=== PATIENT | female | born 1990 | race Caucasian/White ===

== ENCOUNTER 2022-12-09 10:54 | Inpatient (IN) | payer MEDICAID, SELFPAY ==
--- NOTE | ~2022-12-09 | US_ITS ---
EXAMINATION: US ABDOMEN LIMITED CLINICAL INFORMATION: Abdominal pain rule out cholecystitis.. COMPARISON: None TECHNIQUE: Real-time imaging of the right upper quadrant abdominal viscera. FINDINGS: PANCREAS: The visualized portion of the pancreas head and body are normal, portion of the pancreatic body and tail, not visualized are obscured by bowel gas. LIVER: Normal. The liver is normal in size. The liver contour is normal. Parenchymal echogenicity is normal. No focal hepatic lesion. There is no intrahepatic biliary duct dilatation seen. GALLBLADDER: Large gallstones. There is diffuse thickening of the gallbladder wall, there is gallbladder wall edema, gallbladder measure up to 6 mm, tenderness reported pressing on the gallbladder, these combined highly suspicious for acute cholecystitis. COMMON BILE DUCT: Normal in caliber measuring 0.3 cm in diameter. FREE FLUID: None. US/US abdomen limited IMPRESSION: * Ultrasound finding suggest Acute cholecystitis, this can be confirmed by HIDA scan if clinically indicated, surgical consult warranted. (Referring physician staff is being called, to be alerted of the above findings and recommendations.) Darrell Washington
[2022-12-09 11:00] VITALS: BP 129/93; PULSE 120; RESP 16; TEMP 36.9; O2SAT 100; BMI 26.0
[2022-12-09 11:20] LABS: MANUAL DIFF FLAG NO
[2022-12-09 11:23] LABS: Appearance Urine Turbid; Color Urine Yellow; Glucose Urine UA Negative (Negative); Leukocyte Esterase Urine Negative (Negative); Nitrite Urine Negative (Negative); PH 8.5 (5.0-9.0); Specific Gravity - Urine >= 1.030 (1.005-1.025); UMIC TRIGGER UACC YES; Urine Blood Negative (Negative); Urine Ketones Negative (Negative); Urine Protein 30 (1+) mg/dL (Neg-Trace)
[2022-12-09 11:24] LABS: UPreg QC Valid YES; Urine Pregnancy NEGATIVE (NEGATIVE)
[2022-12-09 11:28] LABS: Bacteria Urine None Seen (None Seen); Hyaline Casts Urine 0-2 /LPF (0-2); RBC Urine 0-2 /HPF (0-2); Squamous Epithelial Cell Urine 0-2 /HPF (0-2); WBC Urine 0-5 /HPF (0-5)
[2022-12-09 11:35] LABS: Basophils Absolute Auto 0.1 X10*3/uL (0.0-0.2); Basophils Percent Auto 0.9 % (0-2); Eosinophils Absolute Auto 0.2 X10*3/uL (0.0-0.4); Eosinophils Percent Auto 2.2 % (0-4); Hematocrit 39.3 % (37.0-47.0); Imm Gran Abs Auto 0.01 X10*3/uL (0.00-0.03); Imm Gran Pct Auto 0.1 % (0.0-0.4); Lymphocytes Absolute Auto 1.7 X10*3/uL (1.2-4.9); Lymphocytes Percent Auto 19.8 % (20-40); Mean Corpuscular HGB Conc 33.1 g/dl (31.0-35.0); Mean Corpuscular Hemoglobin 23.3 pg (27.0-33.0); Mean Corpuscular Volume 70.4 fL (80.0-98.0); Mean Platelet Volume 11.5 fL (9.4-12.3); Monocytes Absolute Auto 0.7 X10*3/uL (0.1-1.2); Monocytes Percent Auto 7.5 % (2-11); Neutrophils Percent Auto 69.5 % (45-73); Platelet Count 276 X10*3/uL (160-400); Red Blood Count 5.58 X10*6/uL (4.20-5.50); Red Cell Distribution Width 14.6 % (11.0-16.0); White Blood Count 8.6 X10*3/uL (4.8-10.8)
[2022-12-09 11:50] LABS: Anion Gap 15 (12-20); Blood Urea Nitrogen 8 mg/dL (9-16); Calcium 9.3 mg/dL (8.4-10.2); Carbon Dioxide 22 mmol/L (22-29); Chloride 105 mmol/L (96-108); Creatinine Clr Calc Pharmacy 91.6; Estimated Glomerular Filt Rate > 60; Glucose Random 111 mg/dL (60-115); Potassium 3.7 mmol/L (3.3-5.1); Sodium 138 mmol/L (135-145)
[2022-12-09 12:13] LABS: Alanine Aminotransferase 19 U/L (0-31); Albumin Level 4.3 g/dL (3.5-5.0); Alkaline Phosphatase 120 U/L (39-117); Aspartate Amino Transferase 19 U/L (5-31); Bilirubin Direct 0.2 mg/dL (0.0-0.5); Bilirubin Total 0.9 mg/dL (0.0-1.0); Lipase 18 U/L (8-78); Total Protein 7.8 g/dL (6.5-8.0)
[2022-12-09] MEDS: Ketorolac Tromethamine 15 MG/ML VIAL IVPUSH (13:01)
[2022-12-09] MEDS: 0.9 % Sodium Chloride 1,000 ML 999 ML IV (13:01)
[2022-12-09] MEDS: Magnesium Hydrox/Alum Hydrox 30 ML ORAL.SUSP PO (13:01)
--- NOTE | 2022-12-09 13:05 | PC.NURSE ---
Alert and oriented, respirations even and unlabored. IV established, medicated per the MAR.
[2022-12-09 14:25] VITALS: BP 133/92; PULSE 74; RESP 16; TEMP 36.9; O2SAT 100
[2022-12-09] MEDS: Famotidine/PF 20 MG/2 ML VIAL IVPUSH (14:28)
--- NOTE | 2022-12-09 15:05 | ED_ITS ---
HPI - Abdominal Pain General Chief Complaint: Abdominal Pain Stated Complaint: upper abd pain, back pain Time Seen by Provider: 12/09/22 11:53 Source: patient Mode of arrival: ambulatory Limitations: no limitations History of Present Illness HPI narrative: 32-year-old female presents emergency room complaining of epigastric pain pain started this morning she denies any fevers chills she does have some associated nausea and vomiting with diarrhea yesterday as well. Patient states she has no associated fatty foods or spicy foods she has had no history of surgeries MD elicited complaint: abdominal pain Related Data Allergies Allergy/AdvReac Type Severity Reaction Status Date / Time No Known Allergies Allergy Verified 12/09/22 10:59 [No Known Allergies*] Review of Systems Review of Systems Review of systems: General: Patient denies any fever chills recent illness or falls Musculoskeletal: Denies back pain or body aches or other injuries HEENT: denies headache, runny nose, ear pain Respiratory: denies shortness of breath, cough Cardiovascular: no chest pain or palpitations : denies dysuria, frequency Abdomen: no nausea vomiting denies abdominal pain Extremities: no swelling, no pain Skin: no diaphoresis Yes all other systems are reviewed and are negative PMFSH Social History Social History Advance Directives: No Advance Directives Information Provided: No Physical Exam ED Vital Signs: Vital Signs - 24 hr 12/09/22 11:00 12/09/22 14:25 Temperature 98.4 F 98.5 F Pulse Rate 120 H 74 Respiratory Rate 16 16 Blood Pressure 129/93 H 133/92 H Pulse Oximetry 100 100 Oxygen Delivery Method Room Air Room Air BMI result Body Mass Index 26.0 General: Well-appearing well-nourished in no signs of distress HEENT: Normocephalic atraumatic Neck: No signs of JVD, no masses no tenderness or lymphadenopathy Cardiovascular: Regular rate and rhythm Respiratory: Clear to auscultation bilaterally Abdomen: Soft tender in the epigastric area negative burnett sign no masses Extremities: Normal pedal pulses no signs of edema Skin: Dry warm no rashes Back: No tenderness full ROM Medical Decision Making Medical Decision Making MDM Narrative: I will treat the patient with fluids check labs to rule out cholecystitis. Labs do show an elevation in the alk-phos which time I sent the patient for formal ultrasound formal ultrasound shows acute cholecystitis. I spoke with Dr. Will go from surgery who agrees the patient need admission patient is Rashid on that surgery Differential Diagnosis Differential Diagnoses: The differential diagnosis associated with the presentation includes Gastritis cholecystitis bowel perforation bowel obstruction. Admission/Observation Consideration of admission/observation: Escalation of care including admission/observation considered Consult Healthcare Provider Management of the patient was discussed with: Tenderizer Tender Dr. Ramsey for acute cholecystitis Lab Data MDM Lab Attestation statement: I reviewed the patient's lab results. 12/09/22 11:09 12/09/22 11:09 Labs: Lab Results 12/09/22 12/09/22 12/09/22 Range/Units 11:09 11:09 11:09 WBC 8.6 (4.8-10.8) X10*3/uL RBC 5.58 H (4.20-5.50) X10*6/uL Hgb 13.0 (12.0-16.0) g/dl Hct 39.3 (37.0-47.0) % MCV 70.4 L (80.0-98.0) fL MCH 23.3 L (27.0-33.0) pg MCHC 33.1 (31.0-35.0) g/dl RDW 14.6 (11.0-16.0) % Plt Count 276 (160-400) X10*3/uL MPV 11.5 (9.4-12.3) fL Immature Gran % (Auto) 0.1 (0.0-0.4) % Neut % (Auto) 69.5 (45-73) % Lymph % (Auto) 19.8 L (20-40) % [place] % (Auto) 7.5 (2-11) % Eos % (Auto) 2.2 (0-4) % Baso % (Auto) 0.9 (0-2) % Lymph # (Auto) 1.7 (1.2-4.9) X10*3/uL [place] # (Auto) 0.7 (0.1-1.2) X10*3/uL Eos # (Auto) 0.2 (0.0-0.4) X10*3/uL Baso # (Auto) 0.1 (0.0-0.2) X10*3/uL Abs Immat Gran (auto) 0.01 (0.00-0.03) X10*3/uL Absolute Neuts (auto) 6.0 (2.0-8.3) x10*3/uL Absolute Nucleated RBC 0.000 (0.0-0.012) X10*3/uL Nucleated RBC % (auto) 0.0 (0.0-0.2) /100WBC Sodium 138 (135-145) mmol/L Potassium 3.7 (3.3-5.1) mmol/L Chloride 105 (96-108) mmol/L Carbon Dioxide 22 (22-29) mmol/L Anion Gap 15 (12-20) BUN 8 L (9-16) mg/dL Creatinine 0.74 (0.5-1.4) mg/dL Estim Creat Clear Calc 91.6 Estimated GFR > 60 Random Glucose 111 (60-115) mg/dL Calcium 9.3 (8.4-10.2) mg/dL Total Bilirubin 0.9 (0.0-1.0) mg/dL Direct Bilirubin 0.2 (0.0-0.5) mg/dL AST 19 (5-31) U/L ALT 19 (0-31) U/L Alkaline Phosphatase 120 H (39-117) U/L Total Protein 7.8 (6.5-8.0) g/dL Albumin 4.3 (3.5-5.0) g/dL Lipase 18 (8-78) U/L Urine Color Yellow Urine Appearance Turbid Urine pH 8.5 (5.0-9.0) Ur Specific [place] >= 1.030 H (1.005-1.025) Urine Protein 30 (1+) H (Neg-Trace) mg/dL Urine Glucose (UA) Negative (Negative) mg/dL Urine Ketones Negative (Negative) mg/dL Urine Blood Negative (Negative) Urine Nitrite Negative (Negative) Ur Leukocyte Esterase Negative (Negative) Urine RBC 0-2 (0-2) /HPF Urine WBC 0-5 (0-5) /HPF Ur Squamous Epith Cells 0-2 (0-2) /HPF Urine Bacteria None Seen (None Seen) Hyaline Casts 0-2 (0-2) /LPF Urine Test (NEGATIVE) 12/09/22 Range/Units 11:09 WBC (4.8-10.8) X10*3/uL RBC (4.20-5.50) X10*6/uL Hgb (12.0-16.0) g/dl Hct (37.0-47.0) % MCV (80.0-98.0) fL MCH (27.0-33.0) pg MCHC (31.0-35.0) g/dl RDW (11.0-16.0) % Plt Count (160-400) X10*3/uL MPV (9.4-12.3) fL Immature Gran % (Auto) (0.0-0.4) % Neut % (Auto) (45-73) % Lymph % (Auto) (20-40) % [place] % (Auto) (2-11) % Eos % (Auto) (0-4) % Baso % (Auto) (0-2) % Lymph # (Auto) (1.2-4.9) X10*3/uL [place] # (Auto) (0.1-1.2) X10*3/uL Eos # (Auto) (0.0-0.4) X10*3/uL Baso # (Auto) (0.0-0.2) X10*3/uL Abs Immat Gran (auto) (0.00-0.03) X10*3/uL Absolute Neuts (auto) (2.0-8.3) x10*3/uL Absolute Nucleated RBC (0.0-0.012) X10*3/uL Nucleated RBC % (auto) (0.0-0.2) /100WBC Sodium (135-145) mmol/L Potassium (3.3-5.1) mmol/L Chloride (96-108) mmol/L Carbon Dioxide (22-29) mmol/L Anion Gap (12-20) BUN (9-16) mg/dL Creatinine (0.5-1.4) mg/dL Estim Creat Clear Calc Estimated GFR Random Glucose (60-115) mg/dL Calcium (8.4-10.2) mg/dL Total Bilirubin (0.0-1.0) mg/dL Direct Bilirubin (0.0-0.5) mg/dL AST (5-31) U/L ALT (0-31) U/L Alkaline Phosphatase (39-117) U/L Total Protein (6.5-8.0) g/dL Albumin (3.5-5.0) g/dL Lipase (8-78) U/L Urine Color Urine Appearance Urine pH (5.0-9.0) Ur Specific [place] (1.005-1.025) Urine Protein (Neg-Trace) mg/dL Urine Glucose (UA) (Negative) mg/dL Urine Ketones (Negative) mg/dL Urine Blood (Negative) Urine Nitrite (Negative) Ur Leukocyte Esterase (Negative) Urine RBC (0-2) /HPF Urine WBC (0-5) /HPF Ur Squamous Epith Cells (0-2) /HPF Urine Bacteria (None Seen) Hyaline Casts (0-2) /LPF Urine Test NEGATIVE (NEGATIVE) Independent Interpretation I performed an independent interpretation of an: Ultrasound Radiology Impression Discussion of test interpretation with radiology: I have reviewed the radiologist's reading. Medications Administered Discontinued Medications Generic Name Dose Route Start Last Admin Trade Name Freq PRN Reason Stop Dose Admin Al Hydroxide/Mg Hydroxide 30 ml 12/09/22 12:49 12/09/22 13:01 Magnesium Hydrox/Alum Hydrox 30 Ml Oral.Susp PO 12/09/22 12:50 30 ml ONCE ONE Administration Famotidine 20 mg 12/09/22 14:11 12/09/22 14:28 Famotidine/Pf 20 Mg/2 Ml Vial IVPUSH 12/09/22 14:12 20 mg ONCE ONE Administration Sodium Chloride 1,000 mls @ 999 mls/hr 12/09/22 13:00 12/09/22 13:01 Ns IV 12/09/22 14:00 999 mls/hr .Q1H1M NICOLETTE Administration Ketorolac Tromethamine 15 mg 12/09/22 12:49 12/09/22 13:01 Ketorolac Tromethamine 15 Mg/Ml Vial IVPUSH 12/09/22 12:50 15 mg ONCE ONE Administration Discharge Plan Discharge Clinical Impression: Acute cholecystitis Patient Disposition: Admitted As Inpatient
--- NOTE | 2022-12-09 15:14 | P.HPGS_ITS ---
History of Present Illness History of Present Illness Date of Service: 12/09/22 Chief complaint: acute cholecystitis Narrative: Roxanne Ca is a 32 year old female who reports that she is in the care of [facility] because of a mass on her left gastrocnemius/popliteal fossa for which she states she is taking Nexavar. She also reports a history of sickle cell but it is unclear whether she has trait or the actual disease. She is admitted through the emergency room after developing abdominal pain yesterday and having workup that included CT and ultrasound that showed concerns for acute cholecystitis versus biliary colic. Patient is seen with the help of the pick and shovel worker and her is at the bedside. Patient notes that the pain is abated somewhat but there is still an ache in her right upper quadrant. She has been sipping Gatorade apparently. Review of Systems Review of Systems: Yes all other systems are reviewed and are negative Constitutional: Constitutional: Reports as per [facility] Social History Social History Advance Directives: No Advance Directives Information Provided: No Meds Allergies Allergy/AdvReac Type Severity Reaction Status Date / Time No Known Allergies Allergy Verified 12/09/22 10:59 [No Known Allergies*] Active Medications: Current Medications Hydromorphone HCl (Hydromorphone Hcl 0.5 Mg/0.5 Ml Syringe) 0.25 mg IVPUSH Q2H PRN; Protocol PRN Reason: Pain, Moderate (Pain Scale 4-6 Piperacillin Sod/Tazobactam (Sod 4.5 gm/ Sodium Chloride) 100 mls @ 200 mls/hr IV ONCE ONE Stop: 12/09/22 15:33 Lactated Ringer's (Lr) 1,000 mls @ 100 mls/hr IVCONT .Q10H NICOLETTE Ondansetron HCl (Ondansetron Hcl 4 Mg/2 Ml Vial) 4 mg IVPUSH Q6H PRN PRN Reason: Nausea and Vomiting Sodium Chloride (0.9 % Sodium Chloride Flush 3 Ml Syringe) [facility] Medications Medication Instructions Recorded Confirmed Last Taken Type No Known Home Meds 12/09/22 12/09/22 Unknown History Physical Exam Vital Signs: Vital Signs: Last Vital Signs Temp 98.5 F 12/09/22 14:25 Pulse 74 12/09/22 14:25 Resp 16 12/09/22 14:25 BP 133/92 H 12/09/22 14:25 Pulse Ox 100 12/09/22 14:25 O2 Del Method 12/09/22 14:25 BMI result Body Mass Index 26.0 The patient is non-toxic & in good spirits NC/AT, PERRLA, EOMI Mood, affect & judgment all appear appropriate Sclera anicteric conjunctiva pink and moist Oropharynx is clear with no aphthous ulcers, Mallampati class 4, mucous membranes moist Neck is supple with no masses, adenopathy or bruits Heart is regular, normal S1-S2 no rubs or murmurs Lungs are clear and equal anteriorly with no audible wheezing, rubs or dullness to percussion No CVA tenderness present Abdomen is overweight with no demonstrable hernias. There is vague right upper quadrant discomfort with no peritoneal sign and no guarding No HSM, rebound, rigidity, guarding, masses or bruits are present. Rectal exam is deferred Skin has good turgor and is free of rashes Extremities free of cyanosis clubbing edema but in the patient's left pot infrapopliteal and gastrocnemius area, a firm mass is palpable which is nontender Results Results Labs: Short CBC 12/09/22 Range/Units 11:09 WBC 8.6 (4.8-10.8) X10*3/uL Hgb 13.0 (12.0-16.0) g/dl Hct 39.3 (37.0-47.0) % Plt Count 276 (160-400) X10*3/uL BMP 12/09/22 11:09 Sodium 138 Potassium 3.7 Chloride 105 Carbon Dioxide 22 BUN 8 L Creatinine 0.74 Calcium 9.3 Liver Function 12/09/22 Range/Units 11:09 Total Bilirubin 0.9 (0.0-1.0) mg/dL Direct Bilirubin 0.2 (0.0-0.5) mg/dL AST 19 (5-31) U/L ALT 19 (0-31) U/L Alkaline Phosphatase 120 H (39-117) U/L Albumin 4.3 (3.5-5.0) g/dL Urine 12/09/22 12/09/22 Range/Units 11:09 11:09 Urine Color Yellow Urine Appearance Turbid Urine pH 8.5 (5.0-9.0) Ur Specific [place] >= 1.030 H (1.005-1.025) Urine Protein 30 (1+) H (Neg-Trace) mg/dL Urine Glucose (UA) Negative (Negative) mg/dL Urine Test NEGATIVE (NEGATIVE) Abdominal ultrasound report/results: report reviewed Assessment and Plan (1) Acute cholecystitis: Status: Acute (2) Sickle cell anemia: Status: Acute (3) Mass of left lower leg: Status: Acute Plan NPO, IVF, analgesics & antiemetics See orders Via pick and shovel worker, I explained the difference between a symptomatic gallstones, biliary colic and acute calculous cholecystitis. Since the patient is improving, it is possible she may have experienced biliary colic and I explained that we will continue bowel rest, check her morning labs and physical exam. Patient has requested that I reach out to [facility] and will do so tomorrow. Via pick and shovel worker, I reviewed the inherent risks to a laparoscopic cholecystectomy, possibly open and possible cholangiogram. These risks include, but are not limited to: Bleeding, infection, need for open surgery, the possibility of retained common duct stones, bile leak or bile duct injury that could require ERCP or transfer to a larger institution. The option of coordinating care with her other doctors was also discussed. Her questions and her 's questions seemed to be satisfactorily answered. See orders. Will reassess patient in labs in the morning. I did explain to the patient postop activity restrictions and and that her cholecystectomy will be coordinated based on her symptoms in the morning. Time Spent With Patient Time: Total time managing care of this patient today ____ minutes. Quality Stroke Does the patient have a stroke diagnosis?: No VTE Prior VTE?: No VTE Risk Level:: Surgical - moderate VTE Device Contraindication: N/A - Device Ordered VTE Drug Contraindication: Treatment Not Indicated Procedures Date of Service Date of Service: 12/09/22
[2022-12-09] MEDS: Piperacillin Sodium/Tazobactam 4.5 GM in 0.9 % Sodium Chloride 100 ML IV (15:27)
[2022-12-09] MEDS: Lactated Ringers 1,000 ML 100 ML IVCONT (16:15)
[2022-12-09] MEDS: HYDROmorphone HCl 0.5 MG/0.5 ML SYRINGE 0.25 MG IVPUSH ×2 (17:54→21:53)
[2022-12-09] MEDS: ondansetron HCL 4 MG/2 ML VIAL IVPUSH (17:54)
[2022-12-09 19:23] VITALS: BP 129/87; PULSE 97; RESP 16; TEMP 36.8; O2SAT 100
[2022-12-09 21:53] VITALS: RESP 16
[2022-12-10] VITALS (19 sets, daily range): BP systolic 119–145; BP diastolic 79–100; PULSE 89–120; RESP 14–18; TEMP 36.4–36.9; O2SAT 99–100
[2022-12-10 00:51] LABS: COVID-19 Test Negative (Negative); IDNOW Serial# BCCEAD1C
[2022-12-10] MEDS: Lactated Ringers 1,000 ML 100 ML IVCONT (01:16)
[2022-12-10] MEDS: HYDROmorphone HCl 0.5 MG/0.5 ML SYRINGE 0.25 MG IVPUSH ×3 (01:20→10:24)
[2022-12-10 06:43] LABS: MANUAL DIFF FLAG NO
[2022-12-10 06:54] LABS: Basophils Absolute Auto 0.1 X10*3/uL (0.0-0.2); Basophils Percent Auto 0.9 % (0-2); Eosinophils Absolute Auto 0.1 X10*3/uL (0.0-0.4); Eosinophils Percent Auto 1.3 % (0-4); Hemoglobin 12.4 g/dl (12.0-16.0); Imm Gran Abs Auto 0.04 X10*3/uL (0.00-0.03); Imm Gran Pct Auto 0.4 % (0.0-0.4); Lymphocytes Absolute Auto 1.3 X10*3/uL (1.2-4.9); Lymphocytes Percent Auto 12.6 % (20-40); Mean Corpuscular HGB Conc 32.6 g/dl (31.0-35.0); Mean Corpuscular Hemoglobin 23.1 pg (27.0-33.0); Mean Corpuscular Volume 70.8 fL (80.0-98.0); Mean Platelet Volume 11.6 fL (9.4-12.3); Monocytes Absolute Auto 0.7 X10*3/uL (0.1-1.2); Monocytes Percent Auto 6.6 % (2-11); Neutrophils Absolute Auto 8.1 x10*3/uL (2.0-8.3); Neutrophils Percent Auto 78.2 % (45-73); Platelet Count 240 X10*3/uL (160-400); Red Blood Count 5.37 X10*6/uL (4.20-5.50); Red Cell Distribution Width 14.6 % (11.0-16.0); White Blood Count 10.4 X10*3/uL (4.8-10.8)
--- NOTE | 2022-12-10 07:00 | PM.PNGS ---
Subjective Subjective Date of Service: 12/10/22 Patient reports: still having pain Interval history: The patient is seen with her at the bedside. Hospital interpretive services are present to facilitate discussion. Alberto provided me his cell phone of [phone] Patient reports continued right upper quadrant aching and pain but it is not as bad as when she came in. She otherwise denies chest pain, difficulty breathing or shortness of breath. Physical Exam Vital Signs: Vital Signs: Last Vital Signs Temp 98.5 F 12/10/22 06:25 Pulse 89 12/10/22 06:25 Resp 16 12/10/22 06:39 BP 126/89 12/10/22 06:25 Pulse Ox 99 12/10/22 06:25 O2 Del Method 12/10/22 06:25 BMI result Body Mass Index 26.0 On exam she is nontoxic She has no acute respiratory distress Her abdomen is overweight and soft with ongoing right upper quadrant tenderness it is about the same as yesterday. No peritoneal sign is present Objective Data Active Medications Hydromorphone HCl (Hydromorphone Hcl 0.5 Mg/0.5 Ml Syringe) 0.25 mg IVPUSH Q2H PRN; Protocol PRN Reason: Pain, Moderate (Pain Scale 4-6 Last Admin: 12/10/22 06:39 Dose: 0.25 mg Documented By: ENEDINA Lactated Ringer's (Lr) 1,000 mls @ 100 mls/hr IVCONT .Q10H [facility] Last Admin: 12/10/22 01:16 Dose: 100 mls/hr Documented By: ENEDINA Ondansetron HCl (Ondansetron Hcl 4 Mg/2 Ml Vial) 4 mg IVPUSH Q6H PRN PRN Reason: Nausea and Vomiting Last Admin: 12/09/22 17:54 Dose: 4 mg Documented By: TRAVIS Sodium Chloride (0.9 % Sodium Chloride Flush 3 Ml Syringe) 3 ml IVFLUSH QSHIFT [facility] Last Admin: 12/10/22 01:00 Dose: Not Given Documented By: ENEDINA Non-Admin Reason: IV Running Labs 12/10/22 06:24 12/09/22 11:09 Labs: Laboratory Results - last 24 hr 12/09/22 12/09/22 12/09/22 11:09 11:09 11:09 MCV 70.4 L MCH 23.3 L MCHC 33.1 RDW 14.6 Plt Count 276 MPV 11.5 Immature Gran % (Auto) 0.1 Neut % (Auto) 69.5 Lymph % (Auto) 19.8 L [place] % (Auto) 7.5 Eos % (Auto) 2.2 Baso % (Auto) 0.9 Lymph # (Auto) 1.7 Green # (Auto) 0.7 Eos # (Auto) 0.2 Baso # (Auto) 0.1 Abs Immat Gran (auto) 0.01 Absolute Neuts (auto) 6.0 Absolute Nucleated RBC 0.000 Nucleated RBC % (auto) 0.0 Anion Gap 15 Estim Creat Clear Calc 91.6 Estimated GFR > 60 Random Glucose 111 Calcium 9.3 Total Bilirubin 0.9 Direct Bilirubin 0.2 AST 19 ALT 19 Alkaline Phosphatase 120 H Total Protein 7.8 Albumin 4.3 Lipase 18 Urine Color Yellow Urine Appearance Turbid Urine pH 8.5 Ur Specific [place] >= 1.030 H Urine Protein 30 (1+) H Urine Glucose (UA) Negative Urine Ketones Negative Urine Blood Negative Urine Nitrite Negative Ur Leukocyte Esterase Negative Urine RBC 0-2 Urine WBC 0-5 Ur Squamous Epith Cells 0-2 Urine Bacteria None Seen Hyaline Casts 0-2 Urine Test COVID-19 (NII) COVID-19 Clin Com 12/09/22 12/10/22 12/10/22 11:09 00:32 06:24 MCV 70.8 L MCH 23.1 L MCHC 32.6 RDW 14.6 Plt Count 240 MPV 11.6 Immature Gran % (Auto) 0.4 Neut % (Auto) 78.2 H Lymph % (Auto) 12.6 L [place] % (Auto) 6.6 Eos % (Auto) 1.3 Baso % (Auto) 0.9 Lymph # (Auto) 1.3 Green # (Auto) 0.7 Eos # (Auto) 0.1 Baso # (Auto) 0.1 Abs Immat Gran (auto) 0.04 H Absolute Neuts (auto) 8.1 Absolute Nucleated RBC 0.000 Nucleated RBC % (auto) 0.0 Anion Gap Estim Creat Clear Calc Estimated GFR Random Glucose Calcium Total Bilirubin Direct Bilirubin AST ALT Alkaline Phosphatase Total Protein Albumin Lipase Urine Color Urine Appearance Urine pH Ur Specific [place] Urine Protein Urine Glucose (UA) Urine Ketones Urine Blood Urine Nitrite Ur Leukocyte Esterase Urine RBC Urine WBC Ur Squamous Epith Cells Urine Bacteria Hyaline Casts Urine Test NEGATIVE COVID-19 (INI) Negative COVID-19 Clin Com See Note Procedures Date of Service Date of Service: 12/10/22 Progress Note: A&P Assessment and plan (1) Acute cholecystitis: Status: Acute (2) Sickle cell anemia: Status: Acute (3) Mass of left lower leg: Status: Acute Plan While the labs are reassuring, the ongoing pain is suggestive of acute calculous cholecystitis. Given this, I have recommended laparoscopic cholecystectomy, possible open with possible cholangiogram. This was all explained via auditor appraiser along with the option of continued observation or delayed surgery. I also reviewed the inherent risks to surgery which include, but are not limited to: Bleeding that could require another operation or blood transfusion, the need for open surgery, the unlikely but possible issue of bile leak that could require an ERCP, the risk of retained common duct stones that could require an ERCP, the risk of common bile duct injury which would require transfer to a larger institution for another operation. Patient seemed to understand her options, declined a construction skills teacher or 2nd opinion and wants to proceed. The patient will void her bladder decorating consultant, have SCDs and continued antibiotics. Will proceed today. Time Spent With Patient Time: Total time managing care of this patient today ____ minutes. Quality Stroke Does the patient have a stroke diagnosis?: No VTE Prior VTE?: No VTE Risk Level:: Surgical - moderate VTE Device Contraindication: N/A - Device Ordered VTE Drug Contraindication: Treatment Not Indicated
[2022-12-10 07:09] LABS: Alanine Aminotransferase 17 U/L (0-31); Albumin Level 4.1 g/dL (3.5-5.0); Alkaline Phosphatase 117 U/L (39-117); Anion Gap 13 (12-20); Aspartate Amino Transferase 15 U/L (5-31); Bilirubin Total 1.1 mg/dL (0.0-1.0); Blood Urea Nitrogen 3 mg/dL (9-16); Calcium 9.1 mg/dL (8.4-10.2); Carbon Dioxide 19 mmol/L (22-29); Chloride 107 mmol/L (96-108); Creatinine Clr Calc Pharmacy 111.2; Estimated Glomerular Filt Rate > 60; Glucose Random 99 mg/dL (60-115); Potassium 3.9 mmol/L (3.3-5.1); Sodium 135 mmol/L (135-145); Total Protein 7.3 g/dL (6.5-8.0)
[2022-12-10] MEDS: ceFAZolin Sodium/Dextrose,Iso 2 GM/50 ML PIGGYBACK IV (08:53)
--- NOTE | 2022-12-10 08:58 | PC.NURSE ---
Pt alert/oriented. Sammarinese speaking. States back pain at this time, chronic in nature. Denies abd pain/n/v. VSS. NPO. ABX started. Pillow and warm blanket given for comfort. Aware of plan for surgical intervention today. Family at bedside
--- NOTE | 2022-12-10 09:12 | W.PM.OPN ---
Operative Note Operative Note Date of Service: 12/10/22 Narrative: Preop diagnosis: [Acute calculous cholecystitis] Postop diagnosis: [Same and hydrops of the gallbladder] Procedure: [Laparoscopic cholecystectomy] Surgeon: Dennis Roman MD Assist: [Darlene Quintana PA-C] Anesthesia: [GET; local Marcaine, 0.5% with epi] Estimated blood loss: [10cc] Specimen: [1) GB fluid; 2) GB & contents] Intraoperative findings: [Tense hydrops of the gallbladder requiring decompression; short edematous cystic duct measuring approximately 4-5 mm; 2-3 mm cystic artery in the usual location. Field was extremely edematous secondary to the hydrops.] Indications: [The patient is a 32-year-old woman with sickle cell and a mass on her left lower extremity managed with Nexavar that is being followed at [facility]. She presented with biliary colic and has failed to progress and given continuing pain consistent with acute calculous cholecystitis, laparoscopic cholecystectomy was recommended. Via golf club head inspector, I reviewed the option of continued observation and 2nd opinion which was declined. I also reviewed the inherent risks to surgery which include, but are not limited to: Bleeding that could require another operation or blood transfusion, the need for open surgery, the unlikely but possible issue of bile leak that could require an ERCP, the risk of retained common duct stones that could require an ERCP, the risk of common bile duct injury which would require transfer to a larger institution for another operation. Patient seemed to understand her options and wants to proceed. ] Procedure: [The patient was identified in preoperative holding and again in the operating room and placed supine on the table. The patient voided bladder cleaning professional, sequential compression stockings were in place, subcu heparin had been administered and antibiotics per protocol were given. The patient was induced in general endotracheal anesthesia administered with excellent effect. An appropriate time-out was performed. The patient's abdomen was widely prepped and draped in the usual manner for surgery using chlorhexidine. Preemptive local was used at all trocar insertion sites. Again at the supraumbilical location and after infiltrating local, made a stab incision and placed a Veress needle without difficulty. An appropriate drop test was performed and a pneumoperitoneum of 15 mmHg was obtained using carbon dioxide. opening pressure was 7mmHg. Next, the needle was withdrawn and a 5 mm/30 degree laparoscoped over Optiview trocar was used to access the abdomen without incident. Upon examining the abdomen, there was no evidence of injury from the Veress needle or trocar. Next, 5 mm trocars were placed in the epigastric, subcostal and right anterior axillary line just above the line of the umbilicus. Under direct laparoscopic vision, the 5 mm umbilical port was upsized to a 12 mm. The patient was then positioned in reverse Trendelenburg position and banked left. The gallbladder was clearly identified and noted to be tense and edematous, so it required needle decompression with the cyst aspirator and that it was grasped by its fundus. It was retracted cranially and anteriorly and dissection began in the cystic triangle. The cystic duct was identified at its junction on the gallbladder and dissection began laterally, then circumferentially dissected using the [place] dissector and hook. The cystic artery was then carefully identified and circumferentially dissected and noted to be rather edematous due to the. Once dissection of both structures was complete and the critical view of safety demonstrated, the duct and artery were double clipped proximally and once distally and sharply divided. Electrocautery was used to remove the gallbladder from its fossa on the liver. Progress was slow due to the edema and foaming at the interface between the gallbladder and the liver. Liver bed was inspected for hemostasis and the clips were noted to be on the respective structures. The gallbladder was placed in an Endo-Catch bag and delivered through the umbilicus under direct laparoscopic vision. The abdomen was again inspected with the laparoscoped and a abdomen deflated to assess for hemostasis. The patient was returned to neutral position, the abdomen deflated and the fascia of the supraumbilical incision closed with interrupted Vicryl sutures. Skin was closed with 4-0 Monocryl subcuticular sutures. Mastisol and Steri-Strips were applied followed by Band-Aids. The patient tolerated the procedure well and was extubated recovered in stable condition. All sponge instrument counts were correct. At the patient's request I called [Alberto with [employer] Cleaning Machine Operator Hel[employer] Deborah] at [[phone]] and there was no answer. Message left explaining the operation went well was left by Deborah]
--- NOTE | 2022-12-10 10:38 | HO.ANESPROP2 ---
HPI - Anesthesia Eval Consult details Narrative: 32yo female patient for Laparoscopic cholecystectomy PMFSH Active Problems Active Problems: All Active Problems (Updated 12/10/22 @ 10:50 by Ila Betancourt MD) Mass of left lower leg (Acute) . 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 Has not had visible bleeding from nares Denies chest pain or any cardiac problems. Denies HTN Past Medical History Medical History (Updated 12/10/22 @ 10:52 by Korin Smith RN) Benign tumor Sickle cell trait Family History Family history of problems with anesthesia: No Surgical History Surgical History (Updated 12/10/22 @ 11:02 by Ila Betancourt MD) Hx of section Hx of cystoscopy History of Problems with Anesthesia: No Social History Social History Alcohol intake: current Alcohol intake frequency: holidays/special occasions only Alcohol type: hard liquor Patient Tobacco Use Status: Never used Tobacco Smoked in Last 30 Days: No Use of substances other than those prescribed or required for medical reasons: No Are you DNR?: No Advance Directives: No Advance Directives Information Provided: No Meds Allergies Allergy/AdvReac Type Severity Reaction Status Date / Time No Known Allergies Allergy Verified 12/10/22 10:44 [No Known Allergies*] Active Medications: Current Medications Hydromorphone HCl (Hydromorphone Hcl 0.5 Mg/0.5 Ml Syringe) 0.25 mg IVPUSH Q2H PRN; Protocol PRN Reason: Pain, Moderate (Pain Scale 4-6 Last Admin: 12/10/22 10:24 Dose: 0.25 mg Lactated Ringer's (Lr) 1,000 mls @ 100 mls/hr IVCONT .Q10H NICOLETTE Last Admin: 12/10/22 01:16 Dose: 100 mls/hr Ondansetron HCl (Ondansetron Hcl 4 Mg/2 Ml Vial) 4 mg IVPUSH Q6H PRN PRN Reason: Nausea and Vomiting Last Admin: 12/09/22 17:54 Dose: 4 mg Sodium Chloride (0.9 % Sodium Chloride Flush 3 Ml Syringe) 3 ml IVFLUSH QSHIFT NICOLETTE Last Admin: 12/10/22 08:53 Dose: Not Given Home Medications Medication Instructions Recorded Confirmed Last Taken Type No Known Home Meds 12/09/22 12/09/22 Unknown History Exam Exam Date and Time: December 10, 2022 1038 Height,Weight and Vital Signs: Height 5 ft 1 in Weight 62.596 kg Last Vital Signs Temp 98.5 F 12/10/22 06:25 Pulse 92 12/10/22 08:57 Resp 16 12/10/22 08:57 BP 141/97 H 12/10/22 08:57 Pulse Ox 100 12/10/22 08:57 O2 Del Method 12/10/22 08:57 Vital Signs Temp Pulse Resp BP Pulse Ox O2 Del Method 12/10/22 10:49 98.2 F 113 H 15 126/91 H 99 Room Air 12/10/22 08:57 92 16 141/97 H 100 Room Air 12/10/22 06:39 16 12/10/22 06:25 98.5 F 89 126/89 99 Room Air 12/10/22 01:20 14 12/09/22 21:53 16 12/09/22 19:23 98.2 F 97 16 129/87 100 Room Air 12/09/22 14:25 98.5 F 74 16 133/92 H 100 Room Air Pertinent Lab Results Pertinent Lab Results: Laboratory Tests 12/09/22 12/09/22 12/09/22 11:09 11:09 11:09 WBC 8.6 RBC 5.58 H Hgb 13.0 Hct 39.3 MCV 70.4 L MCH 23.3 L MCHC 33.1 RDW 14.6 Plt Count 276 MPV 11.5 Immature Gran % (Auto) 0.1 Neut % (Auto) 69.5 Lymph % (Auto) 19.8 L Bull[place] % (Auto) 7.5 Eos % (Auto) 2.2 Baso % (Auto) 0.9 Lymph # (Auto) 1.7 [place] # (Auto) 0.7 Eos # (Auto) 0.2 Baso # (Auto) 0.1 Abs Immat Gran (auto) 0.01 Absolute Neuts (auto) 6.0 Absolute Nucleated RBC 0.000 Nucleated RBC % (auto) 0.0 Sodium 138 Potassium 3.7 Chloride 105 Carbon Dioxide 22 Anion Gap 15 BUN 8 L Creatinine 0.74 Estim Creat Clear Calc 91.6 Estimated GFR > 60 Random Glucose 111 Calcium 9.3 Total Bilirubin 0.9 Direct Bilirubin 0.2 AST 19 ALT 19 Alkaline Phosphatase 120 H Total Protein 7.8 Albumin 4.3 Lipase 18 Urine Color Yellow Urine Appearance Turbid Urine pH 8.5 Ur Specific [place] >= 1.030 H Urine Protein 30 (1+) H Urine Glucose (UA) Negative Urine Ketones Negative Urine Blood Negative Urine Nitrite Negative Ur Leukocyte Esterase Negative Urine RBC 0-2 Urine WBC 0-5 Ur Squamous Epith Cells 0-2 Urine Bacteria None Seen Hyaline Casts 0-2 Urine Test COVID-19 (NII) COVID-19 Clin Com 12/09/22 12/10/22 12/10/22 11:09 00:32 06:24 WBC 10.4 RBC 5.37 Hgb 12.4 Hct 38.0 MCV 70.8 L MCH 23.1 L MCHC 32.6 RDW 14.6 Plt Count 240 MPV 11.6 Immature Gran % (Auto) 0.4 Neut % (Auto) 78.2 H Lymph % (Auto) 12.6 L [place] % (Auto) 6.6 Eos % (Auto) 1.3 Baso % (Auto) 0.9 Lymph # (Auto) 1.3 [place] # (Auto) 0.7 Eos # (Auto) 0.1 Baso # (Auto) 0.1 Abs Immat Gran (auto) 0.04 H Absolute Neuts (auto) 8.1 Absolute Nucleated RBC 0.000 Nucleated RBC % (auto) 0.0 Sodium Potassium Chloride Carbon Dioxide Anion Gap BUN Creatinine Estim Creat Clear Calc Estimated GFR Random Glucose Calcium Total Bilirubin Direct Bilirubin AST ALT Alkaline Phosphatase Total Protein Albumin Lipase Urine Color Urine Appearance Urine pH Ur Specific [place] Urine Protein Urine Glucose (UA) Urine Ketones Urine Blood Urine Nitrite Ur Leukocyte Esterase Urine RBC Urine WBC Ur Squamous Epith Cells Urine Bacteria Hyaline Casts Urine Test NEGATIVE COVID-19 (NII) Negative COVID-19 Clin Com See Note 12/10/22 06:24 WBC RBC Hgb Hct MCV MCH MCHC RDW Plt Count MPV Immature Gran % (Auto) Neut % (Auto) Lymph % (Auto) [place] % (Auto) Eos % (Auto) Baso % (Auto) Lymph # (Auto) [place] # (Auto) Eos # (Auto) Baso # (Auto) Abs Immat Gran (auto) Absolute Neuts (auto) Absolute Nucleated RBC Nucleated RBC % (auto) Sodium 135 Potassium 3.9 Chloride 107 Carbon Dioxide 19 L Anion Gap 13 BUN 3 L Creatinine 0.61 Estim Creat Clear Calc 111.2 Estimated GFR > 60 Random Glucose 99 Calcium 9.1 Total Bilirubin 1.1 H Direct Bilirubin AST 15 ALT 17 Alkaline Phosphatase 117 Total Protein 7.3 Albumin 4.1 Lipase Urine Color Urine Appearance Urine pH Ur Specific [place] Urine Protein Urine Glucose (UA) Urine Ketones Urine Blood Urine Nitrite Ur Leukocyte Esterase Urine RBC Urine WBC Ur Squamous Epith Cells Urine Bacteria Hyaline Casts Urine Test COVID-19 (NII) COVID-19 Clin Com Airway Mallampati Class: II TM Dist: >3cm Neck ROM: Full Loose/Missing/Broken Teeth: No (Denies broken, loose, missing teeth but top front teeth ridged) Heart: RRR Lungs: CTAB Assessment and Plan Assessment Anesthesia Assessment: Anesthesia Plan Discussed and Chart Reviewed Final Anesthetic Review Family History of Problems with Anesthesia: No History of Problems with Anesthesia: No NPO: Yes ASA Class: III and Emergency Final Preanesthetic Review: No Changes in Pt Med Stat, Meds/Allgs Chart Reviewed, Consent Obtained/Reviewed and Anes Risks/Benef Reviewed Patient Risk: Intermediate Procedure Risk: Intermediate Assessment/Block/Sedation in SS: Assess/Block/Sedation- Anesthetic Plan Anesthetic Plan: GA Disposition: Standard PACU and Inp. Admit - Standard Bed
[2022-12-10] MEDS: ondansetron HCL 4 MG/2 ML VIAL IVPUSH (13:27)
--- NOTE | 2022-12-10 14:30 | PM.EVENT ---
Event Note Date of Service: 12/10/22 Event Note: The patient's , Alberto, saw me in the sewell. He apparently is not getting a cellphone signal and did not get the message earlier in the day. The patient's mother was also present. With the help of deaf interpreter Alan, explained that the operation was done laparoscopically and went well. The patient is antineoplastic medicine prescribed by [facility] does increase the risk of healing complications but, overall the operation went well. Activity and dietary restrictions were reviewed and the family's questions answered. Time Spent With Patient Time: Total time managing care of this patient today ____ minutes.
[2022-12-10] MEDS: fentaNYL citrate/PF 100 MCG/2 ML VIAL 25 MCG IVPUSH (14:39)
[2022-12-10] MEDS: oxyCODONE HCl Immed Release 5 MG TABLET PO (14:41)
[2022-12-10] MEDS: Lactated Ringers 1,000 ML 80 ML IVCONT ×2 (17:08→22:58)
[2022-12-10] MEDS: 0.9 % Sodium Chloride Flush 3 ML SYRINGE IVFLUSH ×2 (17:08→19:40)
[2022-12-10] MEDS: Piperacillin Sodium/Tazobactam 3.375 GM in 0.9 % Sodium Chloride 50 ML IV (19:40)
[2022-12-10] MEDS: Docusate Sodium 100 MG CAPSULE 200 MG PO (19:40)
[2022-12-11] MEDS: Piperacillin Sodium/Tazobactam 3.375 GM in 0.9 % Sodium Chloride 50 ML IV ×2 (01:36→06:33)
[2022-12-11] MEDS: HYDROmorphone HCl 0.5 MG/0.5 ML SYRINGE 0.25 MG IVPUSH (03:08)
[2022-12-11 03:18] VITALS: BP 131/88; PULSE 107; RESP 18; TEMP 36.8; O2SAT 100
[2022-12-11] MEDS: 0.9 % Sodium Chloride Flush 3 ML SYRINGE IVFLUSH (06:33)
[2022-12-11 07:35] VITALS: BP 120/78; PULSE 101; RESP 18; TEMP 37.2; O2SAT 100
--- NOTE | 2022-12-11 08:07 | PM.PNGS ---
Subjective Subjective Date of Service: 12/11/22 Patient reports: feels better and tolerating liquids well Interval history: Patient is seen with the help of the hospital signal processing engineer. She reports some minor incisional pain but is otherwise doing well. She denies any difficulty breathing or shortness of breath. For unclear reasons, her morning labs were not drawn Physical Exam Vital Signs: Vital Signs: Last Vital Signs Temp 98.9 F 12/11/22 07:35 Pulse 101 H 12/11/22 07:35 Resp 18 12/11/22 07:35 BP 120/78 12/11/22 07:35 Pulse Ox 100 12/11/22 07:35 O2 Del Method 12/11/22 07:35 BMI result Body Mass Index 26.0 On exam she is nontoxic She is having no respiratory distress Dressings are clean dry and intact Objective Data Active Medications Acetaminophen (Acetaminophen 325 Mg Tablet) 975 mg PO Q6H PRN PRN Reason: Pain, Mild (Pain Scale 1-3) Docusate Sodium (Docusate Sodium 100 Mg Capsule) 200 mg PO BID [facility] Last Admin: 12/10/22 19:40 Dose: 200 mg Documented By: FIOR Hydromorphone HCl (Hydromorphone Hcl 0.5 Mg/0.5 Ml Syringe) 0.25 mg IVPUSH Q2H PRN; Protocol PRN Reason: Pain, Moderate (Pain Scale 4-6 Last Admin: 12/11/22 03:08 Dose: 0.25 mg Documented By: FIOR Lactated Ringer's (Lr) 1,000 mls @ 80 mls/hr IVCONT .[id number] [facility] Last Admin: 12/10/22 22:58 Dose: 80 mls/hr Documented By: FIOR Piperacillin Sod/Tazobactam (Sod 3.375 gm/ Sodium Chloride) 50 mls @ 100 mls/hr IV Q6H [facility] Last Infusion: 12/11/22 07:09 Dose: 0 mls/hr Documented By: FIOR Ondansetron HCl (Ondansetron Hcl 4 Mg/2 Ml Vial) 4 mg IVPUSH Q6H PRN PRN Reason: Nausea and Vomiting Last Admin: 12/10/22 13:27 Dose: 4 mg Documented By: DANIELLE Oxycodone HCl (Oxycodone Hcl Immed Release 5 Mg Tablet) 5 mg PO Q4H PRN PRN Reason: Pain, Moderate (Pain Scale 4-6 Last Admin: 12/10/22 14:41 Dose: 5 mg Documented By: DANIELLE Sodium Chloride (0.9 % Sodium Chloride Flush 3 Ml Syringe) 3 ml IVFLUSH QSHIFT NICOLETTE Last Admin: 12/11/22 06:33 Dose: 3 ml Documented By: SINDYB Labs 12/10/22 06:24 12/10/22 06:24 Labs: 12/11/2022 morning labs are pending. Discharge is held up until labs are drawn Microbiology Microbiology Results: Microbiology 12/10/22 Unknown Gram Stain - Final Gallbladder Fluid Procedures Date of Service Date of Service: 12/11/22 Progress Note: A&P Assessment and plan (1) Acute cholecystitis: Status: Acute (2) Sickle cell anemia: Status: Acute (3) Mass of left lower leg: Status: Acute Plan Await morning labs for possible discharge later today Instructions regarding diet and activity reviewed and apparently understood. Advanced to low-fat diet. The importance of contacting [facility] regarding her recent emergent surgery was reviewed and apparently understood. Time Spent With Patient Time: Total time managing care of this patient today ____ minutes. Quality Stroke Does the patient have a stroke diagnosis?: No VTE Prior VTE?: No VTE Risk Level:: Surgical - moderate VTE Device Contraindication: N/A - Device Ordered VTE Drug Contraindication: Treatment Not Indicated
[2022-12-11 08:24] LABS: MANUAL DIFF FLAG NO
[2022-12-11 08:25] LABS: Basophils Percent Auto 0.4 % (0-2); Eosinophils Absolute Auto 0.1 X10*3/uL (0.0-0.4); Eosinophils Percent Auto 0.8 % (0-4); Hematocrit 34.9 % (37.0-47.0); Hemoglobin 11.7 g/dl (12.0-16.0); Imm Gran Abs Auto 0.04 X10*3/uL (0.00-0.03); Imm Gran Pct Auto 0.4 % (0.0-0.4); Lymphocytes Absolute Auto 2.1 X10*3/uL (1.2-4.9); Lymphocytes Percent Auto 19.1 % (20-40); Mean Corpuscular HGB Conc 33.5 g/dl (31.0-35.0); Mean Corpuscular Hemoglobin 23.5 pg (27.0-33.0); Mean Corpuscular Volume 70.1 fL (80.0-98.0); Mean Platelet Volume 11.2 fL (9.4-12.3); Monocytes Absolute Auto 0.9 X10*3/uL (0.1-1.2); Monocytes Percent Auto 8.4 % (2-11); Neutrophils Absolute Auto 7.7 x10*3/uL (2.0-8.3); Neutrophils Percent Auto 70.9 % (45-73); Platelet Count 242 X10*3/uL (160-400); Red Blood Count 4.98 X10*6/uL (4.20-5.50); Red Cell Distribution Width 14.7 % (11.0-16.0); White Blood Count 10.8 X10*3/uL (4.8-10.8)
[2022-12-11 08:40] LABS: Alanine Aminotransferase 44 U/L (0-31); Albumin Level 3.7 g/dL (3.5-5.0); Alkaline Phosphatase 107 U/L (39-117); Anion Gap 14 (12-20); Aspartate Amino Transferase 63 U/L (5-31); Bilirubin Total 1.3 mg/dL (0.0-1.0); Blood Urea Nitrogen 5 mg/dL (9-16); Calcium 8.8 mg/dL (8.4-10.2); Carbon Dioxide 22 mmol/L (22-29); Chloride 107 mmol/L (96-108); Creatinine Clr Calc Pharmacy 96.9; Estimated Glomerular Filt Rate > 60; Glucose Random 89 mg/dL (60-115); Potassium 3.8 mmol/L (3.3-5.1); Sodium 139 mmol/L (135-145); Total Protein 6.6 g/dL (6.5-8.0)
--- NOTE | 2022-12-11 09:26 | PM.DS ---
DS: Providers Provider Date of Service: 12/11/22 Date of admission: 12/09/22 15:09 Primary care physician: Luis Eduardo Deleon MD DS: Diagnosis Discharge Diagnosis (1) Acute cholecystitis: Status: Acute (2) Sickle cell anemia: Status: Acute (3) Mass of left lower leg: Status: Acute DS: Summary Hospital Course Hospital Course: See admitting H and P for full details. Briefly, this 32-year-old woman with sickle cell trait and an unknown left lower extremity mass being treated at [facility] presented with biliary colic versus acute calculous cholecystitis. When she failed to improve, she was taken to surgery and noted to have hydrops and early acute calculous cholecystitis. Following uneventful laparoscopic cholecystectomy, she tolerated clear liquids, was diet advanced to a low-fat diet and discharged in improved condition. The importance of follow-up with her PCP and physicians at [facility] was reviewed and apparently understood. Time spent discussing smoking cessation with patient: 3 to 10 minutes Time Spent with Patient Time attestation: Total time managing care of this patient today ____ minutes. Discharge coordination time: Less than 30 minutes Quality: Safe Use of Opioids Does Pt have an Active Cancer Diagnosis on the Problem List?: No Quality: Stroke Does the patient have a stroke diagnosis?: No Physical Exam Vital Signs: Vital Signs: Last Vital Signs Temp 98.9 F 12/11/22 07:35 Pulse 101 H 12/11/22 07:35 Resp 18 12/11/22 07:35 BP 120/78 12/11/22 07:35 Pulse Ox 100 12/11/22 07:35 O2 Del Method 12/11/22 07:35 BMI result Body Mass Index 26.0 DS: Data Data Completed and Pending Pending studies at discharge: Pending at discharge 12/10/22 12:21 Surgical [PTH] Routine Labs on day of discharge: Laboratory Results - last 24 hr 12/11/22 12/11/22 08:18 08:18 WBC 10.8 RBC 4.98 Hgb 11.7 L Hct 34.9 L MCV 70.1 L MCH 23.5 L MCHC 33.5 RDW 14.7 Plt Count 242 MPV 11.2 Immature Gran % (Auto) 0.4 Neut % (Auto) 70.9 Lymph % (Auto) 19.1 L [place] % (Auto) 8.4 Eos % (Auto) 0.8 Baso % (Auto) 0.4 Lymph # (Auto) 2.1 Stewart # (Auto) 0.9 Eos # (Auto) 0.1 Baso # (Auto) 0.0 Abs Immat Gran (auto) 0.04 H Absolute Neuts (auto) 7.7 Absolute Nucleated RBC 0.000 Nucleated RBC % (auto) 0.0 Sodium 139 Potassium 3.8 Chloride 107 Carbon Dioxide 22 Anion Gap 14 BUN 5 L Creatinine 0.70 Estim Creat Clear Calc 96.9 Estimated GFR > 60 Random Glucose 89 Calcium 8.8 Total Bilirubin 1.3 H AST 63 H ALT 44 H Alkaline Phosphatase 107 Total Protein 6.6 Albumin 3.7 Preliminary micro results at discharge 12/10/22 Unknown Routine Culture - Preliminary Gallbladder Fluid No growth to date. Discharge Plan Discharge Anticipated Discharge Date/Time: 12/11/22 09:24 Patient Disposition: Home, Self-Care Discharge Diagnosis: Acute calculous cholecystitis, status post laparoscopic cholecystectomy Referrals: Name,MD Luis Eduardo [Primary Care Provider] - 1 Week Dennis Roman MD [Physician] - 1 Week Discharge Medications: New oxycodone 5 mg tablet 5 mg PO Q4H PRN (Reason: pain) Qty: 14 0RF Rx Instructions: Partial Fill upon patient request. Continued Nexavar 400 mg PO DAILY Label Comments: medication prescribed by Kate Alexis Discharge Orders: Discharge Order (Routine); Ordered 12/11/22 Ordered By: Dennis Roman Diet: Low Fat Activity on Discharge: No heavy lifting Stand Alone Forms: Patient Portal Discharge page Activity Restrictions/Additional Instructions: You had a laparoscopic cholecystectomy performed by Dr. Roman. It is normal to experience some neck or shoulder pain from the gas used to inflate your abdomen. It is also normal to have pain or discomfort in your abdomen/belly as well as at the trocar sites (small incisions). This discomfort will resolve over the next 1-3 days, however, if it gets progressively worse, if you should develop worsening pain, nausea, vomiting and cannot keep liquids down, chest pain, difficulty breathing or shortness of breath, fevers over 100F please report to the nearest emergency department. Unless otherwise directed by Dr. Roman, you should resume taking your regular medications. Contact your [facility] at [facility] to advise them that you had urgent surgery because of acute calculous cholecystitis. They may need to change or gesture medications. As Dr. Roman reviewed in the office, you must not lift more than 20 lb for the next 4 weeks. Strenuous activities can tear out your sutures and cause an incisional hernia that would require another operation. Activities to be avoided include: sports, running, bicycling, yoga, lifting more than 20 lb, digging, gardening, splitting/carrying wood, swimming, hiking uphill, and other activities. If you have questions regarding this specific activity, please check with Dr. Roman. If your incisions become red, swollen, tender or draining pus, please contact Dr. Roman or go to the nearest emergency department. Do not shower or bathe for 48 hours. If there are bandages on your incisions, remove them in 48 hours. Do not allow your bandages to become wet for 48 hours. Do not soak in a tub or swimming pool until your incisions have completely sealed, usually 2 or more weeks. After the dressings are removed in 48 hours, you will notice paper tapes called butterflies/Steri-Strips. These tapes will fall off on their own in 1-2 weeks. You do not need to apply another bandage unless your clothing irritates your incisions. If you need to place another Band-Aid on your incisions, be sure to wait until the Steri strip is dry. You have been prescribed narcotic pain medicine that will cause constipation. Please purchase [id number] stool softener known as Colace/docusate, 100 mg. Take 2 tablets with breakfast and the morning and 2 tablets in the evening after dinner until your bowels are moving and urine or longer taking narcotics. Please note that if you are not taking narcotics, the general anesthesia for the procedure can still cause constipation. If you experience diarrhea, stop taking the stool softener medicine. You can take [id number] Tylenol/acetaminophen with xzey-cpj-ibacfhx ibuprofen or naproxen for pain unless you have an allergy or medical reason you are not not allowed to take these medications, such as peptic ulcers, taking blood thinners or kidney problems. You should also use ice packs to the operative site to help minimize pain and swelling for the first 3 days, or as needed afterwards. Unless there is a medical reason to avoid these medicines, you should take 2 mkuj-voj-nrnbqzp Tylenol with two (2) mrre-yvr-oqsgszj ibuprofen together, every 6 hours for the first 3 days to help with pain. Remember that the gallbladder helps to to digest fatty foods. If you eat fried foods; rich, creamy sauces; cheese; gravies or other such heavy, greasy foods, you will likely develop gas and bloating and diarrhea. To minimize this risk, eat a high protein, high-fiber, low-fat diet for the next few weeks. Care Plan Goals: Return to baseline health and gradual return to activity following recovery period. Health Concerns: Sickle cell trait acute cholecystitis Plan of Treatment: S/p laparoscopic cholecystectomy Pain control Low fat diet Follow up in office with Dr. Roman Assessment: Doing well post operatively.
[2022-12-11] MEDS: Docusate Sodium 100 MG CAPSULE 200 MG PO (09:50)
[2022-12-11] MEDS: oxyCODONE HCl Immed Release 5 MG TABLET PO (11:37)
--- NOTE | 2022-12-11 11:58 | MHC.CM.PN ---
Met with pt to discuss d/c planning needs: pt resides w/spouse and is independent with care needs. Family assists w/transportation needs. D/C plan is for a return to home w/family support: pt has guests in room who will transport pt to home after lunch.
--- NOTE | 2022-12-11 12:13 | HO.POSTANES ---
Post Anesthesia Evaluation Post Anesthesia Evaluation Vital Signs: Vital Signs Temp Pulse Resp BP Pulse Ox O2 Del Method 12/11/22 07:35 98.9 F 101 H 18 120/78 100 Room Air 12/11/22 03:18 98.3 F 107 H 18 131/88 100 Room Air Anesthesia: General Endotracheal-GETA Mental Status: Awake Pain Control: Satisfactory Nausea/Vomiting: None Hydration: Adequate Anesthesia-Related Issues: No Anes. Related Issues
[2022-12-11] MEDS: Simethicone 80 MG TAB.CHEW 160 MG PO (13:00)
--- NOTE | 2022-12-11 13:26 | PC.NURSE ---
Pt d/c home ambulates out of hospital with the assistance of family member. Pt denies chest pain, SOB, headache, and Neuro is intact.
== END 2022-12-11 13:26 | disposition home or self-care (01) | DRG 263 ==
LOC: HO.ED 15:10 → HO.EDOVER 15:24 → HO.S3 12-10 14:36
PROVIDERS: Admitting Provider Surgery; Emergency Provider Student in an Organized Health Care Education/Training Program; PCP Internal Medicine Geriatric Medicine; Visit Provider Surgery
PROC: 0FT44ZZ Resection of Gallbladder, Percutaneous Endoscopic Approach (ICD-10-PCS; CPT 47562; principal; 2022-12-10 10:20)
DX: K80.00 Calculus of gallbladder with acute cholecystitis without obstruction (principal); K82.1 Hydrops of gallbladder; D57.3 Sickle-cell trait; D36.7 Benign neoplasm of other specified sites; Z20.822 Contact with and (suspected) exposure to COVID-19; Z79.899 Other long term (current) drug therapy
CPT/HCPCS: 47562; 36415; 76705; 80048; 80053; 80076; 81001; 81025; 83690; 85025; 87070; 87205; 87635; 88304; 99221; 99285; J0131; J0690; J1100; J1170; J1885; J2250; J2405; J2543; J2795; J3010

== ENCOUNTER → 2023-01-04 11:33 | Outpatient (BNVA) | payer MEDICAID, SELFPAY | PROVIDERS: PCP Internal Medicine Geriatric Medicine; Referring Provider Internal Medicine Geriatric Medicine; Visit Provider Surgery | DX: Z13.89 Encounter for screening for other disorder (principal) ==

== ENCOUNTER 2023-08-17 15:45 | Emergency (ER) | payer MEDICAID, SELFPAY ==
--- NOTE | ~2023-08-17 | XR_ITS ---
EXAMINATION: XR LUMBOSACRAL SPINE CLINICAL INFORMATION: Pain without injury COMPARISON: None available. TECHNIQUE: Three views of the lumbosacral spine. FINDINGS: No evidence of compression injury. The vertebral body heights and disc heights are fairly well-maintained. The SI joints are grossly patent. No lytic and degenerative changes are seen here. There is no bony erosion. XR/XR lumbar spine 2-3V IMPRESSION: No acute bony finding.
[2023-08-17 16:33] VITALS: BP 107/69; PULSE 94; RESP 18; TEMP 36.7; O2SAT 100; BMI 23.7
--- NOTE | 2023-08-17 16:38 | ED.BACK ---
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 She denies any fall or other trauma. Denies any recent fevers. Denies dysuria, frequency, hematuria or other urinary symptoms. Denies saddle anesthesia or bowel or bladder incontinence. Denies any weakness, numbness, or tingling. MD elicited complaint: back pain Pertinent past history: other (tumor to left lower leg) Onset (ago): day(s) Timing: constant Severity: moderate Similar Symptoms Previously: No Quality: burning Location: lumbar spine Radiation: left upper leg Exacerbating factors: movement Relieving factors: none Associated symptoms: denies other symptoms Work related injury: No Related Data Home Medications Medication Instructions Recorded Confirmed Miralax 12/10/22 Nexavar 400 mg PO DAILY 12/10/22 12/10/22 Previous Rx's Medication Instructions Recorded cyclobenzaprine 5 mg tablet 5 mg PO TID PRN muscle spasm #10 08/17/23 tabs lidocaine 5 % topical patch 1 patch topical DAILY #15 ea 08/17/23 Allergies Allergy/AdvReac Type Severity Reaction Status Date / Time No Known Allergies Allergy Verified 01/04/23 11:40 [No Known Allergies*] Review of Systems Review of Systems: As per HPI. Yes all other systems are reviewed and are negative Constitutional: Constitutional: Reports as per HPI [facility] Past Medical History Medical History (Updated 08/17/23 @ 18:52 by La Li NP) Sickle cell trait Benign tumor Surgical History Hx of section Hx of cystoscopy S/P laparoscopic cholecystectomy Social History Social History Household Members: Family Housing: Apartment Alcohol intake: current Alcohol intake frequency: holidays/special occasions only Alcohol type: hard liquor Patient Tobacco Use Status: Never used Tobacco service: No Current occupational status: unemployed Physical Exam Vital Signs: Vital Signs: Last Vital Signs Temp 98.0 F 08/17/23 16:33 Pulse 94 08/17/23 16:33 Resp 18 08/17/23 16:33 BP 107/69 08/17/23 16:33 Pulse Ox 100 08/17/23 16:33 O2 Del Method Room Air 08/17/23 16:33 BMI result Body Mass Index 23.7 Vital signs have been reviewed and appear to be correct. Blood pressure normal. Heart rate normal. Respiratory rate normal. Temperature normal. Oxygen saturation normal. Const: General: cooperative, healthy appearing and no acute distress Orientation/consciousness: oriented to person, oriented to place, oriented to time and patient oriented x3 Limitations: no limitations HEENT: Head: Yes normocephalic and Yes atraumatic Ears: external ears normal General nose exam: Normal external nose present Face and sinus: Yes face symmetric Mouth: oropharynx normal and moist mucous membranes Throat: Yes uvula midline Eyes: Pupils: Equal, round and reactive pupils present Neck: Neck: Yes normal visual inspection, Yes no meningeal signs and Yes supple Resp: Effort & Inspection: normal respiratory effort and able to speak in complete sentences Auscultation: clear to auscultation bilaterally Cardio: Rate: regular rate Rhythm: regular rhythm Heart sounds: S1 normal heart sound present and S2 normal heart sound present GI: Palpation (GI): Soft to palpation and nontender Auscultation: normoactive bowel sounds : General: Yes no CVA tenderness Back/Spine/Pelvis: Back: no CVA tenderness Thoracic/Lumbar Spine: thoracic and lumbar spine normal to inspection, thoraco-lumbar ROM normal, straight leg raise negative bilaterally, pain with thoraco-lumbar ROM, paraspinal muscle tenderness on the left in the upper thoracic and in the mid lumbar, No thoracic spinal tenderness and No lumbar spinal tenderness Pelvis: no pain with anterior-posterior compression and no pain with lateral compression Skin: General skin exam: elasticity normal and turgor normal Neuro: General: oriented to person, oriented to place, oriented to time, patient oriented x3, gait normal, tone normal, moves all extremities, Normal light touch and pain sensation, no meningeal signs, no focal motor deficits, CN's II-XI intact bilaterally and deep tendon reflexes 2+ bilaterally Cranial nerves: Yes Equal, round and reactive pupils present Cognition (Neuro): normal cognition Motor exam (neuro): 5/5 motor strength present throughout, Normal motor muscle tone present throughout and Motor abnormalities not present Sensory Exam: Normal double simultaneous stimulation for sensation Extrem: General: Yes full ROM, Yes no pedal edema and Yes no calf tenderness Psych: Mental Status: mental status grossly normal Affect: normal affect Thought process: Normal thought process present Course Course Course Narrative: This is a rapid medical exam. Deferred additional HPI, ROS, PE to primary provider. 33 yo female with history of left lung mass (non cancerous per patient but receiving once monthly chemo at [facility]), here with complaints of left lower back pain with radiation to the left thigh described as burning since yesterday. No known injury or trauma. No incontinence of urine/stool. No urinary symptoms. No fevers, chills. Will obtain UA, urine , x-ray. 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 On exam patient is awake, A+Ox3, VS WNL, afebrile, normal neurological exam without focal deficits, physical exam findings as above. Given reported symptoms and physical exam findings, initial differential includes lumbar strain, lumbar radiculopathy, osteoarthritis, spondylosis, malignancy/mass, disc herniation, UTI. Do not suspect spinal epidural abscess, cauda equina, cord compression. X-ray notable for no acute abnormalities. My interpretation is in agreement with the radiologist's interpretation. No evidence of infection on UA, negative . Will prescribe cyclobenzaprine, lidocaine patches, advised patient to follow up with PCP. Can alternate Tylenol and ibuprofen. Advised to apply ice for 10-15 minutes at a time several times daily. Return precautions discussed at bedside. Patient verbalized understanding of and agreement with plan. Differential Diagnosis Differential Diagnoses: The differential diagnosis associated with the presentation includes As per MDM. Lab Data [facility] Lab Attestation statement: I reviewed the patient's lab results. As per MDM. Labs: Lab Results 08/17/23 Range/Units 18:31 Urine Color Yellow Urine Appearance Clear Urine pH 6.5 (5.0-9.0) Ur Specific [place] 1.015 (1.005-1.025) Urine Protein Negative (Neg-Trace) mg/dL Urine Glucose (UA) Negative (Negative) mg/dL Urine Ketones Negative (Negative) mg/dL Urine Blood Negative (Negative) Urine Nitrite Negative (Negative) Ur Leukocyte Esterase Negative (Negative) Urine Test NEGATIVE (NEGATIVE) Independent Interpretation I performed an independent interpretation of an: Plain X-Ray Interpretation: No acute abnormalities Radiology Impression Discussion of test interpretation with radiology: I have reviewed the radiologist's reading. Radiologist Impression: XR/XR lumbar spine 2-3V IMPRESSION: No acute bony finding. External Record Review External record reviewed: Inpatient record, Office record and Outpatient record Prescription Management I considered prescription management with: Pain Medication and Other Discharge Plan Discharge Clinical Impression: Lumbar strain Qualifiers: Encounter type: initial encounter Qualified Code(s): S39.012A - Strain of muscle, fascia and tendon of lower back, initial encounter Patient Disposition: Home, Self-Care Instructions: Low Back Strain (ED), Acute Low Back Pain (ED), Lower Back Exercises (ED) Additional Instructions: Hoy lo evaluaron en el departamento de emergencias por dolor de espalda. Neal evaluaci?n no mostr? signos de condiciones m?dicas que requirieran intervenci?n urgente en andrea momento. Le recomendamos que use ibuprofeno o Tylenol seg?n las instrucciones del paquete cada 6 horas, seg?n sea necesario para el dolor. Si es necesario, puedes alternar estos medicamentos para drake un medicamento cada 3 horas. Por ejemplo, al mediod?a radha ibuprofeno y luego a las 15:00 horas. tome Tylenol, luego a las 6:00 p.m. drake ibuprofeno. Le bar recetado un relajante muscular que puede drake cada 8 horas seg?n sea necesario para los espasmos. Le bar recetado parches de lidoca?na t?pica al 5% que puede usar hasta por 12 horas en un per?odo de 24 horas. No aplique calor directamente sobre los parches. Programe hammad alisa de seguimiento con nael m?dico de atenci?n primaria esta semana para hammad evaluaci?n adicional de oralia s?ntomas. Regrese al departamento de emergencias si experimenta un empeoramiento del dolor de espalda, dificultad para caminar, fiebre, entumecimiento, hormigueo, incontinencia, entumecimiento u hormigueo en la kalyan, o cualquier otro s?ntoma preocupante. Prescriptions: New cyclobenzaprine 5 mg tablet 5 mg PO TID PRN (Reason: muscle spasm) Qty: 10 0RF lidocaine 5 % adhesive patch,medicated 1 patch topical DAILY Qty: 15 0RF Rx Instructions: leave on most painful area for up to 12 hrs No Action Nexavar 400 mg PO DAILY Patient Comments: medication prescribed by Kate Alexis Print Language: Malawian
[2023-08-17 18:41] LABS: Appearance Urine Clear; Color Urine Yellow; Glucose Urine UA Negative (Negative); Leukocyte Esterase Urine Negative (Negative); Nitrite Urine Negative (Negative); PH 6.5 (5.0-9.0); Specific Gravity - Urine 1.015 (1.005-1.025); Urine Blood Negative (Negative); Urine Ketones Negative (Negative); Urine Protein Negative (Neg-Trace)
[2023-08-17 18:44] LABS: UPreg QC Valid YES; Urine Pregnancy NEGATIVE (NEGATIVE)
== END 2023-08-17 19:04 | disposition home or self-care (01) ==
PROVIDERS: Nurse Practitioner Family; Emergency Provider Emergency Medicine; PCP Internal Medicine Geriatric Medicine
DX: S39.012A Strain of muscle, fascia and tendon of lower back, initial encounter (principal); X58.XXXA Exposure to other specified factors, initial encounter; Y93.9 Activity, unspecified; Y92.9 Unspecified place or not applicable; Y99.9 Unspecified external cause status; M25.552 Pain in left hip; D36.7 Benign neoplasm of other specified sites
CPT/HCPCS: 72100; 81003; 81025; 99282; 99283

== ENCOUNTER 2024-06-30 03:26 | Emergency (ER) | payer MEDICAID, SELFPAY ==
--- NOTE | 2024-06-30 | ECG_ITS ---
Test Reason : abd pain Blood Pressure : / mmHG Vent. Rate : 099 BPM Atrial Rate : 099 BPM P-R Int : 156 ms QRS Dur : 080 ms QT Int : 352 ms P-R-T Axes : 059 057 033 degrees QTc Int : 451 ms Normal sinus rhythm Normal ECG No previous ECGs available Referred By: Generic ED Physician Electronically Signed By:TAMIR CLIFFORD
--- NOTE | ~2024-06-30 | CT_ITS ---
EXAMINATION: CT ANGIOGRAM OF THE CHEST WITH AND WITHOUT CONTRAST (CT PULMONARY ANGIOGRAM FOR PE) CLINICAL INFORMATION: L flank pain, pleuritic. d-dimer upper limit malissa COMPARISON: No pertinent prior studies are available for comparison. TECHNIQUE: Prior to contrast administration, noncontrast localization images were obtained. Subsequently, multidetector volumetric imaging was performed from the thoracic inlet to the pubic symphysis through the chest, abdomen, and pelvis following the administration of 80 mL Omnipaque 350 intravenous contrast. No contrast reaction reported Sagittal, coronal, and MIP oblique sagittal (through the chest only) reformatted images were obtained on the CT workstation, uploaded to PACS, and reviewed. This CT examination was performed using dose optimization techniques as appropriate, variously including the following: *Automated exposure control *Adjustment of mA and/or kV according to patient size (this includes techniques or standardized protocols for targeted exams where dose is matched to indication/reason for exam; i.e. extremities or head) *Use of iterative reconstruction technique Total exam dose-length product: 166 mGy-cm FINDINGS: QUALITY OF STUDY/CONTRAST BOLUS: Borderline. There is similar opacification of the aorta, pulmonary veins and pulmonary arteries. PULMONARY ARTERIES: No central or segmental pulmonary emboli. THORACIC AORTA: No aneurysm or dissection. LUNG: No focal consolidation, nodules or masses. PLEURA: No pleural effusion or pneumothorax. MEDIASTINUM: Normal heart size. No pericardial effusion. No hilar or mediastinal lymphadenopathy. No evidence of septal bowing or right heart strain. CHEST WALL/AXILLA: No axillary or internal mammary lymphadenopathy. OSSEOUS STRUCTURES: No acute or suspicious osseous abnormality. VISUALIZED ABDOMEN: No significant findings in the upper abdomen. Status post cholecystectomy. CT/CT angio chest PE protocol IMPRESSION: 1. No central or segmental pulmonary emboli. 2. No acute abnormalities are demonstrated in the chest. VTE: negative. Fleischner guidelines were followed. Electronically signed by: Taco Starkey MD 06/30/2024 10:43 AM EDT
--- NOTE | ~2024-06-30 | XR_ITS ---
EXAMINATION: XR RIBS, LEFT CLINICAL INFORMATION: Pain COMPARISON: None available. TECHNIQUE: PA view of the chest and 3 views of the left ribs FINDINGS: Lungs are clear. No consolidation, pneumothorax, or pleural effusion. The cardiomediastinal silhouette and pulmonary vasculature are normal. Surgical clips in the upper abdomen. Osseous structures are unremarkable. Ribs are intact. No fractures are identified. XR/XR ribs LT min 3V w CXR1V IMPRESSION: No acute cardiopulmonary process. No displaced rib fractures. Electronically signed by: Duncan Snyder MD 06/30/2024 06:23 AM EDT
--- NOTE | ~2024-06-30 | US_ITS ---
EXAMINATION: US RETROPERITONEAL COMPLETE (RENAL) CLINICAL INFORMATION: Left-sided flank pain with hematuria. COMPARISON: CT abdomen and pelvis 10/01/2019 Ultrasound abdomen 12/09/2022 TECHNIQUE: Real-time imaging of the kidneys. FINDINGS: RIGHT KIDNEY: 9.3 x 4.3 x 4.4 cm (SAG x AP x TRV). The kidney is normal in size, contour, and echogenicity. Renal cortical thickness is normal. No calculi or focal parenchymal lesions. No hydronephrosis. LEFT KIDNEY: 9.3 x 4.8 x 3.9 cm (SAG x AP x TRV). The kidney is normal in size, contour, and echogenicity. Renal cortical thickness is normal. No calculi or focal parenchymal lesions. No hydronephrosis. US/US renal BI IMPRESSION: Normal-appearing kidneys. Electronically signed by: Taco Starkey MD 06/30/2024 11:56 AM EDT
[2024-06-30 03:48] VITALS: BP 121/81; PULSE 96; RESP 18; TEMP 36.3; O2SAT 100; BMI 25.7
[2024-06-30 04:27] LABS: Basophils Absolute Auto 0.1 X10*3/uL (0.0-0.2); Basophils Percent Auto 0.8 % (0-2); Eosinophils Absolute Auto 0.7 X10*3/uL (0.0-0.4); Eosinophils Percent Auto 7.4 % (0-4); Hematocrit 38.5 % (37.0-47.0); Imm Gran Abs Auto 0.02 X10*3/uL (0.00-0.03); Imm Gran Pct Auto 0.2 % (0.0-0.4); Lymphocytes Absolute Auto 1.7 X10*3/uL (1.2-4.9); Lymphocytes Percent Auto 17.7 % (20-40); MANUAL DIFF FLAG NO; Mean Corpuscular HGB Conc 33.8 g/dl (31.0-35.0); Mean Corpuscular Hemoglobin 24.3 pg (27.0-33.0); Mean Corpuscular Volume 72.1 fL (80.0-98.0); Mean Platelet Volume 10.7 fL (9.4-12.3); Monocytes Absolute Auto 0.9 X10*3/uL (0.1-1.2); Monocytes Percent Auto 9.3 % (2-11); Neutrophils Absolute Auto 6.3 x10*3/uL (2.0-8.3); Neutrophils Percent Auto 64.6 % (45-73); Platelet Count 259 X10*3/uL (160-400); Red Blood Count 5.34 X10*6/uL (4.20-5.50); Red Cell Distribution Width 15.6 % (11.0-16.0); White Blood Count 9.8 X10*3/uL (4.8-10.8)
[2024-06-30 04:42] LABS: Alanine Aminotransferase 17 U/L (0-31); Albumin Level 4.1 g/dL (3.5-5.0); Alkaline Phosphatase 138 U/L (39-117); Anion Gap 13 (12-20); Aspartate Amino Transferase 18 U/L (5-31); Bilirubin Total 0.6 mg/dL (0.0-1.0); Blood Urea Nitrogen 7 mg/dL (9-16); Calcium 9.4 mg/dL (8.4-10.2); Carbon Dioxide 21 mmol/L (22-29); Chloride 110 mmol/L (96-108); Creatinine Clr Calc Pharmacy 91.4; Estimated Glomerular Filt Rate > 60; Glucose Random 109 mg/dL (60-115); Lipase 23 U/L (8-78); Sodium 140 mmol/L (135-145); Total Protein 7.9 g/dL (6.5-8.0)
[2024-06-30 05:06] LABS: UPreg QC Valid YES; Urine Pregnancy NEGATIVE (NEGATIVE)
[2024-06-30 05:07] LABS: Appearance Urine Clear; Color Urine Yellow; Glucose Urine UA Negative (Negative); Leukocyte Esterase Urine Negative (Negative); Nitrite Urine Negative (Negative); PH 5.5 (5.0-9.0); Specific Gravity - Urine 1.025 (1.005-1.025); UMIC TRIGGER UACC YES; Urine Blood Large (3+) (Negative); Urine Ketones Negative (Negative); Urine Protein Negative (Neg-Trace)
[2024-06-30 05:25] LABS: Bacteria Urine None Seen (None Seen); Hyaline Casts Urine 0-2 /LPF (0-2); WBC Urine 0-5 /HPF (0-5)
[2024-06-30 05:28] LABS: Other Crystals Urine Present
[2024-06-30 06:00] VITALS: BP 116/81; PULSE 103; RESP 16; TEMP 36.9; O2SAT 100
[2024-06-30 07:45] LABS: D Dimer High Sensitivity 242 NG/ML
[2024-06-30 07:53] LABS: Troponin-I High Sensitivity < 2.7 ng/L (<3.5-17.0)
--- NOTE | 2024-06-30 08:28 | ED.GENADULT ---
HPI - General Adult General Chief complaint: Abdominal Pain Stated complaint: Side Pain Time Seen by Provider: 06/30/24 06:38 Source: patient, RN notes reviewed and old records reviewed Mode of arrival: ambulatory History of Present Illness ED Provider: Gisselle Ledesma PA-C HPI narrative: 33-year-old female with past medical history of sickle cell trait, presenting to the ED complaining of left flank/LUQ abdominal pain radiating to left shoulder x yesterday. Reports pain worse with movement, breathing, and coughing. Denies known injury, trauma or fall. Denies shortness of breath, recent travel, cigarette smoking, history of clots, pedal edema, dysuria, hematuria Related Data Home Medications ?Medication ?Instructions ?Recorded ?Confirmed Miralax 12/10/22 Nexavar 400 mg PO DAILY 12/10/22 12/10/22 Previous Rx's ?Medication ?Instructions ?Recorded cyclobenzaprine 5 mg tablet 5 mg PO TID PRN muscle spasm #10 08/17/23 tabs lidocaine 5 % topical patch 1 patch topical DAILY #15 ea 08/17/23 ketorolac 10 mg tablet 10 mg PO TID PRN pain 5 days #15 06/30/24 tabs lidocaine 5 % topical patch 1 patch topical DAILY PRN pain #30 06/30/24 (Lidoderm) ea Allergies Allergy/AdvReac Type Severity Reaction Status Date / Time No Known Allergies Allergy Verified 06/30/24 03:51 [No Known Allergies*] Review of Systems Review of Systems: Constitutional:No Fever, No Chills ENT/Mouth: No Ear Pain, No Nasal Congestion, No sore throat, No Rhinorrhea, No Swallowing Difficulty Cardiovascular: No Chest Pain, No SOB Respiratory: No Cough Gastrointestinal: No Nausea, No Vomiting, No Diarrhea, No Constipation, No Abdominal pain Genitourinary: No Dysuria, No Urinary Frequency, No Hematuria, No Urinary Incontinence/retention, + Flank Pain Musculoskeletal: No joint pain, No Myalgias, No Joint Swelling Skin: No Skin Lesions, No rash Neuro: No Weakness Yes all other systems are reviewed and are negative Constitutional: Constitutional: Reports as per [facility] Past Medical History Attestation statement: The following information was validated with the patient. Source: old records reviewed Medical History Sickle cell trait Benign tumor Surgical History S/P laparoscopic cholecystectomy Hx of cystoscopy Hx of section Social History Social History Household Members: Family Housing: Apartment Alcohol intake: never Patient Tobacco Use Status: Never used Tobacco Smoked in Last 30 Days: No Use of substances other than those prescribed or required for medical reasons: No Advance Directives: Yes Advance Directives Information Provided: Yes Advance Directives on File: No Do you have a plan to hurt others: No Plan Patient : No service: No Current occupational status: unemployed Physical Exam ED Vital Signs: Vital Signs - 24 hr 06/30/24 03:48 06/30/24 06:00 06/30/24 10:10 Temperature 97.3 F 98.4 F Pulse Rate 96 103 H 108 H Respiratory Rate 18 16 16 Blood Pressure 121/81 116/81 116/75 Pulse Oximetry 100 100 100 Oxygen Delivery Method Room Air Room Air Room Air 06/30/24 12:32 06/30/24 12:51 Temperature 98.1 F 98.1 F Pulse Rate 108 H 108 H Respiratory Rate 18 18 Blood Pressure 131/84 131/84 Pulse Oximetry 100 100 Oxygen Delivery Method Room Air Room Air BMI result Body Mass Index 25.7 Const General: cooperative, healthy appearing and no acute distress Orientation/consciousness: patient oriented x3 Limitations: no limitations HENMT Head: Yes normal to inspection and Yes atraumatic Ears: hearing grossly normal bilaterally General nose exam: Normal external nose present Face and sinus: Yes normal facial exam Eyes General: appearance normal, both eyes and all related structures EOM: EOMs intact bilaterally Neck Neck: Yes normal visual inspection and Yes no meningeal signs Chest Other: Left posterior lateral lower ribs. No ecchymosis/rash or erythema. No flail chest Chest palpation & inspection: normal inspection of the chest and no crepitus Resp Effort & Inspection: normal respiratory effort and no respiratory distress Auscultation: clear to auscultation bilaterally Cardio Rate: regular rate Heart sounds: S1 normal heart sound present and S2 normal heart sound present GI Inspection: Yes normal to inspection Palpation (GI): Soft to palpation, nontender, no guarding and not rigid General: Yes CVA tenderness on the left Back/Spine/Pelvis Back: CVA tenderness Skin Rashes: no rashes Wounds: no wounds Neuro General: patient oriented x3, tone normal and no meningeal signs Cranial nerves: Yes CN's II-XII intact bilaterally Gait exam (Neuro): Normal gait present Extrem General: Yes normal to inspection, Yes no pedal edema and Yes no calf tenderness Course Course Course Narrative: -labs reassuring. Troponin negative. -UA with blood and rbc's, noninfected -D-dimer 242 > upper limit of normal however patient tachycardic and with clinical symptoms will obtain CTA to rule out PE. XR ribs LT min 3V w CXR1V IMPRESSION: No acute cardiopulmonary process. No displaced rib fractures. CT angio chest PE protocol IMPRESSION: 1. No central or segmental pulmonary emboli. 2. No acute abnormalities are demonstrated in the chest. VTE: negative. Fleischner guidelines were followed. > will obtain renal ultrasound rule out stone 1229--US renal BI IMPRESSION: Normal-appearing kidneys. Results discussed with patient including worrisome signs and symptoms and strict return precautions, and when to return to the emergency department. They verbalized understanding and feel safe for discharge at this time. Medications Administered Discontinued Medications Generic Name Dose Route Start Last Admin Trade Name Freq PRN Reason Stop Dose Admin Iohexol 65 ml 06/30/24 09:13 06/30/24 09:14 Iohexol 350 Mg/Ml 75 Ml Infus..Btl IV 06/30/24 09:14 65 ml ONCE ONE Administration Ketorolac Tromethamine 15 mg 06/30/24 12:29 06/30/24 12:41 Ketorolac Tromethamine 15 Mg/Ml Vial IVPUSH 06/30/24 12:30 15 mg ONCE ONE Administration Lidocaine 1 patch 06/30/24 12:29 06/30/24 12:40 Lidocaine 4 % Patch Adh..Patch TRANSDERMA 06/30/24 12:30 1 patch ONCE ONE Administration Protocol Medical Decision Making Medical Decision Making MDM Narrative: 33-year-old female with past medical history of sickle cell trait, presenting to the ED complaining of left flank/LUQ abdominal pain radiating to left shoulder x yesterday. On exam mildly tachycardic, NAD, nontoxic appearing, physical exam as noted above with reproducible posterolateral lower rib tenderness and left CVAT. Abdomen soft and nontender. No pedal edema or calf tenderness. Concern for pulmonary embolism vs costochondritis vs vs pneumonia vs pneumothorax vs renal stone or pyelo. Lower suspicion for pancreatitis, cholecystitis/lithiasis. Rule out ACS although symptoms atypical. Plan: EKG, labs, CXR, D-dimer, re-evaluate Please refer to course for remaining clinical decision making, interpretation of labs/imaging results, and discussions with consultants and/or family members. Differential Diagnosis Differential Diagnoses: The differential diagnosis associated with the presentation includes As above Admission/Observation Consideration of admission/observation: Escalation of care including admission/observation considered Lab Data MDM Lab Attestation statement: I reviewed the patient's lab results. 06/30/24 04:22 06/30/24 04:22 Labs: Lab Results 06/30/24 06/30/24 06/30/24 Range/Units 04:22 05:01 07:28 WBC 9.8 (4.8-10.8) X10*3/uL RBC 5.34 (4.20-5.50) X10*6/uL Hgb 13.0 (12.0-16.0) g/dl Hct 38.5 (37.0-47.0) % MCV 72.1 L (80.0-98.0) fL MCH 24.3 L (27.0-33.0) pg MCHC 33.8 (31.0-35.0) g/dl RDW 15.6 (11.0-16.0) % Plt Count 259 (160-400) X10*3/uL MPV 10.7 (9.4-12.3) fL Immature Gran % (Auto) 0.2 (0.0-0.4) % Neut % (Auto) 64.6 (45-73) % Lymph % (Auto) 17.7 L (20-40) % Josephine % (Auto) 9.3 (2-11) % Eos % (Auto) 7.4 H (0-4) % Baso % (Auto) 0.8 (0-2) % Lymph # (Auto) 1.7 (1.2-4.9) X10*3/uL Josephine # (Auto) 0.9 (0.1-1.2) X10*3/uL Eos # (Auto) 0.7 H (0.0-0.4) X10*3/uL Baso # (Auto) 0.1 (0.0-0.2) X10*3/uL Abs Immat Gran (auto) 0.02 (0.00-0.03) X10*3/uL Absolute Neuts (auto) 6.3 (2.0-8.3) x10*3/uL Absolute Nucleated RBC 0.000 (0.0-0.012) X10*3/uL Nucleated RBC % (auto) 0.0 (0.0-0.2) /100WBC D-Dimer High Sensitivty 242 NG/ML Sodium 140 (135-145) mmol/L Potassium 4.0 (3.3-5.1) mmol/L Chloride 110 H (96-108) mmol/L Carbon Dioxide 21 L (22-29) mmol/L Anion Gap 13 (12-20) BUN 7 L (9-16) mg/dL Creatinine 0.73 (0.5-1.4) mg/dL Estim Creat Clear Calc 91.4 Estimated GFR > 60 Random Glucose 109 (60-115) mg/dL Calcium 9.4 D (8.4-10.2) mg/dL Total Bilirubin 0.6 (0.0-1.0) mg/dL AST 18 (5-31) U/L ALT 17 (0-31) U/L Alkaline Phosphatase 138 H (39-117) U/L Troponin I High Sens < 2.7 (<3.5-17.0) ng/L Total Protein 7.9 (6.5-8.0) g/dL Albumin 4.1 (3.5-5.0) g/dL Lipase 23 (8-78) U/L Urine Color Yellow Urine Appearance Clear Urine pH 5.5 (5.0-9.0) Ur Specific [place] 1.025 (1.005-1.025) Urine Protein Negative (Neg-Trace) mg/dL Urine Glucose (UA) Negative (Negative) mg/dL Urine Ketones Negative (Negative) mg/dL Urine Blood Large (3+) H (Negative) Urine Nitrite Negative (Negative) Ur Leukocyte Esterase Negative (Negative) Urine RBC 6-10 H (0-2) /HPF Urine WBC 0-5 (0-5) /HPF Ur Squamous Epith Cells 3-5 (0-2) /HPF Other Crystals Present Urine Bacteria None Seen (None Seen) Hyaline Casts 0-2 (0-2) /LPF Urine Test NEGATIVE (NEGATIVE) Independent Interpretation I performed an independent interpretation of an: EKG (My interpretation EKG normal sinus rhythm rate of 99. CO interval 156. QTC 451. No STEMI. ) and Plain X-Ray Radiology Impression Discussion of test interpretation with radiology: I have reviewed the radiologist's reading. External Record Review External record reviewed: Inpatient record, Office record, Outpatient record, Prior outpatient labs, Prior outpatient radiology, Primary care record and Outside ED record Tests considered The following testing was considered but not selected: As above Prescription Management I considered prescription management with: Pain Medication Discharge Plan Discharge Clinical Impression: Left flank pain Patient Disposition: Home, Self-Care Instructions: Flank Pain (ED) Additional Instructions: Your blood work and imaging studies are reassuring. Your urine does have blood in it. Toradol as an anti-inflammatory/pain medication, take with food Lidoderm patches or numbing patches, apply to painful area You may also take Tylenol If symptoms persist or worsen return to the emergency department Please have close follow-up with her doctor Prescriptions: New ketorolac 10 mg tablet 10 mg PO TID PRN (Reason: pain) 5 Days Qty: 15 0RF lidocaine [Lidoderm] 5 % adhesive patch,medicated 1 patch topical DAILY MDD remove after 12 hours PRN (Reason: pain) Qty: 30 0RF Rx Instructions: leave on most painful area for up to 12 hrs No Action Nexavar 400 mg PO DAILY Patient Comments: medication prescribed by Kate Alexis cyclobenzaprine 5 mg tablet 5 mg PO TID PRN (Reason: muscle spasm) Qty: 10 0RF lidocaine 5 % adhesive patch,medicated 1 patch topical DAILY Qty: 15 0RF Rx Instructions: leave on most painful area for up to 12 hrs Referrals: Physician,Unknown J [Primary Care Provider] - 3 days Interventions: ED Discharge Assessment Last Done: 06/30/24 12:51 Discharge Date/Time: 06/30/24 12:53 Print Language: Irish
[2024-06-30] MEDS: iohexoL 350 MG/ML 75 ML INFUS..BTL 65 ML IV (09:14)
[2024-06-30 10:10] VITALS: BP 116/75; PULSE 108; RESP 16; O2SAT 100
[2024-06-30 12:32] VITALS: BP 131/84; PULSE 108; RESP 18; TEMP 36.7; O2SAT 100
[2024-06-30] MEDS: Lidocaine 4 % Patch ADH..PATCH 1 PATCH TRANSDERMA (12:40)
[2024-06-30] MEDS: Ketorolac Tromethamine 15 MG/ML VIAL IVPUSH (12:41)
[2024-06-30 12:51] VITALS: BP 131/84; PULSE 108; RESP 18; TEMP 36.7; O2SAT 100
== END 2024-06-30 12:53 | disposition home or self-care (01) ==
PROVIDERS: Physician Assistant; Emergency Provider Emergency Medicine Emergency Medical Services
DX: R10.12 Left upper quadrant pain (principal); M25.512 Pain in left shoulder; R07.81 Pleurodynia; Z79.899 Other long term (current) drug therapy
CPT/HCPCS: 36415; 71101; 71275; 76775; 80053; 81001; 81025; 83690; 84484; 85025; 85379; 93005; 96374; 99284; 99285; J1885; Q9967

== ENCOUNTER 2024-10-03 11:33 | Emergency (ER) | payer MEDICAID, SELFPAY ==
--- NOTE | ~2024-10-03 | XR_ITS ---
EXAMINATION: XR CHEST CLINICAL INFORMATION: Cough. COMPARISON: CTA chest dated 06/30/2024. TECHNIQUE: 2 views of the chest were obtained. FINDINGS: The lungs are clear. The cardiomediastinal silhouette is normal in size. There is no pleural effusion or pneumothorax. No acute osseous abnormality. XR/XR chest 2V IMPRESSION: No acute cardiopulmonary findings. Electronically signed by: Jose L New MD 10/03/2024 12:06 PM [facility] [place]
--- NOTE | 2024-10-03 11:39 | ED.GENADULT ---
HPI - General Adult General Chief complaint: Upper Respiratory Symptoms Stated complaint: congested, diff breathing Time Seen by Provider: 10/03/24 11:52 Source: patient Mode of arrival: ambulatory Limitations: no limitations History of Present Illness ED Provider: Jinny Prieto NP HPI narrative: Patient is a 34-year-old female who presents emergency department for evaluation of URI symptoms including nasal congestion congestion, productive cough over the past 8 days. Earlier this week she was experiencing a fever for a single day reportedly 103.0. She has been taking amoxicillin twice daily for the past 5 days (left over from a prior prescription). Not feeling much better. Denies chills, headache, dizziness, neck pain, neck stiffness, chest pain, shortness of breath, difficulty breathing, sore throat, nausea, vomiting, abdominal pain, numbness or tingling of the extremities, genitourinary symptoms. Related Data Home Medications ?Medication ?Instructions ?Recorded ?Confirmed Miralax 12/10/22 Nexavar 400 mg PO DAILY 12/10/22 12/10/22 Previous Rx's ?Medication ?Instructions ?Recorded cyclobenzaprine 5 mg tablet 5 mg PO TID PRN muscle spasm #10 08/17/23 tabs lidocaine 5 % topical patch 1 patch topical DAILY #15 ea 08/17/23 ketorolac 10 mg tablet 10 mg PO TID PRN pain 5 days #15 06/30/24 tabs lidocaine 5 % topical patch 1 patch topical DAILY PRN pain #30 06/30/24 (Lidoderm) ea amoxicillin 875 mg-potassium 1 tab PO BID #14 tabs 10/03/24 clavulanate 125 mg tablet Allergies Allergy/AdvReac Type Severity Reaction Status Date / Time No Known Allergies Allergy Verified 10/03/24 11:40 [No Known Allergies*] Review of Systems Review of Systems: Yes all other systems are reviewed and are negative PMFSH Past Medical History Attestation statement: The following information was validated with the patient. Source: old records reviewed Medical History Sickle cell trait Benign tumor Surgical History S/P laparoscopic cholecystectomy Hx of cystoscopy Hx of section Social History Social History Household Members: Family Housing: Apartment Alcohol intake: never Patient Tobacco Use Status: Never used Tobacco Advance Directives: No Advance Directives Information Provided: No Do you have a plan to hurt others: No Plan service: No Current occupational status: unemployed Physical Exam ED Vital Signs: Vital Signs - 24 hr 10/03/24 11:40 10/03/24 12:30 Temperature 97.9 F 98.1 F Pulse Rate 92 93 Respiratory Rate 20 18 Blood Pressure 113/73 106/65 Pulse Oximetry 100 99 Oxygen Delivery Method Room Air Room Air BMI result Body Mass Index 24.9 Appearance: Alert.?Oriented to person, place and time. No acute distress.?Normal affect. Eyes: Pupils equal, round and reactive to light.? ENT: TM normal bilaterally. Pharynx normal.??Bilateral maxillary sinus tenderness upon palpation Neck: Normal inspection.? Neck supple.??No cervical adenopathy CVS: Heart sounds normal. Normal heart rate and rhythm.? Pulses normal.?? Respiratory: No respiratory distress.? Lung sounds clear to auscultation bilaterally?? Abdomen: Soft and non-tender. Normoactive bowel sounds. Skin: Skin warm and dry.? Normal skin color.? ? Extremities: No lower extremity edema.? Neuro: Moves all extremities spontaneously. Sensation intact bilaterally. No motor deficits. Ambulates with normal steady gait. Course Course Course Narrative: This is a Rapid Medical Examination (RME) performed by Rosana Walsh PA-C in triage. Full HPI, ROS, assessment and treatment plan per primary provider in the Main ED. 34 yo female hx of sickle cell trait here for eval of congestion and productive cough x8 days. reports fever on saturday. has been taking left over amoxicillin twice daily since saturday. denies sore throat. + dry cough. lungs clear. Plan: viral swabs, CXR Medical Decision Making Medical Decision Making MDM Narrative: Patient is a 34-year-old female with past medical history of sickle cell trait, presenting for evaluation of upper respiratory symptoms. COVID-19/influenza/RSV testing negative. At this time history and physical exam not consistent with ACS/PE. CXR was obtained to evaluate for consolidation or infiltrate that might suggest pneumonia and is without acute abnormality. On examination has maxillary sinus tenderness upon palpation obvious congestion, given duration of symptoms I suspect this is likely a bacterial sinusitis for which a prescription for Augmentin will be sent to her pharmacy. Well-appearing, nontoxic, afebrile, no tachycardia or tachypnea/hypoxia. Speaking clear full sentences, ambulatory with steady gait. Discussed conservative treatment including rest, hydration, Tylenol/ibuprofen as needed for fever and body aches, saline nasal spray, humidifier, [id number] cold medication. Advised to follow-up with primary care provider as needed, discussed reasons to return back to the emergency department. All questions were answered. Patient discharged home in stable condition. Differential Diagnosis Differential Diagnoses: The differential diagnosis associated with the presentation includes ( See narrative above) Admission/Observation Consideration of admission/observation: Escalation of care including admission/observation considered ( see narrative above) Lab Data MDM Lab Attestation statement: I reviewed the patient's lab results. ( see narrative above) Labs: Lab Results 10/03/24 Range/Units 11:51 Influenza Type A (PCR) NEGATIVE (Negative) Influenza Type B (PCR) NEGATIVE (Negative) RSV RNA Qual (PCR) NEGATIVE (Negative) SARS-CoV-2 RNA (RT-PCR) NEGATIVE (Negative) Independent Interpretation I performed an independent interpretation of an: Plain X-Ray (See narrative above) Radiology Impression Discussion of test interpretation with radiology: I have reviewed the radiologist's reading. Radiologist Impression: XR/XR chest 2V IMPRESSION: No acute cardiopulmonary findings. External Record Review External record reviewed: Outpatient record Prescription Management I considered prescription management with: Pain Medication ( acetaminophen/ibuprofen) and Antibiotic Discharge Plan Discharge Clinical Impression: Acute bacterial rhinosinusitis Patient Disposition: Home, Self-Care Instructions: Rhinosinusitis (ED) Additional Instructions: Testing for COVID, flu, and RSV were negative Chest x-ray did not show evidence of pneumonia Complete the entire course of antibiotics as prescribed. You may also take [id number] antihistamine such as Zyrtec, Claritin, to help alleviate some of this congestion. Saline sinus rinses can be helpful as well, humidified air. Follow-up with primary care doctor. Prescriptions: New amoxicillin-pot clavulanate 875-125 mg tablet 1 tab PO BID Qty: 14 0RF No Action Nexavar 400 mg PO DAILY Patient Comments: medication prescribed by Dana_Faber Miralax cyclobenzaprine 5 mg tablet 5 mg PO TID PRN (Reason: muscle spasm) Qty: 10 0RF lidocaine 5 % adhesive patch,medicated 1 patch topical DAILY Qty: 15 0RF Rx Instructions: leave on most painful area for up to 12 hrs ketorolac 10 mg tablet 10 mg PO TID PRN (Reason: pain) 5 Days Qty: 15 0RF lidocaine [Lidoderm] 5 % adhesive patch,medicated 1 patch topical DAILY MDD remove after 12 hours PRN (Reason: pain) Qty: 30 0RF Rx Instructions: leave on most painful area for up to 12 hrs Referrals: [facility] [Primary Care Provider] - Print Language: Mauritian
[2024-10-03 11:40] VITALS: BP 113/73; PULSE 92; RESP 20; TEMP 36.6; O2SAT 100; BMI 24.9
[2024-10-03 12:30] VITALS: BP 106/65; PULSE 93; RESP 18; TEMP 36.7; O2SAT 99
[2024-10-03 12:33] LABS: Influenza A PCR NEGATIVE (Negative); Influenza B PCR NEGATIVE (Negative); Resp Syncy Virus RNA Qual PCR NEGATIVE (Negative); SARS COV2 PCR INHOUSE NEGATIVE (Negative)
[2024-10-03 12:46] VITALS: BP 106/65; PULSE 93; RESP 18; TEMP 36.7; O2SAT 99
== END 2024-10-03 12:47 | disposition home or self-care (01) ==
PROVIDERS: Physician Assistant Medical; Emergency Provider Emergency Medicine
DX: J01.00 Acute maxillary sinusitis, unspecified (principal); Z03.818 Encounter for observation for suspected exposure to other biological agents ruled out; R05.9 Cough, unspecified
CPT/HCPCS: 0241U; 71046; 99283

== ENCOUNTER 2025-07-02 12:35 | Emergency (ER) | payer MEDICAID, SELFPAY ==
--- NOTE | ~2025-07-02 | CT_ITS ---
CLINICAL HISTORY: dry cough tachycardic r o PE --- Additional Notes or Special Instructions: elevated dimer CTA chest with 3-D postprocessing Comparison: CR/SR - XR CHEST 2 VIEWS - 07/02/25 13:[address]/VA/SR - CT CHEST ANGIOGRAPHY WITH IV CONTRAST - 06/30/24 08:58 EDT Findings: Study quality is adequate for the diagnosis of pulmonary embolism. No pulmonary embolism. Heart size within normal limits. RV/LV ratio is normal. No calcified coronary artery disease. No aortic dissection or aneurysm. No calcified atherosclerotic disease. No lymphadenopathy. No pulmonary pathology. No pneumothorax or pleural effusion. No acute osseous or soft tissue abnormality. No acute pathology in the imaged portion of the upper abdomen. Status post cholecystectomy. Impression: No pulmonary embolism or other acute findings. This document has been electronically signed by: Leann Diop MD on 07/02/2025 20:15:31
--- NOTE | ~2025-07-02 | XR_ITS ---
EXAMINATION: XR CHEST CLINICAL INFORMATION: cough COMPARISON: 10/03/2024. TECHNIQUE: 2 views of the chest were obtained. FINDINGS: The cardiac, hilar, and mediastinal contours are normal. The lungs are clear bilaterally. There is no pneumothorax or pleural effusion. There is no focal osseous or soft tissue abnormality. XR/XR chest 2V IMPRESSION: Normal chest. Electronically signed by: Jeff Veras MD 07/02/2025 01:11 PM EDT
[2025-07-02 12:48] VITALS: BP 105/70; PULSE 119; RESP 18; TEMP 36.7; O2SAT 97; BMI 27.9
--- NOTE | 2025-07-02 12:49 | ED.GENADULT ---
HPI - General Adult General Chief complaint: Upper Respiratory Symptoms Stated complaint: Coughing, tighten of chest Time Seen by Provider: 07/02/25 13:09 Source: patient and newspaper or periodical editor (mauritian) Mode of arrival: ambulatory Limitations: language barrier (mauritian) History of Present Illness ED Provider: MADELAINE BAILON PA-C HPI narrative: 34-year-old female presents to the ED today for evaluation of chest tightness since yesterday. She reports associated dry cough. No sputum production. Denies known sick contacts. Denies documented fever. Denies known sick contacts. Denies hx of asthma. Related Data Home Medications ?Medication ?Instructions ?Recorded ?Confirmed Miralax 12/10/22 Nexavar 400 mg PO DAILY 12/10/22 12/10/22 Previous Rx's ?Medication ?Instructions ?Recorded cyclobenzaprine 5 mg tablet 5 mg PO TID PRN muscle spasm #10 08/17/23 tabs lidocaine 5 % topical patch 1 patch topical DAILY #15 ea 08/17/23 ketorolac 10 mg tablet 10 mg PO TID PRN pain 5 days #15 06/30/24 tabs lidocaine 5 % topical patch 1 patch topical DAILY PRN pain #30 06/30/24 (Lidoderm) ea amoxicillin 875 mg-potassium 1 tab PO BID #14 tabs 10/03/24 clavulanate 125 mg tablet albuterol sulfate 90 mcg/actuation 2 puff inhalation Q4-6H PRN 07/02/25 aerosol inhaler (Ventolin HFA) bronchospasm #8.5 grams benzonatate 100 mg capsule 100 mg PO BID PRN cough #14 caps 07/03/25 prednisone 20 mg tablet 40 mg (2 x 20 mg) PO DAILY 5 days 07/03/25 #10 tabs Allergies Allergy/AdvReac Type Severity Reaction Status Date / Time No Known Allergies (No Known Allergy Verified 07/02/25 12:56 Allergies*) Review of Systems Review of Systems: Yes all other systems are reviewed and are negative PMFSH Past Medical History Attestation statement: The following information was validated with the patient. Source: old records reviewed and nursing notes reviewed Medical History Sickle cell trait Benign tumor Surgical History S/P laparoscopic cholecystectomy Hx of cystoscopy Hx of section Social History Social History Household Members: Family Housing: Apartment Alcohol intake: never Patient Tobacco Use Status: Never used Tobacco Advance Directives: No Advance Directives Information Provided: Yes Do you have a plan to hurt others: No Plan service: No Current occupational status: unemployed Physical Exam ED Vital Signs: Vital Signs - 24 hr 07/02/25 19:16 07/02/25 19:34 07/02/25 19:34 Temperature 98.8 F 98.6 F Pulse Rate 121 H 116 H Respiratory Rate 16 18 Blood Pressure 116/76 117/75 Pulse Oximetry 97 97 97 Oxygen Delivery Method Room Air Room Air Room Air 07/02/25 20:33 Temperature 98.6 F Pulse Rate 116 H Respiratory Rate 18 Blood Pressure 117/75 Pulse Oximetry 97 Oxygen Delivery Method Room Air BMI result Body Mass Index 27.9 tachycardic, vitals are otherwise wnl General: Well appearing, in no acute distress. Skin: Warm, dry, intact. No rashes or lesions. Head: Normocephalic, atraumatic. EENT: Hearing is intact b/l. Conjunctiva clear. Sclera is anicteric. PERRLA. EOM intact. Moist mucous membranes.? Cardiac: Chest wall symmetric. tachycardic Lungs: Normal respiratory effort without accessory muscle use, expiratory wheezes throughout, no tripoding. Ext: Upper and lower extremities atraumatic, without tenderness, deformity, swelling or erythema Neuro: AOx3. Normal speech. Ambulating with steady gait Course Course Course Narrative: RME, this is a rapid medical exam performed by Wally Jeffers please refer to primary provider for complete H&P- 34-year-old female presents for evaluation cough, congestion, and wheezing for the last few days. plan for viral swabs and chest x-ray Reevaluation(s) Reevaluation #1: CBC showing slight leukocytosis to 11.2 with left shift. H&H stable. chemistry without acute electrolyte abnormality requiring intervention. No GO. normal liver function. troponin undetectable. ekg showing sinus tachycardia to 123 bpm, no acute ischemic changes or st elevations. beta quant undetectable - not . covid and flu negative. chest xray without infiltrate or consolidation. > initial concern for vital URI - bronch protocol and PO prednisone ordered > patient consistently tachycardic to 120s even prior to bronch treatment. Placed on night monitor. On review of prior visits, patient appears to be tachycardic at baseline however never quite this elevated. Patient tells me that she returned from a trip to [place] 1 week ago. The flight was approximately 4 hours long. she has no calf tenderness b/l, no chest pain and no shortness of breath. Given persistent tachycardia and recent travel ([facility] 2), I have suspicion for PE. D-dimer ordered which is elevated to 728. CTA chest ordered to further assess for PE. Discussed with patient who is agreeable. > patient stable at this time 1800 -- RN attempted to establish line x3 without success. Discussed with oncoming JHOANA Salinas who will attempt to establish US guided line. patient has been signed out to [facility] pending scan and disposition. Reevaluation #2: I Judith Ahuja PA-C have accepted care of the patient at signed out pending imaging and final disposition . The patient has an occasional inspiratory wheeze on exam posterior santos, no expiratory wheezes. She denies chest tightness or shortness of breath at this time. She received steroid. CTA pending. CTA chest:Findings: Study quality is adequate for the diagnosis of pulmonary embolism. No pulmonary embolism. Heart size within normal limits. RV/LV ratio is normal. No calcified coronary artery disease. No aortic dissection or aneurysm. No calcified atherosclerotic disease. No lymphadenopathy. No pulmonary pathology. No pneumothorax or pleural effusion. No acute osseous or soft tissue abnormality. No acute pathology in the imaged portion of the upper abdomen. Status post cholecystectomy. Impression: No pulmonary embolism or other acute findings. Medications Administered Discontinued Medications Generic Name Dose Route Start Last Admin Trade Name Freq PRN Reason Stop Dose Admin Acetaminophen 975 mg 07/02/25 15:09 07/02/25 16:28 Acetaminophen 325 Mg Tablet PO 07/02/25 15:10 975 mg ONCE ONE Administration Iohexol 100 ml 07/02/25 18:33 07/02/25 18:33 Iohexol 350 Mg/Ml 100 Ml Infus..Btl IV 07/02/25 18:34 65 ml ONCE ONE Administration Prednisone 40 mg 07/02/25 13:49 07/02/25 14:08 Prednisone 20 Mg Tablet PO 07/02/25 13:50 40 mg ONCE ONE Administration Procedures Procedure Narrative Procedure Narrative: Stated IV 20 gauge 1.16 in IV placed in left upper extremity. Adequate blood return, flushes well secured with Tegaderm performed by Judith Ahuja PA-C Medical Decision Making Medical Decision Making [facility] Narrative: 34-year-old female presents to the ED today for evaluation of chest tightness since yesterday. On arrival, tachycardic to 119, afebrile. she is generally well appearing and in NAD. on exam, normal respiratory effort without accessory muscle use, expiratory wheezes throughout, no tripoding. no calf tenderness b/l, no pitting edema. Differential diagnosis includes upper respiratory infection, bronchitis, pneumonia, pulmonary embolism, asthma, sinusitis, viral syndrome, arrhythmia, ACS Plan for screening labs, trop, ekg, cxr, breathing treatment Differential Diagnosis Differential Diagnoses: The differential diagnosis associated with the presentation includes as above. Admission/Observation not indicated Lab Data [facility] Lab Attestation statement: I reviewed the patient's lab results. as above. 07/02/25 14:38 07/02/25 14:38 Labs: Lab Results 07/02/25 07/02/25 07/02/25 Range/Units 13:01 14:38 16:38 WBC 11.2 H (4.8-10.8) X10*3/uL RBC 5.20 (4.20-5.50) X10*6/uL Hgb 13.0 (12.0-16.0) g/dl Hct 37.5 (37.0-47.0) % MCV 72.1 L (80.0-98.0) fL MCH 25.0 L (27.0-33.0) pg MCHC 34.7 (31.0-35.0) g/dl RDW 14.6 (11.0-16.0) % Plt Count 277 (160-400) X10*3/uL MPV 10.4 (9.4-12.3) fL Immature Gran % (Auto) 0.4 (0.0-0.4) % Neut % (Auto) 81.0 H (45-73) % Lymph % (Auto) 7.3 L (20-40) % [place] % (Auto) 8.3 (2-11) % Eos % (Auto) 2.6 (0-4) % Baso % (Auto) 0.4 (0-2) % Lymph # (Auto) 0.8 L (1.2-4.9) X10*3/uL [place] # (Auto) 0.9 (0.1-1.2) X10*3/uL Eos # (Auto) 0.3 (0.0-0.4) X10*3/uL Baso # (Auto) 0.1 (0.0-0.2) X10*3/uL Abs Immat Gran (auto) 0.04 H (0.00-0.03) X10*3/uL Absolute Neuts (auto) 9.0 H (2.0-8.3) x10*3/uL Absolute Nucleated RBC 0.000 (0.0-0.012) X10*3/uL Nucleated RBC % (auto) 0.0 (0.0-0.2) /100WBC D-Dimer High Sensitivty 728 NG/ML Sodium 140 (135-145) mmol/L Potassium 3.4 (3.3-5.1) mmol/L Chloride 109 H (96-108) mmol/L Carbon Dioxide 23 (22-29) mmol/L Anion Gap 11 L (12-20) BUN 10 (9-16) mg/dL Creatinine 0.72 (0.5-1.4) mg/dL Estim Creat Clear Calc 99.4 Estimated GFR > 60 Random Glucose 90 (60-115) mg/dL Calcium 9.1 (8.4-10.2) mg/dL Magnesium 1.9 (1.6-2.6) mg/dL Total Bilirubin 0.5 (0.0-1.0) mg/dL AST 21 (5-31) U/L ALT 14 (0-31) U/L Alkaline Phosphatase 115 (39-117) U/L Troponin I High Sens < 2.7 (<3.5-17.0) ng/L Total Protein 7.6 (6.5-8.0) g/dL Albumin 4.2 (3.5-5.0) g/dL Beta HCG, Quant < 2 mIU/mL COVID-19 (NII) Negative (Negative) COVID-19 Clin Com See Note Influenza Type A (YESENIA) Negative (Negative) Influenza Type B (YESENIA) Negative (Negative) Influenza A & B Note See Note Independent Interpretation I performed an independent interpretation of an: EKG, Plain X-Ray and CT Scan Interpretation: EKG showing sinus tachycardia, rate of 123 beats per minute, no acute ischemic changes or ST elevations cxr without infiltrate or consolidation cta chest without PE Radiology Impression Discussion of test interpretation with radiology: I have reviewed the radiologist's reading. Radiologist Impression: EXAMINATION: XR CHEST CLINICAL INFORMATION: cough COMPARISON: 10/03/2024. TECHNIQUE: 2 views of the chest were obtained. FINDINGS: The cardiac, hilar, and mediastinal contours are normal. The lungs are clear bilaterally. There is no pneumothorax or pleural effusion. There is no focal osseous or soft tissue abnormality. XR/XR chest 2V IMPRESSION: Normal chest. Electronically signed by: Jeff Veras MD 07/02/2025 01:11 PM EDT RP CTA chest with 3-D postprocessing Comparison: CR/SR - XR CHEST 2 VIEWS - 07/02/25 13:[address]/NM/SR - CT CHEST ANGIOGRAPHY WITH IV CONTRAST - 06/30/24 08:58 EDT Findings: Study quality is adequate for the diagnosis of pulmonary embolism. No pulmonary embolism. Heart size within normal limits. RV/LV ratio is normal. No calcified coronary artery disease. No aortic dissection or aneurysm. No calcified atherosclerotic disease. No lymphadenopathy. No pulmonary pathology. No pneumothorax or pleural effusion. No acute osseous or soft tissue abnormality. No acute pathology in the imaged portion of the upper abdomen. Status post cholecystectomy. Impression: No pulmonary embolism or other acute findings. This document has been electronically signed by: Leann Diop MD on 07/02/2025 20:15:31 Independent Historian Clinical information obtained from an independent historian. History obtained from or confirmed by: Spouse External Record Review External record reviewed: Inpatient record Prescription Management I considered prescription management with: Other (Prednisone) Social Determinants Patient?s care significantly limited by Social Determinants of Health including: Other Social Determinant of Health Critical Care Time Critical Care Time Critical Care Time: No Discharge Plan Discharge Clinical Impression: Acute viral syndrome, Acute bronchospasm Patient Disposition: Home, Self-Care Instructions: Viral Syndrome (ED), Bronchospasm (ED) Additional Instructions: All of your screening labs were normal, you were tested for influenza RSV and COVID, the viral panel was negative. The chest x-ray was clear. The CT of the chest was normal as well you do not have pneumonia, you do not have bronchitis, you do not have a clot in the lung. We are treating you for your bronchospasm type cough that is likely induced by yet another virus has been circulating within the community. Use the inhaler as needed for cough and wheezing. Take the steroid as directed. Use the benzonatate capsules as needed for cough. Follow up with your primary care provider within the next few weeks for a recheck. Prescriptions: New albuterol sulfate [Ventolin HFA] 90 mcg/actuation HFA aerosol inhaler 2 puff inhalation Q4-6H PRN (Reason: bronchospasm) Qty: 8.5 0RF prednisone 20 mg tablet 40 mg PO DAILY 5 Days Qty: 10 0RF benzonatate 100 mg capsule 100 mg PO BID PRN (Reason: cough) Qty: 14 0RF No Action Nexavar 400 mg PO DAILY Patient Comments: medication prescribed by Kate Alexis cyclobenzaprine 5 mg tablet 5 mg PO TID PRN (Reason: muscle spasm) Qty: 10 0RF lidocaine 5 % adhesive patch,medicated 1 patch topical DAILY Qty: 15 0RF Rx Instructions: leave on most painful area for up to 12 hrs ketorolac 10 mg tablet 10 mg PO TID PRN (Reason: pain) 5 Days Qty: 15 0RF lidocaine [Lidoderm] 5 % adhesive patch,medicated 1 patch topical DAILY MDD remove after 12 hours PRN (Reason: pain) Qty: 30 0RF Rx Instructions: leave on most painful area for up to 12 hrs amoxicillin-pot clavulanate 875-125 mg tablet 1 tab PO BID Qty: 14 0RF Referrals: [facility] [Primary Care Provider, Medical] Interventions: ED Discharge Assessment Last Done: 07/02/25 20:33 Discharge Date/Time: 07/02/25 20:33 Print Language: Romansh
[2025-07-02 13:21] LABS: COVID-19 Test Negative (Negative); IDNOW Serial# 55D5AD1C; IDNOW Serial# 58CA691E; Influenza B2 Negative (Negative)
--- OUTSIDE RECORDS SUMMARY | 2025-07-02 13:44 | XMS_ITS | Encounter Summary ---
Author Organization Formerly [facility] Address [address] [place] [id number] Phone Care Team Providers Care Usability Strategist Name Role Phone Name, Luis Eduardo NÚÑEZ Primary Care Provider [phone] Taryn De La Garza Unavailable [phone] Yanira Saez RN Unavailable May Howard RN Unavailable [email or web address] Bell Small MD Unavailable [phone] Priya Dee RN Unavailable [phone] Chaya Gonzales PROCUREMENT ANALYST Unavailable [phone] Encounter Details Date Type Department Care Team (Late st Contact Info) Description 01/09/2023 Procedure Pass [facility] [address] [address] Social History Tobacco Use Types Packs/Day Years Used Date Smoking Tobacco: Never Smokeless Tobacco: Never Alcohol Use Standard Drinks/Week Comments Not Currently 0 (1 standard drink = 0.6 oz pur e alcohol) Comments No Sex and Gender Information Value Date Recorded Sex Assigned at Not on file Legal Sex Female 1:02 PM EDT Gender Identity Not on file Sexual Orientation Not on file documented as of this encounter Plan of Treatment Not on file documented as of this encounter Visit Diagnoses Not on filedocumented in this encounter Care Teams Usability Strategist Relationship Specialty Start Date End Date Name, MD Luis Eduardo [address] [place] [id number] PCP - General Geriatric Psychiatry 03/29/21 Taryn De La Garza, [facility] [address] [place] [address] [email or web address] [facility] 08/09/20 02/02/24 Yanira Saez, AVRIL [address] [place] [address] [email or web address] 08/19/20 May Howard RN [address] [place] [phone] [email or web address] 03/31/21 Bell Small MD [address] [place] [phone] [email or web address] 01/03/22 Priya Dee RN [address] [place] [address] [email or web address] Infusion Nurse 08/07/23 Chaya Gonzales, [address] [address] [email or web address] Manager [facility] 02/03/24 03/31/24 documented as of this encounter Additional Source Comments The information contained in this document represents components of the legal health record. It is not the complete legal health record.[facility]
--- OUTSIDE RECORDS SUMMARY | 2025-07-02 13:44 | XMS_ITS | Encounter Summary ---
Author Organization [employer] Address [address] [facility] 7t [place] [address] Care Team Providers Care Photographic Process Screen Maker Name Role Phone Name, Luis Eduardo NÚÑEZ Primary Care Provider Encounter Details Date Type Department Care Team ([facility] st Contact Info) Description 07/02/2025 Orders Only [facility] External Provider, [facility] Social History Tobacco Use Types Packs/Day Years Used Date Smoking Tobacco: Never Smokeless Tobacco: Never Alcohol Use Standard Drinks/Week Comments Never 0 (1 standard drink = 0.6 oz pur e alcohol) Depression Answer Date Recorded Patient Health Questionnaire-9 Score 0 01/21/2023 Housing Stability Answer Date Recorded What is your housing situation today? I have rudy alves 10/27/[address] you li ve. Do you have problems with any of the following? None of the above 10/27/2024 Food Insecurity Answer Date Recorded Within the past 12 months, y ou worried that your food would run out before you got money to buy more: Never True 10/27/2024 Within the past 12 months,th e food you bought just didn't last and you didn't have enough money to get more: Never True Transportation Answer Date Recorded In the past 12 months, has l ack of transportation kept you from medical appts, meetings, work or from getting things needed for daily living? No 10/27/2024 Utilities Answer Date Recorded In the past 12 months, has t he electric, gas, oil or water company threatened to shut off services in your home? No 10/27/2024 Depression Answer Date Recorded Patient Health Questionnaire-2 Score 0 01/21/2023 Internet Access Answer Date Recorded Internet Access Q1 Yes 10/27/2024 Internet Access Q2 Not on file 10/27/2024 Comments Unknown Sex and Gender Information Value Date Recorded Sex Assigned at Female 09/03/2022 10:32 AM EDT Legal Sex Female 10:32 AM EDT Gender Identity Female 09/03/2022 10:32 AM EDT Sexual Orientation Straight 09/03/2022 10 :32 AM EDT documented as of this encounter Plan of Treatment Upcoming Encounters Date Type Department Care Team (Late st Contact Info) Description 07/09/2025 2:45 PM EDT Office Visit [facility] [address] [place] [address] Name, MD Luis Eduardo [address] [place] [address] documented as of this encounter Procedures Procedure Name Priority Date/Time Associated Diagnosis Comments INFLUENZA A B2 ID NOW ([facility]) Routine 07/02/2025 1:01 PM EDT COVID-19 ID NOW ([facility]) Routine 07/02/2025 1:01 PM EDT XR CHEST 2 VIEWS Routine 07/02/2025 12:0 8 PM EDT documented in this encounter Results * Influenza A B2 ID NOW ([facility]) (07/02/2025 1:01 PM EDT) IDNOW SERIAL# [id number] [facility] Influenza A Negative Negative [facility] Influenza B2 Negative Negative [facility] Influenza A B2 Note See Note [facility] Comment:The [facility] ID NOW In fluenza A B2 test is used for thequalitative detection of influenza A and B from patientswith signs and symptoms of respiratory infection.Negative results do not preclude influenza virus infectionand should not be used as the sole basis for diagnosis,treatment or other patient management decisions.There is a risk of false negative results due to thepresence of variants in the viral targets of the assay, lowlevels of virus in the specimen and co- infection withRespiratory Syncytial Virus. 07/02/2025 1:01 PM EDT 07/02/2025 1:03 PM EDT us Generic External Data Provider LAB MICROBIOLOGY - GENERAL ORDERABLES Final Result Performing Organization Address [facility] Co de Phone Number [facility] [address] [place] [address] [phone] * COVID-19 ID NOW ([facility]) (07/02/2025 1:01 PM EDT) IDNOW SERIAL# [id number] [facility] COVID-19 TEST Negative Negative [facility] COVID-19 NOTE See Note [facility] Comment: Results are for the identification of SARS-CoV2 RNA. TheSARS-CoV2 RNA is generally detectable in respiratory samplesduring the acute phase of infection. Positive results areindicative of the presence of SARS-CoV-2 RNA; clinicalcorrelation with patient history and other diagnosticinformation is necessary to determine patient infectionstatus. Positive results do not rule out bacterial infectionor co- infection with other viruses.Testing facilities within the [facility] and itsterritories are required to report all positive results tothe appropriate public health authorities.Negative results should be treated as presumptive and, ifinconsistent with clinical signs and symptoms or necessaryfor patient management, should be tested with differentauthorized or cleared molecular tests. Negative results donot preclude SARS-CoV2 RNA infection and should not be usedas the sole basis for patient management decisions. Negativeresults should be considered in the context of a patient'srecent exposures, history and the presence of clinical signsand symptoms consistent with COVID-19.This test has been authorized by the FDA under an EmergencyUse Authorization (EUA) for use by authorized laboratories.Testing performed on the Chambers ID NOW utilizing NAAT. 07/02/2025 1:01 PM EDT 07/02/2025 1:03 PM EDT us Generic External Data Provider LAB MOLECULAR KYRA GNOSTICS ORDERABLES Final Result Performing Organization Address City/[facility]/ZIP Co de Phone Number [facility] [address] [place] [phone] * XR Chest 2 Views (07/02/2025 12:08 PM EDT) Anatomical Region Laterality Modality Chest Radiographic Amy ging 07/02/2025 12:0 8 PM EDT Narrative 07/02/2025 1:14 PM EDT [address] [address] XRay Report Signed Patient: Roxanne Ca MR#: [id number] 5 : 1990 Acct:[id number] Age/Sex: 34 / F ADM Date: 07/02/25 Loc: .ED Attending Dr: Ordering Physician: Steve Jeffers Date of Service: 07/02/25 Procedure(s): XR chest 2V Accession Number(s): [id number] cc: [facility]; Steve Jeffers EXAMINATION: XR CHEST CLINICAL INFORMATION: cough COMPARISON: 10/03/2024. TECHNIQUE: 2 views of the chest were obtained. FINDINGS: The cardiac, hilar, and mediastinal contours are normal. The lungs are clear bilaterally. There is no pneumothorax or pleural effusion. There is no focal osseous or soft tissue abnormality. XR/XR chest 2V IMPRESSION: Normal chest. Electronically signed by: Jeff Veras MD 07/02/2025 01:11 PM EDT Dictated By: Jeff Veras MD Signed By: <Electronically signed by Jeff Veras MD in OV> 07/02/25 1311 DD/ 1208 TD/TT: 07/02/25 1305 Clinical Laboratory Science Professor: Procedure Note Donotuseinterpreter, Image - 07/02/[address] [address] XRay Report Signed Patient: Florencio CaR#: [id number] 5 : 1990Acct:[id number] Age/Sex: 34 / FADM Date: 07/02/25 Loc: HO.ED Attending Dr: Ordering Physician: Steve Jeffers Date of Service: 07/02/25 Procedure(s): XR chest 2V Accession Number(s): [id number] cc: [facility]; Steve Jeffers EXAMINATION: XR CHEST CLINICAL INFORMATION: cough COMPARISON: 10/03/2024. TECHNIQUE: 2 views of the chest were obtained. FINDINGS: The cardiac, hilar, and mediastinal contours are normal. The lungs are clear bilaterally. There is no pneumothorax or pleural effusion. There is no focal osseous or soft tissue abnormality. XR/XR chest 2V IMPRESSION: Normal chest. Electronically signed by: Jeff Veras MD 07/02/2025 01:11 PM EDT RP Dictated By: Jeff Veras MD Signed By: <Electronically signed by Jeff Veras MD in OV> 07/02/25 1311 DD/ 1208 TD/TT: 07/02/25 1305 Clinical Laboratory Science Professor: [facility] External Provider IMG XR PROCEDURES Edited Result - Final documented in this encounter Visit Diagnoses Not on filedocumented in this encounter Additional Health Concerns Assessment Noted Time PHQ-9 Depression Total Score: 0 01/22/20 23 1:57 PM EDT documented as of this encounter Care Teams Photographic Process Screen Maker Relationship Specialty Start Date End Date Name, MD Luis Eduardo [address] [place] [address] PCP - General Family Medicine 11/04/18 documented as of this encounter
--- OUTSIDE RECORDS SUMMARY | 2025-07-02 13:44 | XMS_ITS | Encounter Summary ---
Author Organization [facility] Address [address] [facility] [address] [place] [address] Phone Care Team Providers Care Reconnaissance Man Name Role Phone Name, Luis Eduardo NÚÑEZ Primary Care Provider [phone] Taryn De La Garza Unavailable [phone] Yanira Saez RN Unavailable May Howard RN Unavailable JOE [email or web address] Bell Small MD Unavailable [phone] Priya Dee RN Unavailable [phone] Chaya Gonzales Unavailable [phone] Encounter Details Date Type Department Care Team (Late st Contact Info) Description 07/24/2023 Procedure Pass [facility] Echocardiography [address] [place] [address] Social History Tobacco Use Types Packs/Day Years Used Date Smoking Tobacco: Never Smokeless Tobacco: Never Alcohol Use Standard Drinks/Week Comments Not Currently 0 (1 standard drink = 0.6 oz pur e alcohol) Education Answer Date Recorded Are you interested in more education? Not on abdoulaye e 03/01/2023 Are you concerned about learning? Not on file 03/01/2023 No 03/01/2023 No 03/01/2023 Digital Access Answer Date Recorded No 04/02/2023 No 04/02/2023 Reliable internet access at home? Not on file 04/02/2023 Device with a working camera? Not on file Comments No Sex and Gender Information Value Date Recorded Sex Assigned at Not on file Legal Sex Female 1:02 PM EDT Gender Identity Not on file Sexual Orientation Not on file documented as of this encounter Plan of Treatment Not on file documented as of this encounter Visit Diagnoses Not on filedocumented in this encounter Care Teams Reconnaissance Man Relationship Specialty Start Date End Date Name, MD Luis Eduardo [address] [place] [address] PCP - General Geriatric Psychiatry 03/29/21 Taryn De La Garza, [facility] [address] [place] [address] [email or web address] Switchgear Repairer Oncology 08/09/20 02/02/24 Yanira Saez RN [address] [place] [address] EDGARDO@[email or web address] Nurse Navigator 08/19/20 May Howard RN [address] [place] [address] [email or web address] Nurse Navigator 03/31/21 Bell Small MD [address] [place] [address] Neda@[email or web address] Medical Oncology 01/03/22 Priya Dee RN [address] [place] [address] BRAYAN@[facility] Primary Infusion Nurse 08/07/23 Chaya Gonzales, [address] [address] [email or web address] Switchgear Repairer Oncology 02/03/24 03/31/24 documented as of this encounter Additional Source Comments The information contained in this document represents components of the legal health record. It is not the complete legal health record.[facility]
--- OUTSIDE RECORDS SUMMARY | 2025-07-02 13:44 | XMS_ITS | Encounter Summary ---
Author Organization [employer] Address [address] [facility] 7 [place] [address] Care Team Providers Care Digital Production Operator Name Role Phone Name, Luis Eduardo NÚÑEZ Primary Care Provider [phone] Reason for Visit * Reason Comments Pre-visit Planning SDOH was already com pleted Encounter Details Date Type Department Care Team (Late st Contact Info) Description 07/01/2025 Patient Outreach [facility] [address] [place], [place] [phone] Name, MD Luis Eduardo [address] [place] [address] Pre-visit Planning (SDOH was already completed) Social History Tobacco Use Types Packs/Day Years [...] AM EDT documented as of this encounter Progress Notes * Maria Dolores Wyman - 07/01/2025 3:42 PM EDT CC Maria Dolores Fang placed successful outbound call to patient for pre-visit planning. Patient name and confirmed. Patient confirms appt date and time, and has transportation arrangements. Biggest concern for appointment at this time is no concerns. Appropriate screenings completed in anticipation ofappointment. documented in this encounter Plan of Treatment Upcoming Encounters Date Type Department Care Team (Late st Contact Info) Description 07/09/2025 2:45 PM EDT Office Visit [facility] [address] [place] [address] NameLuis Eduardo MD [address] [place] [address] documented as of this encounter Visit Diagnoses Not on filedocumented in this encounter Additional Health Concerns Assessment Noted Time PHQ-9 Depression Total Score: 0 01/22/20 23 1:57 PM EDT documented as of this encounter Care Teams Digital Production Operator Relationship Specialty Start Date End Date Luis Eduardo Deleon MD [address] [place] [address] PCP - General Family Medicine 11/04/18 documented as of this encounter
--- OUTSIDE RECORDS SUMMARY | 2025-07-02 13:44 | XMS_ITS | Encounter Summary ---
Author Organization [facility] Address [address] [facility] [address] [place] [address] Phone Care Team Providers Care Electronics Utility Worker Name Role Phone Name, Luis Eduardo NÚÑEZ Primary Care Provider [phone] Taryn De La Garza Unavailable [phone] Yanira Saez RN Unavailable May Howard RN Unavailable JOE [email or web address] Bell Small MD Unavailable [phone] Priya Dee RN Unavailable [phone] Chaya Gonzales Unavailable [phone] Encounter Details Date Type Department Care Team (Late st Contact Info) Description 08/07/2023 Procedure Pass [facility] Imaging Department, [facility] Cancer [place], MRI [address] [address] Social History Tobacco Use Types Packs/Day Years [...] with a working camera? Not on file Intimate Partner Violence Answer Date R ecorded Are you denied basic needs s uch as food, clothing, or medical care? No 08/07/2023 In the past 12 months have y ou been in a relationship with a person who hurts, threatens, or tries to control you? No 08/07/2023 Are you denied basic needs s uch as food, clothing, or medical care? No 08/07/2023 In the past 12 months have y ou been in a relationship with a person who hurts, threatens, or tries to control you? No 08/07/2023 Comments No Sex and Gender Information Value Date Recorded Sex Assigned at Not on file Legal Sex Female 1:02 PM EDT Gender Identity Not on file Sexual Orientation Not on file documented as of this encounter Plan of Treatment Not on file documented as of this encounter Visit Diagnoses Not on filedocumented in this encounter Care Teams Electronics Utility Worker Relationship Specialty Start Date End Date Name, MD Luis Eduardo [address] [place] [address] PCP - General Geriatric Psychiatry 03/29/21 Taryn De La Garza, [facility] [address] [place] [address] Richard@[email or web address] Hearing Dog Trainer Oncology 08/09/20 02/02/24 Yanira Saez RN [address] [place] [address] EDGARDO@[email or web address] Nurse Navigator 08/19/20 May Howard RN [address] [place] [address] [email or web address] Nurse Navigator 03/31/21 Bell Small MD [address] [place] [phone] Neda@[email or web address] Medical Oncology 01/03/22 Priya Dee RN [address] [place] [address] BRAYAN@[email or web address] Primary Infusion Nurse 08/07/23 Chaya Gonzales, [address] [address] [email or web address] Hearing Dog Trainer Oncology 02/03/24 03/31/24 documented as of this encounter Additional Source Comments The information contained in this document represents components of the legal health record. It is not the complete legal health record.[facility]
--- OUTSIDE RECORDS SUMMARY | 2025-07-02 13:44 | XMS_ITS | Encounter Summary ---
Author Organization [facility] Address [address] [facility] [address] [place] [address] Phone Care Team Providers Care Surveyor Name Role Phone Name, Luis Eduardo NÚÑEZ Primary Care Provider [phone] Taryn De La Garza Unavailable [phone] Yanira Saez RN Unavailable May Howard RN Unavailable JOE [email or web address] Bell Small MD Unavailable [phone] Priya Dee RN Unavailable [phone] Chaya Gonzales RETAIL WIRELESS SALES CONSULTANT Unavailable [phone] Encounter Details Date Type Department Care Team (Late st Contact Info) Description 07/11/2022 Procedure Pass [facility] [place] MRI [address] [address] Social History Tobacco Use Types Packs/Day Years [...] on filedocumented in this encounter Care Teams Surveyor Relationship Specialty Start Date End Date Name, MD Luis Eduardo [address] [place] [address] PCP - General Geriatric Psychiatry 03/29/21 Taryn De La Garza, [facility] [address] [place] [address] [email or web address] Vp Human Resources Oncology 08/09/20 02/02/24 Yanira Saez, [facility] [address] [place] [address] EDGARDO@[facility] Nurse Navigator 08/19/20 May Howard RN [address] [place] [address] HASEEB@[email or web address] Nurse Navigator 03/31/21 Bell Small MD [address] [place] [address] Neda@[email or web address] Medical Oncology 01/03/22 Priya Dee RN [address] [place] [address] BRAYAN@[email or web address] Primary Infusion Nurse 08/07/23 Chaya Gonzales, [address] [address] [email or web address] Vp Human Resources Oncology 02/03/24 03/31/24 documented as of this encounter Additional Source Comments The information contained in this document represents components of the legal health record. It is not the complete legal health record.[facility]
--- OUTSIDE RECORDS SUMMARY | 2025-07-02 13:44 | XMS_ITS | Encounter Summary ---
Author Organization [facility] Address [address] [place] [address] 7 [place] [address] Care Team Providers Care Automatic Head Sawyer Name Role Phone Name, Luis Eduardo NÚÑEZ Primary Care Provider Encounter Details Date Type Department Care Team (Latest Contact Info) Description 07/14/2019 Abstract [facility] CONVERSIONS Dental, Provider, DDS Social History Tobacco Use Types Packs/Day Years Used Date Smoking Tobacco: Never Assessed Comments Unknown Sex and Gender Information Value [...] Description 07/09/2025 2:45 PM EDT Office Visit [facility] [address] [place] [address] NameLuis Eduardo MD [address] [place] [address] documented as of this encounter Visit Diagnoses Not on filedocumented in this encounter Care Teams Automatic Head Sawyer Relationship Specialty Start Date End Date Luis Eduardo Deleon MD [address] [place] [address] PCP - General Family Medicine 11/04/18 documented as of this encounter
--- OUTSIDE RECORDS SUMMARY | 2025-07-02 13:44 | XMS_ITS | Encounter Summary ---
Author Organization [facility] Address [address] [facility] [address] [place] [address] Phone Care Team Providers Care Manager Army Name Role Phone Name, Luis Eduardo NÚÑEZ Primary Care Provider [phone] Taryn De La Garza Unavailable [phone] Yanira Saez RN Unavailable May Howard RN Unavailable JOE [email or web address] Bell Small MD Unavailable [phone] Priya Dee RN Unavailable [phone] Chaya Gonzales STAMPING MILL TENDER Unavailable [phone] Encounter Details Date Type Department Care Team (Late st Contact Info) Description 11/16/2021 Procedure Pass [facility] Periop [address] [place] [address] Social History Tobacco Use Types Packs/Day Years [...] on filedocumented in this encounter Care Teams Manager Army Relationship Specialty Start Date End Date Name, MD Luis Eduardo [address] [place] [phone] PCP - General Geriatric Psychiatry 03/29/21 Taryn De La Garza, [facility] [address] [place] [address] [email or web address] Tubing Oiler Oncology 08/09/20 02/02/24 Yanira Saez, [facility] [address] [place] [address] EDGARDO@[email or web address] Nurse Navigator 08/19/20 May Howard RN [address] [place] [address] [email or web address] Nurse Navigator 03/31/21 Bell Small MD [address] [place] [address] Neda@[email or web address] Medical Oncology 01/03/22 Priya Dee, RN [address] [place] [address] BRAYAN@[email or web address] Primary Infusion Nurse 08/07/23 Chaya Gonzales, [address] [address] [email or web address] Tubing Oiler Oncology 02/03/24 03/31/24 documented as of this encounter Additional Source Comments The information contained in this document represents components of the legal health record. It is not the complete legal health record.[facility]
--- OUTSIDE RECORDS SUMMARY | 2025-07-02 13:44 | XMS_ITS | Encounter Summary ---
Author Organization [facility] Address [address] [facility] [address] [place] [address] Phone Care Team Providers Care Airport Ramp Attendant Name Role Phone Name, Luis Eduardo NÚÑEZ Primary Care Provider [phone] Taryn De La Garza Unavailable [phone] Yanira Saez RN Unavailable May Howard RN Unavailable JOE [email or web address] Bell Small MD Unavailable [phone] Priya Dee RN Unavailable [phone] Chaya Gonzales TRADING ANALYST Unavailable [phone] Encounter Details Date Type Department Care Team (Late st Contact Info) Description 01/03/2022 Procedure Pass Oriana Lank Imaging Department, [facility] [place], MRI [address] [address] Social History Tobacco Use Types Packs/Day Years [...] on filedocumented in this encounter Care Teams Airport Ramp Attendant Relationship Specialty Start Date End Date Name, MD Luis Eduardo [address] [place] [address] PCP - General Geriatric Psychiatry 03/29/21 Taryn De La Garza, [facility] [address] [place] [address] [email or web address] Hammer Mill Operator Oncology 08/09/20 02/02/24 Yanira Saez, [facility] [address] [place] [address] EDGARDO@[email or web address] Nurse Navigator 08/19/20 May Howard RN [address] [place] [address] HASEEB@[facility] Nurse Navigator 03/31/21 Bell Small MD [address] [place] [address] Neda@[facility] Medical Oncology 01/03/22 Priya Dee RN [address] [place] [address] BRAYAN@[email or web address] Primary Infusion Nurse 08/07/23 Chaya Gonzales, [address] [address] [email or web address] Hammer Mill Operator Oncology 02/03/24 03/31/24 documented as of this encounter Additional Source Comments The information contained in this document represents components of the legal health record. It is not the complete legal health record.[facility]
--- OUTSIDE RECORDS SUMMARY | 2025-07-02 13:44 | XMS_ITS | Encounter Summary ---
Author Organization [facility] Address [address] [facility] [address] [place] [address] Phone Care Team Providers Care Database Tester Name Role Phone Name, Luis Eduardo NÚÑEZ Primary Care Provider [phone] Taryn De La Garza Unavailable [phone] Yanira Saez RN Unavailable May Howard RN Unavailable [email or web address] Bell Small MD Unavailable [phone] Priya Dee RN Unavailable [phone] Chaya Gonzales LUNCHROOM SUPERVISOR Unavailable [phone] Encounter Details Date Type Department Care Team (Late st Contact Info) Description 10/17/2020 Procedure Pass [facility] MR Imaging, [place] [address] [place] [address] Social History Tobacco Use Types Packs/Day Years [...] on filedocumented in this encounter Care Teams Database Tester Relationship Specialty Start Date End Date Name, MD Luis Eduardo [address] [place] [address] [phone] PCP - General Geriatric Psychiatry 03/29/21 Taryn De La Garza, [facility] [address] [place] [address] [email or web address] Press Leader Oncology 08/09/20 02/02/24 Yanira Saez, AV[address]IL [address] [place] [address] [email or web address] Nurse Navigator 08/19/20 May Howard RN [address] [place] [address] [email or web address] Nurse Navigator 03/31/21 Bell Small MD [address] [place] [phone] [email or web address] Medical Oncology 01/03/22 Priya Dee, RN [address] [place] [address] [email or web address] Primary Infusion Nurse 08/07/23 Chaya Gonzales, [address] [address] [email or web address] Press Leader Oncology 02/03/24 03/31/24 documented as of this encounter Additional Source Comments The information contained in this document represents components of the legal health record. It is not the complete legal health record.[facility]
--- OUTSIDE RECORDS SUMMARY | 2025-07-02 13:44 | XMS_ITS | Clinical Summary ---
Author Organization [employer] Address [address] [facility] 7t [place] [address] Care Team Providers Care Evaluation Specialist Name Role Phone Name, Luis Eduardo NÚÑEZ Primary Care Provider [phone] Allergies No known active allergies Medications nabumetone (Relafen) 500 MG tablet Take 1 tablet (500 mg) by mouth 2 times daily. 60 tablet 3 4 07/24/20 25 Active EPINEPHrine (Epipen) 0.3 MG/0.3ML injection syringe Inject 0.3 mL (0.3 mg) as directed 1 (one) time if needed for anaphylaxis for up to 1 dose. Inject into upper leg. Call 911 after use. 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, or oral allergy syndrome - This is a local irritation of the mouth and throat after ingestion of raw foods (often raw fruits, veggies, some nuts, etc.) that have proteins that are structurally similar to proteins found in environmental pollens (often birch, grasses, ragweed, sometimes latex) - This is NOT a true IgE mediated reaction, does not lead to anaphylaxis, and does not require an EpiPen - If the patient's symptoms progressed beyond local irritation of the mouth and throat, they are to come back to allergy clinic [facility] for official food allergy testing - In the meantime, cooking or baking raw fruits and veggies can help eliminate most of the symptoms (the exception would be nuts, as roasting nuts increases the allergenicity of the protein) - The data on whether or not SCIT including the associated environmental allergen improves oral allergy symptoms is mixed, but can be trialed if symptoms interfere with the patient's quality of life 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 Overview (06/10/2023): Last Assessment & Plan: - Likely idiopathic urticaria with a strong dermatographia component, which usually is not found to have an underlying cause (exceptions would be cholinergic urticaria) - Precipitating factors can be viral infections, excessive NSAID use (NOT an IgE mediated allergy to NSAIDs), autoimmunity, or thyroid conditions, HOWEVER an extensive workup for the above is NOT indicated according to national guidelines - In certain cases, immunosuppressive medications can shift the immune response from the Th1 response to a Th2 response, and patients can be more likely to develop hives, however this does not represent an allergy to the medication itself, as in the case that this patient as there is no development of hives or any other IgE mediated symptoms within 30 minutes to 1 hour of ingesting the medication - The patient can continue sorafenib without concern of anaphylactic reaction at this time and can take daily suppressive antihistamines to help control her hives - Environmental and food allergy testing is NOT indicated for idiopathic urticaria, as SCIT or food elimination would not lead to their resolution (and unnecessary food testing can lead to unnecessary avoidance of foods, which can lead to malnutrition or in rare cases development of true IgE mediated food reactions upon reintroduction after prolonged avoidance) - The mainstay of treatment is usually H1 +/- H2 antihistamines (usually ceterizine or fexofenadine +/- famotidine), montelukast (which I prefer not to use unless the patient would like to trial it given its risk for mood changes), or omalizumab if the aformentioned measures fail - Even if associated with angioedema, an Epi-Pen is NOT indicated as progression to anaphylaxis is extremely rare - We discussed different antihistamine regimens for her and rather than starting high-dose antihistamines and tapering off, we will have her do daily cetirizine 10 mg and famotidine 20 mg to keep her hives under control - She can try every 3 to 4 months to go off antihistamines to see if her hives resolve, but it is highly likely that she will have recurrences in the future - She can uptitrate antihistamines to cetirizine 20 mg twice daily and famotidine 40 mg twice daily if necessary, if this does not control her hives we can discuss Xolair as above Seasonal allergic rhinitis due to pollen 022 Overview (06/10/2023): Last Assessment & Plan: - Given dermatographia on exam today, we will order environmental RAST testing - Recommend flonase/flonase sensimist 1 spray BID with nasal saline rinses beforehand, discussed correct technique 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 Diagnosed in June 2018, with about 1 cm growth in the last two years, she started sorafenib 400mg daily 09/02/20. She presents today after ~ 2 months on therapy for a toxicity evaluation. Overall she is doing well. She has nausea, rash, diarrhea, taste changes, ORLY, weight loss, all mild and grade 1. For nausea, she can take zofran as needed, a prescription was sent. For her diarrhea, take imodium PRN. Grade 1 hand rash, nothing on her feet, continue urea cream. Last visit alk phos and eos were slightly increased, these are now down treading. Her labs and functional status are acceptable for treatment today. She will continue sorafenib 400mg daily today. Standard desmoid fibromatosis dosing. Overall I would plan for treatment with sorafenib for 6 to 12 months to maximize her response, and then proceed with a treatment break, and return to observation. Already her symptoms are greatly improved. I expect her MRI in 1 month to show response in terms of size or enhancement change. Genetics referral complete, FAP ruled out. Oncopanel failed for insufficient tissue. RTC 1 months with MRI of her left leg, cbc, cmp for restaging evaluation. I will be leaving [facility] and she will be scheduled in the sarcoma medical oncology clinic for her follow-up. 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 Encounters Date Type Department Care Team Description 07/02/2025 Orders Only [facility] External Provider, [facility] 07/01/2025 Patient Outreach [facility] [address] [place] [address] Luis Eduardo Deleon MD Pre-visit Planning (SDOH was already completed) 04/05/2025 Telephone [facility] MEDICINE [address] [place], [place] [phone] Luis Eduardo Deleon MD Referral from Last 3 Months Social History Tobacco Use Types Packs/Day Years Used Date Smoking Tobacco: Never Smokeless Tobacco: Never Tobacco Cessation:Counseling Given: Not Answered Alcohol Use Standard Drinks/Week Comments Never 0 (1 standard drink = 0.6 oz pur e alcohol) Depression Answer Date Recorded Patient Health Questionnaire-9 Score 0 01/21/2023 Housing Stability Answer Date Recorded What is your housing situation today? I have rudykaren alves 10/27/[address] you [...] Orientation Straight 09/03/2022 10 :32 AM EDT Last Filed Vital Signs Vital Sign Reading Time Taken Comments Blood Pressure 120/77 07/24/2024 3:01 PM EDT Pulse 93 07/24/2024 3:01 PM EDT Temperature 36.2 C (97.1 F) 02/15/2023 9:53 AM EDT Respiratory Rate 21 07/24/2024 3:01 PM EDT Oxygen Saturation 98% 07/24/2024 3:01 PM EDT Inhaled Oxygen Concentration - - Weight 58.4 kg (128 lb 12.8 oz) 07/24/2024 3:01 PM EDT Height 154.9 cm (5' 1 ) 07/24/2024 3:01 PM EDT Body Mass Index 24.34 07/24/2024 3:01 PM EDT Plan of Treatment Upcoming Encounters Date Type Department Care Team (Late st Contact Info) Description 07/09/2025 2:45 PM EDT Office Visit [facility] MED[facility] [address] [place] [address] Name, MD Luis Eduardo [address] [place] [address] Health Maintenance Due Date Last Done Comments HIV Screening 1989 Disability Screening 1989 HIB Vaccines (1 of 1 - Risk 1-dose series) 10/09/1990 Meningococcal Vaccine (1 - Risk 2-dose series) 1991 Meningococcal B Vaccine (1 o f 5 - Increased Risk) 1999 Alcohol/Substance Use Screening 2001 Family Planning (PISQ) 2004 HPV Vaccines (1 - 3-dose series) 2004 Hepatitis C Screening 2007 DTaP/Tdap/Td Vaccines (1 - Tdap) 2008 Hepatitis B Vaccines (1 of 3 - 19+ 3-dose series) 2008 Pneumococcal Vaccine: Pediatrics (0 to 5 Years) and At-Risk Patients (6 to 49) Years (1 of 2 - PCV) 2008 Depression Screening 01/22/2024 01/21/2023, 01/21/2023 COVID-19 Vaccine (1 - 2023-2 5 season) 2024 Influenza Vaccine (#1) 2025 Tobacco Screening 07/24/2025 07/24/2024 Pap Smear 10/10/2025 10/10/2022, 06/24/2019 SDOH Screening 11/16/2025 11/16/2024 Cervical Cancer Screening 10/10/2027 HPV/Cotest 10/10/2027 10/10/2022, 06/24/2019 Zoster Vaccines (1 of 2) 2039 RSV Patients and Patients Aged 60 years or older (1 - 1-dose 75+ series) 2064 Hepatitis A Vaccines Aged Out No long er eligible based on patient's age to complete this topic IPV Vaccines Aged Out No longer eligi ble based on patient's age to complete this topic RSV under 20 months Aged Out No longe r eligible based on patient's age to complete this topic Rotavirus Vaccines Aged Out No longer eligible based on patient's age to complete this topic Procedures Procedure Name Priority Date/Time Associated Diagnosis Comments COVID-19 ID NOW ([facility]) Routine 07/02/2025 1:01 PM EDT INFLUENZA A B2 ID NOW ([facility]) Routine 07/02/2025 1:01 PM EDT XR CHEST 2 VIEWS Routine 07/02/2025 12:0 8 PM EDT THINPREP PAP AND HPV MRNA E6/E7 Routine 10/10/2022 11:15 AM EST from Last 3 Months or Most Recently Relevant to Health Maintenance Results * Influenza A B2 ID NOW ([facility]) (07/02/2025 1:01 PM EDT) IDNOW SERIAL# [id number] [facility] Influenza A Negative Negative [facility] Influenza B2 Negative Negative [facility] Influenza A B2 Note See Note [facility] Comment:The Chambers ID NOW In fluenza [...] LAB MICROBIOLOGY - GENERAL ORDERABLES Final Result [facility] [address] [place] [phone] * COVID-19 ID NOW ([facility]) (07/02/2025 1:01 PM EDT) Pathologist [facility] IDNOW SERIAL# [id number] [facility] COVID-19 TEST Negative Negative [facility] COVID-19 NOTE See Note [facility] Comment: Results are for the identification of SARS-CoV2 RNA. TheSARS-CoV2 RNA is generally detectable in respiratory samplesduring the acute phase of infection. Positive results areindicative of the presence of SARS-CoV-2 RNA; clinicalcorrelation with patient history and other diagnosticinformation is necessary to determine patient infectionstatus. Positive results do not rule out bacterial infectionor co- infection with other viruses.Testing facilities within the [place] and [facility] are required to report all positive results [...] use by authorized laboratories.Testing performed on the [facility] NOW utilizing NAAT. 07/02/2025 1:01 PM EDT 07/02/2025 1:03 PM EDT us Generic External Data Provider LAB MOLECULAR KYRA GNOSTICS ORDERABLES Final Result Performing Organization Address City/State/[facility] Co de Phone Number [facility] [address] [place] [address] [phone] * XR Chest 2 Views (07/02/2025 12:08 PM EDT) Anatomical Region Laterality Modality Chest Radiographic Amy ging 07/02/2025 12:0 8 PM EDT Narrative 07/02/2025 1:14 PM EDT [address] [address] XRay Report Signed Patient: Roxanne Ca MR#: [id number] 5 : 1990 Acct:[id number] Age/Sex: 34 / F ADM Date: 07/02/25 Loc: HO.ED Attending Dr: Ordering Physician: Steve Jeffers Date of Service: 07/02/25 Procedure(s): XR chest 2V Accession Number(s): [id number] cc: [facility]; Steve Jeffers EXAMINATION: XR CHEST CLINICAL INFORMATION: [...] 07/02/25 1311 DD/ 1208 TD/TT: 07/02/25 1305 Punch Hand: Procedure Note Donotuseinterpreter, Image - 07/02/2025 [place] [address] XRay Report Signed Patient: Fletcher Ca#: [id number] 5 : 1990Acct:[id number] Age/Sex: 34 / FADM Date: 07/02/25 Loc: .ED Attending Dr: Ordering Physician: Steve Jeffers Date of Service: 07/02/25 Procedure(s): XR chest 2V Accession Number(s): [id number] cc: [facility]; Steve Jeffers EXAMINATION: XR CHEST CLINICAL INFORMATION: [...] 07/02/25 1311 DD/ 1208 TD/TT: 07/02/25 1305 Punch Hand: [facility] External Provider IMG XR PROCEDURES Edited Result - Final * Thinprep PAP and HPV nRNA E6/E7 (10/10/2022 11:15 AM EST) Clinical Information: None given [facility] LMP: 09/19/22 [employer] [place] [employer] Diagnost Prev. PAP: NONE GIVEN [facility] Diagnost Prev. BX: NONE GIVEN [facility] SOURCE: None given [facility] Statement Of Adequacy: [facility] Comment: Satisfactory for evaluation. Endocervical/transformation zone component present. Interpretation/ Result: Negative for intraepithelial lesion or malignancy. [employer] [place] Access [employer] 3 Cytotechnologis t: [facility] Comment: MSM, CT(ASCP) CT screening location: [place] [address] (Always Message) [employer] [facility] Comment: EXPLANATORY NOTE: The Pap is a screening test for cervical cancer. It is not a diagnostic test and is subject to false negative and false positive results. It is most reliable when a satisfactory sample, regularly obtained, is submitted with relevant clinical findings and history, and when the Pap result is evaluated along with historic and current clinical information. HPV nRNA E6/E7 Not Detected Not Detected [facility] Comment: Methodology: Nurse Practitioner Per Diem-Mediated Amplification This assay detects E6/E7 viral messenger RNA (mRNA) from 14 high-risk HPV types (16,18,31,33,35,39,45,51,52,56,58,59,66,68). Cervical sources are required for HPV testing. If a vaginal source from a patient who has had a total hysterectomy with removal of cervix was submitted, please contact the testing laboratory for alternative testing options. For additional information, please refer to http://education.fastDove.Medlio/faq/DFN502r7 (This link if provided for information/ educational purposes only.) 10/10/2022 11:1 5 AM EST 10/11/2022 8:55 AM EST Narrative [facility] - 10/15/2022 9:07 AM EST FASTING: UNKNOWN Elysia Ford CNM LAB PATHOLOGY ORDERABLES Final Result [facility] [address], [place] [address] [facility] [address], [place] [address] from Last 3 Months or Most Recently Relevant to Health Maintenance Insurance [address] [place], [place] [facility] [employer] [address] [place] [address] [address] [place] [address] Care Teams Evaluation Specialist Relationship Specialty Start Date End Date Name, MD Luis Eduardo [address] [place], [place] PCP - General Family Medicine 11/04/18
--- OUTSIDE RECORDS SUMMARY | 2025-07-02 13:44 | XMS_ITS | Encounter Summary ---
Author Organization [employer] [facility] Address [address] [place] [address] [address] [place] [address] Care Team Providers Care Chemical Etching Processor Name Role Phone Name, Luis Eduardo NÚÑEZ Primary Care Provider [phone] Encounter Details Date Type Department Care Team ([facility] Contact Info) Description 10/10/2022 Abstract [facility] MEDICINE [address] [place] [address] ProviderMirtha MD Social History Tobacco Use Types Packs/Day Years Used Date Smoking Tobacco: Never Assessed Comments Unknown Sex and Gender Information Value Date Recorded Sex Assigned at Female 09/03/2022 10:32 AM EDT Legal Sex Female 10:32 AM EDT Gender Identity Female 09/03/2022 10:32 AM EDT Sexual Orientation Straight 09/03/2022 10 :32 AM EDT COVID-19 Exposure Response Date Recorded In the last 10 days, have yo u been in contact with someone who was confirmed or suspected to have Coronavirus/COVID-19? No / Unsure 10/10/2022 10:45 AM EST documented as of this encounter Plan of Treatment Upcoming Encounters Date Type Department Care Team (Late st Contact Info) Description 07/09/2025 2:45 PM EDT Office Visit [facility] [address] [place] [address] [phone] Luis Eduardo Deleon MD [address] [place] [phone] documented as of this encounter Visit Diagnoses Not on filedocumented in this encounter Care Teams Chemical Etching Processor Relationship Specialty Start Date End Date Luis Eduardo Deleon MD [address] [place] [address], [place] [address] PCP - General Family Medicine 11/04/18 documented as of this encounter
--- OUTSIDE RECORDS SUMMARY | 2025-07-02 13:44 | XMS_ITS | Encounter Summary ---
Author Organization [facility] Address [address] [place] [phone] Phone Care Team Providers Care Systems Librarian Name Role Phone Name, Luis Eduardo NÚÑEZ Primary Care Provider [phone] Taryn De La Garza Unavailable [phone] aYnira Saez RN Unavailable May Howard RN Unavailable JOE [email or web address] Bell Small MD Unavailable [phone] Priya Dee RN Unavailable [phone] Chaya Gonzales Unavailable [phone] Encounter Details Date Type Department Care Team (Late st Contact Info) Description 12/25/2023 Procedure Pass [facility] MR Imaging, [place] [address] [place] [address] Social History Tobacco Use Types Packs/Day Years [...] on filedocumented in this encounter Care Teams Systems Librarian Relationship Specialty Start Date End Date Name, MD Luis Eduardo [address] [place] [address] PCP - General Geriatric Psychiatry 03/29/21 Taryn De La Garza, [facility] [address] [place] [address] [email or web address] Lieutenant Fire Fighter Oncology 08/09/20 02/02/24 Yanira Saez RN [address] [place] [address] [email or web address] Nurse Navigator 08/19/20 May Howard RN [address] [place] [address] [email or web address] Nurse Navigator 03/31/21 Bell Small MD [address] [place] [phone] Neda@[email or web address] Medical Oncology 01/03/22 Priya Dee RN [address] [place] [address] [email or web address] Primary Infusion Nurse 08/07/23 Chaya Gonzales, [address] [address] [email or web address] Lieutenant Fire Fighter Oncology 02/03/24 03/31/24 documented as of this encounter Additional Source Comments The information contained in this document represents components of the legal health record. It is not the complete legal health record.[facility]
--- OUTSIDE RECORDS SUMMARY | 2025-07-02 13:44 | XMS_ITS | Encounter Summary ---
Author Organization [facility] Address [address] [facility] [address] [place] [address] Phone Care Team Providers Care Aquarium Specialist Name Role Phone Name, Luis Eduardo NÚÑEZ Primary Care Provider [phone] Taryn De La Garza Unavailable [phone] Yanira Saez RN Unavailable May Howard RN Unavailable JOE [email or web address] Bell Small MD Unavailable [phone] Priya Dee RN Unavailable [phone] Chaya GonzalesSW Unavailable [phone] Encounter Details Date Type Department Care Team (Late st Contact Info) Description 04/05/2021 Procedure Pass [facility] MRI [address] [address] Social History Tobacco Use Types Packs/Day Years [...] on filedocumented in this encounter Care Teams Aquarium Specialist Relationship Specialty Start Date End Date Name, MD Luis Eduardo [address] [place] [address] PCP - General Geriatric Psychiatry 03/29/21 Taryn De La Garza, [facility] [address] [place] [address] [email or web address] Shoe Lay Out Planner Oncology 08/09/20 02/02/24 Yanira Saez, AV[address]IL [address] [place] [address] [email or web address]@[email or web address] Nurse Navigator 08/19/20 May Howard RN [address] [place] [address] [email or web address] Nurse Navigator 03/31/21 Bell Small MD [address] [place] [phone] Neda@[facility] Medical Oncology 01/03/22 Priya Dee RN [address] [place] [address] [email or web address]@[email or web address] Primary Infusion Nurse 08/07/23 Chaya Gonzales, [address] [address] [email or web address] Shoe Lay Out Planner Oncology 02/03/24 03/31/24 documented as of this encounter Additional Source Comments The information contained in this document represents components of the legal health record. It is not the complete legal health record.[facility]
--- OUTSIDE RECORDS SUMMARY | 2025-07-02 13:44 | XMS_ITS | Encounter Summary ---
Author Organization [facility] Address [address] [facility] [address] [place] [address] Phone Care Team Providers Care Anaesthetic Technician Name Role Phone Name, Luis Eduardo NÚÑEZ Primary Care Provider [phone] Taryn De La Garza Unavailable [phone] Yanira Saez RN Unavailable May Howard RN Unavailable JOE [email or web address] Bell Small MD Unavailable [phone] Priya Dee RN Unavailable [phone] Chaya Gonzales SECOND WATCH SERGEANT Unavailable [phone] Encounter Details Date Type Department Care Team (Late st Contact Info) Description 10/02/[address] [facility] MR Imaging, [place] [address] [place] [address] Social History Tobacco Use Types Packs/Day Years [...] on filedocumented in this encounter Care Teams Anaesthetic Technician Relationship Specialty Start Date End Date Name, MD Luis Eduardo [address] [place] [address] PCP - General Geriatric Psychiatry 03/29/21 Taryn De La Garza, [facility] [address] [place] [address] [email or web address] Domestic Laundry Worker Oncology 08/09/20 02/02/24 Yanira Saez, [address] [place] [address] EDGARDO@[email or web address] Nurse Navigator 08/19/20 May Howard RN [address] [place] [address] [email or web address] Nurse Navigator 03/31/21 Bell Small MD [address] [place] [address] Neda@[facility] Medical Oncology 01/03/22 Priya Dee, RN [address] [place] [address] [email or web address] Primary Infusion Nurse 08/07/23 Chaya Gonzales, [address] [address] [email or web address] Domestic Laundry Worker Oncology 02/03/24 03/31/24 documented as of this encounter Additional Source Comments The information contained in this document represents components of the legal health record. It is not the complete legal health record.[facility]
--- OUTSIDE RECORDS SUMMARY | 2025-07-02 13:45 | XMS_ITS | Clinical Summary ---
Author Organization [facility] Address [address] [facility] [address] [place] [address] Phone Care Team Providers Care Lead Developer Name Role Phone Name, Luis Eduardo NÚÑEZ Primary Care Provider [phone] Yanira Saez RN Unavailable May Howard RN Unavailable JOE [email or web address] Bell Small MD Unavailable [phone] Priya Dee RN Unavailable [phone] Allergies No known active allergies Medications acetaminophen (TYLENOL) 325 mg tablet Take 650 mg by mouth every 6 (six) hours as needed for mild pain. Active nirogacestat (OGSIVEO) 50 mg tabletIndication s:Desmoid fibromatosis Take 2 tablets (100 mg total) by mouth 2 (two) times a day. Follow instructions given by provider. 120 tablet 1 4 Active Active Problems Patient Care Coordination No te Formatting of this note migh t be different from the original. First Doxil: palpitations and facial flushing *Needs Retail Sales Lead* Nexavar 200mg tab has been approved until 11/02/2022 with case# [id number]. Copay is $0 at [facility] pharmacy. Problem Noted Date Diagnosed Date Seasonal allergic rhinitis due to pollen 022 Assessment & Plan (09/10/2022 5:19 PM EST): - Given dermatographia on exam today, we will order environmental RAST testing - Recommend flonase/flonase sensimist 1 spray BID with nasal saline rinses beforehand, discussed correct technique Allergic conjunctivitis of both eyes 09/10/2022 Assessment & Plan (09/10/2022 12:38 PM EST): - Nasal regimen as above - Can also consider Systane lubricating drops with subsequent application of Zaditor or Pataday twice daily (lubricating drops will help mitigate the drying effect of the allergy eye drops) 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 Assessment & Plan (09/10/2022 5:24 PM EST): - Likely idiopathic urticaria with a strong [...] hives we can discuss Xolair as above Allergic pharyngitis 09/10/2022 Assessment & Plan (09/10/2022 5:19 PM EST): - The patient's symptoms are most consistent [...] interfere with the patient's quality of life 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 I will be leaving [facility] and she will be scheduled in the sarcoma medical oncology clinic for her follow-up. 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 We discussed the rarity of sarcomas in general, about 12-13,000 cases in the [place] per year, which represents approximately less than 1% of adult malignancies. We discussed that there are approximately 50 to 100 different subtypes of soft tissue sarcomas. We discussed the natural history and prognosis of desmoid tumors/desmoid fibromatosis. We discussed the rarity of desmoid tumors. Desmoid tumors or desmoid fibromatosis are not true cancers, in that they do not result in metastatic disease. However, desmoid tumors are a locally aggressive phenomenon, and can cause problems locally, sometimes severe, but do not result in distant disease. Desmoid tumors are usually slow-growing. Management of desmoid tumors must be carefully considered. The majority of patients with desmoid tumors will live a normal lifespan. Occasionally desmoid tumors regress. Additionally desmoid tumors may remain stable for long periods time, not requiring treatment. Intraabdominal desmoid tumors typically occur in the mesentery. Sometimes multifocal disease can develop. Surgery can be complicated but multiple problems including injury to the vascular and short gut syndrome, leading to nutritional deficiencies. Some desmoid are associated with FAP, familial adenomatosis polyposis. The first line of treatment is usually observation. If desmoid tumors grow and cause symptoms then systemic therapy options include NSAID's (sulindac), tamoxifen, imatinib (Gleevec), or sorafenib (Nexavar). Classic chemotherapy with doxorubicin, Doxil, doxorubicin/dacarbazine, or methotrexate/vinblastine are additional options. Given the higher side effect profile classic chemotherapy my preference would be an oral tyrosine kinase inhibitor first. There is no FDA approved medication of desmoid. However sorafenib has been shown at the 400 mg daily dosing to be quite effective for desmoid fibromatosis. A retrospective series showed a 70% improvement in symptoms, 25% partial response rate with another 70% stable disease. (Syl MM, Jennifer RA, Vinay ML, Tano DR, Daryl M, Nasra CR, S, Olaf L, Maria Eugenia RG. Activity of Sorafenib against desmoid tumor/deep fibromatosis. Clin Cancer Res. 2010Apr 18; 17(12): 4086-90.) The risks/side effects and benefits of chemotherapy with sorafenib were discussed with the patient. Side effects include short term: hand-foot syndrome, GI upset, nausea, vomiting, diarrhea, mouth sores, cytopenias, hypertension, cardiac arrhythmia, proteinuria, liver or renal dysfunction and hypothyroidism. The patient agreed to proceed with chemotherapy and signed consent today. An interpretor was present via phone for the consenting process, name Aaliyah Hudson. The patient signed consent in her present. Overall I would recommend treatment with sorafenib given her symptoms and growth of the tumor at 400mg daily. RTC 2 weeks after starting sorafenib, to assess her side effects, and then monthly, with restaging at three months with MRI of her left leg. She signed consent for 17-000, plan for research oncopanel, and refer to genetics to rule out FAP. Family History Medical History Relation Comments Head and neck cancer Maternal Grandfather Bone cancer Maternal Uncle Relation Status Comments Maternal Grandfather Maternal Uncle Social History Tobacco Use Types Packs/Day Years Used Date Smoking Tobacco: Never Smokeless Tobacco: Never Tobacco Cessation:Counseling Given: Not Answered Alcohol Use Standard Drinks/Week Comments Not Currently [...] on file Sexual Orientation Not on file Last Filed Vital Signs Vital Sign Reading Time Taken Comments Blood Pressure 122/71 06/26/2024 1:29 PM EDT Pulse 90 06/26/2024 1:29 PM EDT Temperature 37.2 C (99 F) 06/26/2024 1:29 PM EDT Respiratory Rate 18 06/26/2024 1:26 PM EDT Oxygen Saturation 93% 06/26/2024 1:29 PM EDT Inhaled Oxygen Concentration - - Weight 57.6 kg (127 lb) 08/28/2024 11:13 AM EDT Height 154 cm (5' 0.63 ) 06/03/2024 3:18 PM EDT Body Mass Index 24.29 06/03/2024 3:18 PM EDT Plan of Treatment Health Maintenance Due Date Last Done Comments Adult Td,Tdap Booster 1989 DEPRESSION SCREENING 2001 HEPATITIS C SCREENING 2007 HIV ONE-TIME SCREENING (18-6 5 YEARS) 2007 PAP SMEAR 2010 COVID-19 VACCINE (2023-2 5 season) 2024 INFLUENZA VACCINE (#1) 2025 SMOKING STATUS SCREENING (On ce After 26 Yrs) Completed 09/11/2023 HEPATITIS A VACCINES Aged Out No long er eligible based on patient's age to complete this topic HIB VACCINES Aged Out No longer eligi ble based on patient's age to complete this topic MENINGOCOCCAL VACCINES (ACWY) Aged Out No longer eligible based on patient's age to complete this topic MENINGOCOCCAL VACCINES (B) Aged Out N o longer eligible based on patient's age to complete this topic PNEUMOCOCCAL VACCINES (0-49 years) Aged Out No longer eligible based on patient's age to complete this topic Medical Devices Not on file Insurance C3 ACO C3 ACO C3 ACO C3 ACO C3 ACO Care Teams Lead Developer Relationship Specialty Start Date End Date Name, MD Luis Eduardo [address] [place] [address] PCP - General Geriatric Psychiatry 03/29/21 Yanira Saez RN [address] [place] [address] [email or web address] Nurse Navigator 08/19/20 May Howard RN [address] [place] [address] HASEEB@[facility] Nurse Navigator 03/31/21 Bell Small MD [address] [place] [address] Neda@[facility] Medical Oncology 01/03/22 Priya Dee RN [address] [place] [address] [email or web address] Primary Infusion Nurse 08/07/23 Additional Source Comments The information contained in this document represents components of the legal health record. It is not the complete legal health record.[facility]
--- OUTSIDE RECORDS SUMMARY | 2025-07-02 13:45 | XMS_ITS | Encounter Summary ---
Author Organization [facility] Address [address] [facility] [address] [place] [address] Phone Care Team Providers Care Business Education Instructor Name Role Phone Name, Luis Eduardo NÚÑEZ Primary Care Provider Taryn De La Garza Unavailable [phone] Yanira Saez RN Unavailable May Howard RN Unavailable JOE [email or web address] Bell Small MD Unavailable [phone] Priya Dee RN Unavailable [phone] Chaya GonzalesSW Unavailable [phone] Encounter Details Date Type Department Care Team (Late st Contact Info) Description 12/28/2020 Procedure Pass [facility], [facility] [place], MRI [address] [facility], Floor [address]1 [place] [address] Social History Tobacco Use Types Packs/Day Years [...] on filedocumented in this encounter Care Teams Business Education Instructor Relationship Specialty Start Date End Date Name, MD Luis Eduardo [address] [place] [address] PCP - General Geriatric Psychiatry 03/29/21 Taryn De La Garza, [facility] [address] [place] [address] [email or web address] Picker Oncology 08/09/20 02/02/24 Yanira Saez, [address] [place] [address] EDGARDO@[facility] Nurse Navigator 08/19/20 May Howard RN [address] [place] [address] HASEEB@[facility] Nurse Navigator 03/31/21 Bell Small MD [address] [place] [address] Neda@[facility] Medical Oncology 01/03/22 Priya Dee RN [address] [place] [address] BRAYAN@[facility] Primary Infusion Nurse 08/07/23 Chaya Gonzales, [address] [address] [email or web address] Picker Oncology 02/03/24 03/31/24 documented as of this encounter Additional Source Comments The information contained in this document represents components of the legal health record. It is not the complete legal health record.[facility]
--- OUTSIDE RECORDS SUMMARY | 2025-07-02 13:45 | XMS_ITS | Encounter Summary ---
Author Organization [facility] Address [address] [facility] [address] [place] [address] Phone Care Team Providers Care Director Of Graduate Admissions Name Role Phone Name, Luis Eduardo NÚÑEZ Primary Care Provider [phone] Taryn De La Garza Unavailable [phone] Yanira Saez RN Unavailable May Howard RN Unavailable JOE [email or web address] Bell Small MD Unavailable [phone] Priya Dee RN Unavailable [phone] Chaya Gonzales PAINT GRINDER Unavailable [phone] Encounter Details Date Type Department Care Team (Late st Contact Info) Description 05/28/2018 Procedure Pass [facility] CT Imaging, [place] [address] [place] [address] Social History Tobacco Use Types Packs/Day Years [...] filedocumented in this encounter Additional Health Concerns Infection Onset Date Last Indicated Resolved Time COVID-19 Comment:Symptoms resolved as of 09/02/20. Patient tested locally on 08/12. COVID +. 08/18/2020 08/18/2020 09/16/2020 3:[address] documented as of this encounter Care Teams Director Of Graduate Admissions Relationship Specialty Start Date End Date Name, MD Luis Eduardo [address] [place] [address] PCP - General Geriatric Psychiatry 03/29/21 Taryn De La Garza, [facility] [address] [place] [address] [email or web address] Egg Breaking Machine Operator Oncology 08/09/20 02/02/24 Yanira Saez, [address] [place] [address] EDGARDO@[facility] Nurse Navigator 08/19/20 May Howard RN [address] [place] [address] HASEEB@[facility] Nurse Navigator 03/31/21 Bell Small MD [address] [place] [address] Neda@[facility] Medical Oncology 01/03/22 Priya Dee RN [address] [place] [address] BRAYAN@[facility] Primary Infusion Nurse 08/07/23 Chaya Gonzales, [address] [address] [email or web address] Egg Breaking Machine Operator Oncology 02/03/24 03/31/24 documented as of this encounter Additional Source Comments The information contained in this document represents components of the legal health record. It is not the complete legal health record.[facility]
--- OUTSIDE RECORDS SUMMARY | 2025-07-02 13:45 | XMS_ITS | Encounter Summary ---
Author Organization [facility] Address [address] [facility] [address] [place] [address] Phone Care Team Providers Care Labor Service Representative Name Role Phone Name, Luis Eduardo NÚÑEZ Primary Care Provider [phone] Taryn De La Garza Unavailable [phone] Yanira Saez RN Unavailable May Howard RN Unavailable JOE [email or web address] Bell Small MD Unavailable [phone] Priya Dee RN Unavailable [phone] Chaya Gonzales TODDLER TEACHER Unavailable [phone] Encounter Details Date Type Department Care Team (Late st Contact Info) Description 05/28/2018 Procedure Pass [facility] [address] [place] [address] Social History Tobacco Use Types Packs/Day Years [...] documented as of this encounter Care Teams Labor Service Representative Relationship Specialty Start Date End Date Name, MD Luis Eduardo [address] [place] [address] PCP - General Geriatric Psychiatry 03/29/21 Taryn De La Garza, [facility] [address] [place] [address] [email or web address] Cephalometric Technician Oncology 08/09/20 02/02/24 Yanira Saez, [address] [place] [address] EDGARDO@[facility] Nurse Navigator 08/19/20 May Howard RN [address] [place] [address] HASEEB@[email or web address] Nurse Navigator 03/31/21 Bell Small MD [address] [place] [address] Neda@[facility] Medical Oncology 01/03/22 Priya Dee RN [address] [place] [address] BRAYAN@[facility] Primary Infusion Nurse 08/07/23 Chaya Gonzales, [address] [address] [email or web address] Cephalometric Technician Oncology 02/03/24 03/31/24 documented as of this encounter Additional Source Comments The information contained in this document represents components of the legal health record. It is not the complete legal health record.[facility]
--- OUTSIDE RECORDS SUMMARY | 2025-07-02 13:45 | XMS_ITS | Encounter Summary ---
Author Organization [facility] Address [address] [facility] [address] [place] [address] Phone Care Team Providers Care Grizzlyman Name Role Phone Name, Luis Eduardo NÚÑEZ Primary Care Provider [phone] Taryn De La Garza Unavailable [phone] Yanira Saez RN Unavailable May Howard RN Unavailable JOE [email or web address] Bell Small MD Unavailable [phone] Priya Dee RN Unavailable [phone] Chaya Gonzales AVIONICS SHOP SUPERVISOR Unavailable [phone] Encounter Details Date Type Department Care Team (Late st Contact Info) Description 05/28/2018 Procedure Pass [facility] CT Imaging, [place] [address] [place] [address] Social History Tobacco Use Types Packs/Day Years [...] documented as of this encounter Care Teams Grizzlyman Relationship Specialty Start Date End Date Name, MD Luis Eduardo [address] [place] [address] PCP - General Geriatric Psychiatry 03/29/21 Taryn De La Garza, [facility] [address] [place] [address] [email or web address] Gas Fitter Helper Oncology 08/09/20 02/02/24 Yanira Saez, [address] [place] [address] EDGARDO@[facility] Nurse Navigator 08/19/20 May Howard RN [address] [place] [address] HASEEB@[facility] Nurse Navigator 03/31/21 eBll Small MD [address] [place] [address] Neda@[facility] Medical Oncology 01/03/22 Priya Dee RN [address] [place] [address] BRAYAN@[facility] Primary Infusion Nurse 08/07/23 Chaya Gonzales, [address] [address] [email or web address] Gas Fitter Helper Oncology 02/03/24 03/31/24 documented as of this encounter Additional Source Comments The information contained in this document represents components of the legal health record. It is not the complete legal health record.[facility]
[2025-07-02 14:00] VITALS: PULSE 126
--- NOTE | 2025-07-02 14:25 | PC.NURSE ---
Pt seen by RT and noted to have elevated HR Pt moved to ED 10 and placed on cardiac monitoring. JHOANA Angel made aware and will order EKG.
--- NOTE | 2025-07-02 14:26 | ECG_ITS ---
Test Reason : tachy Blood Pressure : */* mmHG Vent. Rate : 123 BPM Atrial Rate : 123 BPM P-R Int : 164 ms QRS Dur : 72 ms QT Int : 298 ms P-R-T Axes : 79 70 79 degrees QTcB Int : 426 ms Sinus tachycardia Otherwise normal ECG When compared with ECG of 30-Jun-2024 04:07, No significant change was found Referred By: Jeanne Walsh Electronically Signed By: DEANNE GARNICA
[2025-07-02 14:57] LABS: MANUAL DIFF FLAG NO
[2025-07-02 14:58] LABS: Hematocrit 37.5 % (37.0-47.0); Hemoglobin 13.0 g/dl (12.0-16.0); Imm Gran Abs Auto 0.04 X10*3/uL (0.00-0.03); Imm Gran Pct Auto 0.4 % (0.0-0.4); Lymphocytes Absolute Auto 0.8 X10*3/uL (1.2-4.9); Mean Corpuscular HGB Conc 34.7 g/dl (31.0-35.0); Mean Corpuscular Hemoglobin 25.0 pg (27.0-33.0); Mean Corpuscular Volume 72.1 fL (80.0-98.0); NRBC Abs Auto 0.000 X10*3/uL (0.0-0.012); NRBC Pct Auto 0.0 /100WBC (0.0-0.2); Platelet Count 277 X10*3/uL (160-400); Red Blood Count 5.20 X10*6/uL (4.20-5.50); White Blood Count 11.2 X10*3/uL (4.8-10.8)
[2025-07-02 15:17] LABS: Alanine Aminotransferase 14 U/L (0-31); Albumin Level 4.2 g/dL (3.5-5.0); Alkaline Phosphatase 115 U/L (39-117); Anion Gap 11 (12-20); Aspartate Amino Transferase 21 U/L (5-31); Blood Urea Nitrogen 10 mg/dL (9-16); Calcium 9.1 mg/dL (8.4-10.2); Carbon Dioxide 23 mmol/L (22-29); Chloride 109 mmol/L (96-108); Creatinine Clr Calc Pharmacy 99.4; Estimated Glomerular Filt Rate > 60; Magnesium 1.9 mg/dL (1.6-2.6); Potassium 3.4 mmol/L (3.3-5.1); Sodium 140 mmol/L (135-145); Total Protein 7.6 g/dL (6.5-8.0)
[2025-07-02 15:25] LABS: Troponin-I High Sensitivity < 2.7 ng/L (<3.5-17.0)
[2025-07-02 15:56] VITALS: BP 119/74; PULSE 126; RESP 22; TEMP 37.4; O2SAT 100
[2025-07-02 16:52] LABS: D Dimer High Sensitivity 728 NG/ML
[2025-07-02] MEDS: iohexoL 350 MG/ML 100 ML INFUS..BTL IV (18:33)
[2025-07-02 19:16] VITALS: BP 116/76; PULSE 121; RESP 16; TEMP 37.1; O2SAT 97
[2025-07-02 19:34] VITALS: BP 117/75; PULSE 116; RESP 18; TEMP 37; O2SAT 97
[2025-07-02 20:33] VITALS: BP 117/75; PULSE 116; RESP 18; TEMP 37; O2SAT 97
== END 2025-07-02 20:33 | disposition home or self-care (01) ==
PROVIDERS: Physician Assistant; Physician Assistant Medical; Emergency Provider Emergency Medicine
DX: B34.9 Viral infection, unspecified (principal); J98.01 Acute bronchospasm; R07.89 Other chest pain; R05.9 Cough, unspecified
CPT/HCPCS: 36415; 71046; 71275; 80053; 83735; 84484; 84702; 85025; 85379; 87502; 87635; 93005; 99285; Q9967

== ENCOUNTER → 2025-07-02 12:49 | Outpatient (BNV) | payer MEDICAID, SELFPAY | PROVIDERS: Emergency Provider Emergency Medicine; Visit Provider Radiology Diagnostic Radiology | DX: R05.3 Chronic cough (principal) | CPT/HCPCS: 71046; 71275 ==

== ENCOUNTER → 2025-07-02 14:26 | Outpatient (BNV) | payer MEDICAID, SELFPAY | PROVIDERS: Emergency Provider Emergency Medicine; Visit Provider Internal Medicine | DX: R00.0 Tachycardia, unspecified (principal) | CPT/HCPCS: 93010 ==

== ENCOUNTER 2025-07-16 09:47 | Outpatient (REF) | payer MEDICAID, SELFPAY ==
--- OUTSIDE RECORDS SUMMARY | 2025-07-16 10:58 | XMS_ITS | Encounter Summary ---
Author Organization [facility] Address [address] [facility] [address] [place] [address] Phone Care Team Providers Care Mainspring Torque Tester Name Role Phone Name, Luis Eduardo NÚÑEZ Primary Care Provider [phone] Taryn De La Garza Unavailable [phone] Yanira Saez RN Unavailable May Howard RN Unavailable JOE [email or web address] Bell Small MD Unavailable [phone] Priya Dee RN Unavailable [phone] Chaya Gonzales TRIAL CONSULTANT Unavailable [phone] Encounter Details Date Type Department Care Team (Late st Contact Info) Description 11/16/2021 Procedure Pass [facility]iop [address] [place] [address] Social History Tobacco Use Types Packs/Day Years [...] on filedocumented in this encounter Care Teams Mainspring Torque Tester Relationship Specialty Start Date End Date Name, MD Luis Eduardo [address] [place] [address] [phone] PCP - General Geriatric Psychiatry 03/29/21 Taryn De La Garza, [facility] [address] [place] [address] Richard@[email or web address] Biostatistics Professor Oncology 08/09/20 02/02/24 Yanira Saez, [address] [place] [address] EDGARDO@[facility] Nurse Navigator 08/19/20 May Howard RN [address] [place] [address] HASEEB@[email or web address] Nurse Navigator 03/31/21 Bell Small MD [address] [place] [address] Neda@[email or web address] Medical Oncology 01/03/22 Priya Dee, RN [address] [place] [address] BRAYAN@[facility] Primary Infusion Nurse 08/07/23 Chaya Gonzales, [address] [address] [email or web address] Biostatistics Professor Oncology 02/03/24 03/31/24 documented as of this encounter Additional Source Comments The information contained in this document represents components of the legal health record. It is not the complete legal health record.[facility]
--- OUTSIDE RECORDS SUMMARY | 2025-07-16 10:58 | XMS_ITS | Encounter Summary ---
Author Organization [facility] Address [address] [facility] [address] [place] [address] Phone Care Team Providers Care Data Processing Systems Project Planner Name Role Phone Name, Luis Eduardo NÚÑEZ Primary Care Provider [phone] Taryn De La Garza Unavailable [phone] Yanira Saez RN Unavailable May Howard RN Unavailable JOE WRIGHT@[email or web address] Bell Small MD Unavailable [phone] Priya Dee RN Unavailable [phone] Chaya GonzalesSW Unavailable [phone] Encounter Details Date Type Department Care Team (Late st Contact Info) Description 04/05/2021 Procedure Pass [facility] [place] [address] [address] Social History Tobacco Use Types Packs/Day Years [...] on filedocumented in this encounter Care Teams Data Processing Systems Project Planner Relationship Specialty Start Date End Date Name, MD Luis Eduardo [address] [place] [address] PCP - General Geriatric Psychiatry 03/29/21 Taryn De La Garza, [facility] 35 [place] [address] Richard@[email or web address] [place] Hand Oncology 08/09/20 02/02/24 Yanira Saez, AVRIL [address] [place] [address] EDGARDO@[facility] Nurse Navigator 08/19/20 May Howard RN [address] [place] [address] HASEEB@[facility] Nurse Navigator 03/31/21 Bell Small MD [address] [place] [address] Neda@[facility] Medical Oncology 01/03/22 Priya Dee RN 450 [place] [address] BRAYAN@[facility] Primary Infusion Nurse 08/07/23 Chaya Gonzales, [address] [address] shasta@[email or web address] [place] Hand Oncology 02/03/24 03/31/24 documented as of this encounter Additional Source Comments The information contained in this document represents components of the legal health record. It is not the complete legal health record.[facility]
--- OUTSIDE RECORDS SUMMARY | 2025-07-16 10:59 | XMS_ITS | Clinical Summary ---
Author Organization [facility] Address [address] [facility] [address] [place] [address] Phone Care Team Providers Care Mechanical Energy Engineer Name Role Phone Name, Luis Eduardo NÚÑEZ Primary Care Provider [phone] Yanira Saez RN Unavailable May Howard RN Unavailable JOE WRIGHT@[facility].[place].[facility] Bell Small MD Unavailable [phone] Priya Dee RN Unavailable [phone] Allergies No known active allergies Medications acetaminophen [...] First Doxil: palpitations and facial flushing *Needs Supervisor Epoxy Fabrication* Nexavar 200mg tab has been approved until 11/02/2022 with case# [id number]. Copay is $0 at [facility] pharmacy. Problem Noted Date Diagnosed Date Seasonal [...] for restaging evaluation. I will be leaving [facility] and she will be scheduled in the [...] fibromatosis. Clin Cancer Res. 2010Apr 18; 17(12): 4087-90.) The risks/side effects and benefits of chemotherapy [...] (18-6 5 YEARS) 2007 PAP SMEAR 2010 INFLUENZA VACCINE (#1) 2025 COVID-19 VACCINE (1 - 2024-2 5 season) 2025 SMOKING STATUS SCREENING (On ce After [...] ACO C3 ACO C3 ACO Care Teams Mechanical Energy Engineer Relationship Specialty Start Date End Date Name, MD Luis Eduardo [address] [place] [address] PCP - General Geriatric Psychiatry 03/29/21 Yanira Saez RN [address] [place] [address] EDGARDO@[facility] Nurse Navigator 08/19/20 May Howard RN [address] [place] [address] HASEEB@[facility] Nurse Navigator 03/31/21 Bell Small MD [address] [place] [address] Neda@[facility] Medical Oncology 01/03/22 Priya Dee RN [address] [place] [address] BRAYAN@[facility] Primary Infusion Nurse 08/07/23 Additional Source Comments The information contained in this document represents components of the legal health record. It is not the complete legal health record.[facility]
--- OUTSIDE RECORDS SUMMARY | 2025-07-16 10:59 | XMS_ITS | Encounter Summary ---
Author Organization [facility] Address [address] [facility] [address] [place] [address] Phone Care Team Providers Care Supervisor Slate Splitting Name Role Phone Name, Luis Eduardo NÚÑEZ Primary Care Provider Taryn De La Garza Unavailable [phone] Yanira Saez RN Unavailable May Howard RN Unavailable JOE WRIGHT@[email or web address].[facility] Bell Small MD Unavailable [phone] Priya Dee RN Unavailable [phone] Chaya GonzalesSW Unavailable [phone] Encounter Details Date Type Department Care Team (Late st Contact Info) Description 07/24/2023 Procedure Pass [facility] Echocardiography [address] [place] [address] Social History Tobacco Use Types Packs/Day Years [...] on filedocumented in this encounter Care Teams Supervisor Slate Splitting Relationship Specialty Start Date End Date Name, MD Luis Eduardo [address] [place] [address] PCP - General Geriatric Psychiatry 03/29/21 Taryn De La Garza, [facility] 35 [place] [address] Richard@[email or web address] Electrician Outside Oncology 08/09/20 02/02/24 Yanira Saez RN [address] [place] [address] EDGARDO@[facility] Nurse Navigator 08/19/20 May Howard RN [address] [place] [address] HASEEB@[facility] Nurse Navigator 03/31/21 Bell Small MD [address] [place] [address] Neda@[facility] Medical Oncology 01/03/22 Priya Dee RN [address] [place] [address] BRAYAN@[facility] Primary Infusion Nurse 08/07/23 Chaya Gonzales, [address] [address] shasta@[email or web address] Electrician Outside Oncology 02/03/24 03/31/24 documented as of this encounter Additional Source Comments The information contained in this document represents components of the legal health record. It is not the complete legal health record.[facility]
--- OUTSIDE RECORDS SUMMARY | 2025-07-16 10:59 | XMS_ITS | Encounter Summary ---
Author Organization [facility] Address [address] [facility] [address] [place] [address] Phone Care Team Providers Care Vanstone Machine Operator Name Role Phone Name, Luis Eduardo NÚÑEZ Primary Care Provider [phone] Taryn De La Garza Unavailable [phone] Yanira Saez RN Unavailable May Howard RN Unavailable JOE WRIGHT@[email or web address].[facility] Bell Small MD Unavailable [phone] Priya Dee RN Unavailable [phone] Chaya Gonzales RN UTILIZATION MANAGEMENT UM Unavailable [phone] Encounter Details Date Type Department Care Team (Late st Contact Info) Description 05/28/[address] [facility] CT Imaging, [place] [address] [place] [address] Social History Tobacco Use Types Packs/Day Years [...] documented as of this encounter Care Teams Vanstone Machine Operator Relationship Specialty Start Date End Date Name, MD Luis Eduardo [address] [place] [address] PCP - General Geriatric Psychiatry 03/29/21 Taryn De La Garza, [facility] 35 [place] [address] Richard@[email or web address] New Account Interviewer Oncology 08/09/20 02/02/24 Yanira Saez, AVRIL [address] [place] [address] EDGARDO@[facility] Nurse Navigator 08/19/20 May Howard RN [address] [place] [address] HASEEB@[facility] Nurse Navigator 03/31/21 Bell Small MD [address] [place] [address] Neda@[facility] Medical Oncology 01/03/22 Priya Dee RN [address] [place] [address] BRAYAN@[facility] Primary Infusion Nurse 08/07/23 Chaya Gonzales, [address] [address] [email or web address] New Account Interviewer Oncology 02/03/24 03/31/24 documented as of this encounter Additional Source Comments The information contained in this document represents components of the legal health record. It is not the complete legal health record.[facility]
--- OUTSIDE RECORDS SUMMARY | 2025-07-16 10:59 | XMS_ITS | Encounter Summary ---
Author Organization [facility] Address [address] [facility] [address] [place] [address] Phone Care Team Providers Care Gumming Machine Operator Name Role Phone Name, Luis Eduardo NÚÑEZ Primary Care Provider [phone] Taryn De La Garza Unavailable [phone] Yanira Saez RN Unavailable May Howard RN Unavailable JOE WRIGHT@[email or web address] Bell Small MD Unavailable [phone] Priya Dee RN Unavailable [phone] Chaya Gonzales PHYSICS PROFESSOR Unavailable Encounter Details Date Type Department Care Team (Late st Contact Info) Description 01/09/2023 Procedure Pass Oriana Lank [facility] [place] [address] [address] Social History Tobacco Use Types Packs/Day Years [...] on filedocumented in this encounter Care Teams Gumming Machine Operator Relationship Specialty Start Date End Date Name, MD Luis Eduardo [address] [place] [address] PCP - General Geriatric Psychiatry 03/29/21 Taryn De La Garza, [facility] 35 [place] [address] Richard@[email or web address] Medical Claims Examiner Oncology 08/09/20 02/02/24 Yanira Saez, AVRIL [address] [place] [address] EDGARDO@[facility] Nurse Navigator 08/19/20 May Howard RN [address] [place] [address] HASEEB@[facility] Nurse Navigator 03/31/21 Bell Small MD [address] [place] [address] Neda@[facility] Medical Oncology 01/03/22 Priya Dee RN 450 [place] [address] BRAYAN@[facility] Primary Infusion Nurse 08/07/23 Chaya Gonzales, [address] [address] shasta@[email or web address] Medical Claims Examiner Oncology 02/03/24 03/31/24 documented as of this encounter Additional Source Comments The information contained in this document represents components of the legal health record. It is not the complete legal health record.[facility]
--- OUTSIDE RECORDS SUMMARY | 2025-07-16 10:59 | XMS_ITS | Encounter Summary ---
Author Organization [facility] Address [address] [facility] [address] [place] [address] Phone Care Team Providers Care Orthodontic Treatment Coordinator Name Role Phone Name, Luis Eduardo NÚÑEZ Primary Care Provider [phone] Taryn De La Garza Unavailable [phone] Yanira Saez RN Unavailable May Howard RN Unavailable JOE WRIGHT@[email or web address] Bell Small MD Unavailable [phone] Priya Dee RN Unavailable [phone] Chaya GonzalesSW Unavailable [phone] Encounter Details Date Type Department Care Team (Late st Contact Info) Description 12/28/2020 Procedure Pass Oriana Lank Imaging Department, [facility] Cancer [place], MRI [address] [facility] Floor [address] [place] [address] Social History Tobacco Use Types Packs/Day Years [...] on filedocumented in this encounter Care Teams Orthodontic Treatment Coordinator Relationship Specialty Start Date End Date Name, MD Luis Eduardo 230 [place] [address] PCP - General Geriatric Psychiatry 03/29/21 Taryn De La Garza, [facility] 35 [place] [address] Richard@[email or web address] Planned Giving Officer Oncology 08/09/20 02/02/24 Yanira Saez, AVRIL [address] [place] [address] EDGARDO@[facility] Nurse Navigator 08/19/20 May Howard RN [address] [place] [address] HASEEB@[facility] Nurse Navigator 03/31/21 Bell Small MD [address] [place] [address] Neda@[facility] Medical Oncology 01/03/22 Priya Dee RN [address] [place] [address] BRAYAN@[facility] Primary Infusion Nurse 08/07/23 Chaya Gonzales, [address] [address] shasta@[email or web address] Planned Giving Officer Oncology 02/03/24 03/31/24 documented as of this encounter Additional Source Comments The information contained in this document represents components of the legal health record. It is not the complete legal health record.[facility]
--- OUTSIDE RECORDS SUMMARY | 2025-07-16 10:59 | XMS_ITS | Encounter Summary ---
Author Organization [facility] Address [address] [facility] [address] [place] [address] Phone Care Team Providers Care Employment Legal Assistant Name Role Phone Name, Luis Eduardo NÚÑEZ Primary Care Provider [phone] Taryn De La Garza Unavailable [phone] Yanira Saez RN Unavailable May Howard RN Unavailable JOE WRIGHT@[email or web address] Bell Small MD Unavailable [phone] Priya Dee RN Unavailable [phone] Chaya Gonzales Unavailable [phone] Encounter Details Date Type Department Care Team (Late st Contact Info) Description 12/25/2023 Procedure Pass [facility] MR Imaging, [place] [address] [place] [address] Social History Tobacco Use Types Packs/Day Years [...] on filedocumented in this encounter Care Teams Employment Legal Assistant Relationship Specialty Start Date End Date Name, MD Luis Eduardo [address] [place] [address] PCP - General Geriatric Psychiatry 03/29/21 Taryn De La Garza, [facility] 35 [place] [address] Richard@[facility] Iso Coordinator Oncology 08/09/20 02/02/24 Yanira Saez RN 44 [place] [address] EDGARDO@[facility] Nurse Navigator 08/19/20 May Howard RN [address] [place] [address] HASEEB@[facility] Nurse Navigator 03/31/21 Bell Small MD [address] [place] [address] Neda@[facility] Medical Oncology 01/03/22 Priya Dee RN 450 [place] [address] BRAYAN@[facility] Primary Infusion Nurse 08/07/23 Chaya Gonzales, [address] [address] [email or web address] Iso Coordinator Oncology 02/03/24 03/31/24 documented as of this encounter Additional Source Comments The information contained in this document represents components of the legal health record. It is not the complete legal health record.[facility]
--- OUTSIDE RECORDS SUMMARY | 2025-07-16 10:59 | XMS_ITS | Encounter Summary ---
Author Organization [facility] Address [address] [place] [address] Phone Care Team Providers Care Botany Technician Name Role Phone Name, Luis Eduardo NÚÑEZ Primary Care Provider Taryn De La Garza Unavailable [phone] Yanira Saez RN Unavailable May Howard RN Unavailable JOE WRIGHT@[email or web address].[email or web address].[facility] Bell Small MD Unavailable [phone] Priya Dee RN Unavailable [phone] Chaya Gonzales MEDICAL ADMINISTRATIVE TECHNICIAN Unavailable [phone] Encounter Details Date Type Department Care Team (Late st Contact Info) Description 05/28/2018 Procedure Pass [facility] [address] [place] [address] Social History Tobacco Use Types Packs/Day Years [...] documented as of this encounter Care Teams Botany Technician Relationship Specialty Start Date End Date Name, MD Luis Eduardo [address] [place] [address] PCP - General Geriatric Psychiatry 03/29/21 Taryn De La Garza, [facility] 35 [place] [address] Richard@[email or web address] Gyn Physician Oncology 08/09/20 02/02/24 Yanira Saez, [address] [place] [address] EDGARDO@[facility] Nurse Navigator 08/19/20 May Howard RN [address] [place] [address] HASEEB@[facility] Nurse Navigator 03/31/21 Bell Small MD [address] [place] [address] Neda@[facility] Medical Oncology 01/03/22 Priya Dee RN [address] [place] [address] BRAYAN@[facility] Primary Infusion Nurse 08/07/23 Chaya Gonzales, [address] [address] shasta@[email or web address] Gyn Physician Oncology 02/03/24 03/31/24 documented as of this encounter Additional Source Comments The information contained in this document represents components of the legal health record. It is not the complete legal health record.[facility]
--- OUTSIDE RECORDS SUMMARY | 2025-07-16 10:59 | XMS_ITS | Encounter Summary ---
Author Organization [facility] Address [address] [facility] [address] [place] [address] Phone Care Team Providers Care Virtual Classroom Manager Name Role Phone Name, Luis Eduardo NÚÑEZ Primary Care Provider [phone] Taryn De La Garza Unavailable [phone] Yanira Saez RN Unavailable May Howard RN Unavailable JOE WRIGHT@[email or web address] Bell Small MD Unavailable [phone] Priya Dee RN Unavailable [phone] Chaya Gonzales ENGINEER FISHING VESSEL Unavailable [phone] Encounter Details Date Type Department Care Team (Late st Contact Info) Description 07/11/2022 Procedure Pass Oriana Lank [facility] [place] MRI [address] [address] Social History Tobacco Use Types Packs/Day Years [...] on filedocumented in this encounter Care Teams Virtual Classroom Manager Relationship Specialty Start Date End Date Name, MD Luis Eduardo [address] [place] [address] PCP - General Geriatric Psychiatry 03/29/21 Taryn De La Garza, [facility] 35 [place] [address] Richard@[email or web address] Bell Cleaner Oncology 08/09/20 02/02/24 Yanira Saez, AVRIL [address] [place] [address] EDGARDO@[facility] Nurse Navigator 08/19/20 May Howard RN [address] [place] [address] HASEEB@[facility] Nurse Navigator 03/31/21 Bell Small MD [address] [place] [address] Neda@[facility] Medical Oncology 01/03/22 Priya Dee RN 450 [place] [address] BRAYAN@[facility] Primary Infusion Nurse 08/07/23 Chaya Gonzales, [address] [address] shasta@[facility] Bell Cleaner Oncology 02/03/24 03/31/24 documented as of this encounter Additional Source Comments The information contained in this document represents components of the legal health record. It is not the complete legal health record.[facility]
--- OUTSIDE RECORDS SUMMARY | 2025-07-16 10:59 | XMS_ITS | Encounter Summary ---
Author Organization [facility] Address [address] [facility] [address] [place] [address] Phone Care Team Providers Care Head And Neck Surgeon Name Role Phone Name, Luis Eduardo NÚÑEZ Primary Care Provider [phone] Taryn De La Garza Unavailable [phone] Yanira Saez RN Unavailable May Howard RN Unavailable JOE WRIGHT@[email or web address].[email or web address] Bell Small MD Unavailable [phone] Priya Dee RN Unavailable [phone] Chaya Gonzales CROP AND SOIL TECHNICIAN Unavailable [phone] Encounter Details Date Type Department Care Team (Late st Contact Info) Description 01/03/2022 Procedure Pass Oriana Lank [facility] [address] [address] [address] Social History Tobacco Use Types Packs/Day Years [...] on filedocumented in this encounter Care Teams Head And Neck Surgeon Relationship Specialty Start Date End Date Name, MD Luis Eduardo [address] [place] [address] PCP - General Geriatric Psychiatry 03/29/21 Taryn De La Garza, [facility] 35 [place] [address] Richard@[email or web address] Rn Flight Oncology 08/09/20 02/02/24 Yanira Saez, AVRIL [address] [place] [address] EDGARDO@[facility] Nurse Navigator 08/19/20 May Howard RN [address] [place] [address] HASEEB@[facility] Nurse Navigator 03/31/21 Bell Small MD [address] [place] [address] Neda@[facility] Medical Oncology 01/03/22 Priya Dee RN [address] [place] [address] BRAYAN@[facility] Primary Infusion Nurse 08/07/23 Chaya Gonzales, [address] [address] shasta@[email or web address] Rn Flight Oncology 02/03/24 03/31/24 documented as of this encounter Additional Source Comments The information contained in this document represents components of the legal health record. It is not the complete legal health record.[facility]
--- OUTSIDE RECORDS SUMMARY | 2025-07-16 10:59 | XMS_ITS | Encounter Summary ---
Author Organization [facility] Address [address] [facility] [address] [place] [address] Phone Care Team Providers Care Hazardous Material Specialist Name Role Phone Name, Luis Eduardo NÚÑEZ Primary Care Provider [phone] Taryn De La Garza Unavailable [phone] Yanira Saez RN Unavailable May Howard RN Unavailable JOE [email or web address] Bell Small MD Unavailable [phone] Priya Dee RN Unavailable [phone] Chaya Gonzales Unavailable [phone] Encounter Details Date Type Department Care Team (Late st Contact Info) Description 08/07/2023 Procedure Pass Oriana Lank Imaging Department, [facility] Cancer [place], MRI [address] [address] Social History Tobacco Use Types Packs/Day Years [...] on filedocumented in this encounter Care Teams Hazardous Material Specialist Relationship Specialty Start Date End Date Name, MD Luis Eduardo [address] [place] [address] PCP - General Geriatric Psychiatry 03/29/21 Taryn De La Garza, [facility] 35 [place] [address] Richard@[email or web address] Cross Tie Tram Loader Oncology 08/09/20 02/02/24 Yanira Saez RN 44 [place] [address] EDGARDO@[facility] Nurse Navigator 08/19/20 May Howard RN [address] [place] [address] HASEEB@[facility] Nurse Navigator 03/31/21 Bell Small MD [address] [place] [address] Neda@[facility] Medical Oncology 01/03/22 Priya Dee RN [address] [place] [address] BRAYAN@[facility] Primary Infusion Nurse 08/07/23 Chaya Gonzales, [address] [address] [email or web address] Cross Tie Tram Loader Oncology 02/03/24 03/31/24 documented as of this encounter Additional Source Comments The information contained in this document represents components of the legal health record. It is not the complete legal health record.[facility]
--- OUTSIDE RECORDS SUMMARY | 2025-07-16 10:59 | XMS_ITS | Encounter Summary ---
Author Organization [facility] Address [address] [facility] [address] [place] [address] Phone Care Team Providers Care Bilingual Kindergarten Teacher Name Role Phone Name, Luis Eduardo NÚÑEZ Primary Care Provider [phone] Taryn De La Garza Unavailable [phone] Yanira Saez RN Unavailable May Howard RN Unavailable JOE [email or web address] Bell Small MD Unavailable [phone] Priya Dee RN Unavailable [phone] Chaya Gonzales ELECTRICAL LINE MECHANIC Unavailable [phone] Encounter Details Date Type Department Care Team (Late st Contact Info) Description 05/28/2018 Procedure Pass [facility] CT Imaging, [place] [address] [address] Social History Tobacco Use Types Packs/Day Years [...] documented as of this encounter Care Teams Bilingual Kindergarten Teacher Relationship Specialty Start Date End Date Name, MD Luis Eduardo [address] [place] [address] PCP - General Geriatric Psychiatry 03/29/21 Taryn De La Garza, [facility] [address] [place] [address] [email or web address] Popcorn Machine Operator Oncology 08/09/20 02/02/24 Yanira Saez, [address] [place] [address] EDGARDO@[email or web address] Nurse Navigator 08/19/20 May Howard RN [address] [place] [address] [email or web address]@[email or web address] Nurse Navigator 03/31/21 Bell Small MD [address] [place] [address] Neda@[facility] Medical Oncology 01/03/22 Priya Dee RN [address] [place] [address] BRAYAN@[facility] Primary Infusion Nurse 08/07/23 Chaya Gonzales, [address] [address] [email or web address] Popcorn Machine Operator Oncology 02/03/24 03/31/24 documented as of this encounter Additional Source Comments The information contained in this document represents components of the legal health record. It is not the complete legal health record.[facility]
--- OUTSIDE RECORDS SUMMARY | 2025-07-16 10:59 | XMS_ITS | Encounter Summary ---
Author Organization [facility] Address [address] [facility] [address] [place] [address] Phone Care Team Providers Care Principal Android Developer Name Role Phone Name, Luis Eduardo NÚÑEZ Primary Care Provider Taryn De La Garza Unavailable [phone] Yanira Saez RN Unavailable May Howard RN Unavailable JOE [email or web address].[email or web address] Bell Small MD Unavailable [phone] Priya Dee RN Unavailable [phone] Chaya Gonzales ART OBJECTS SALESPERSON Unavailable [phone] Encounter Details Date Type Department Care Team (Late st Contact Info) Description 10/02/2021 Procedure Pass [facility] MR Imaging, [place] [address] [place] [address] Social History Tobacco Use Types Packs/Day Years [...] on filedocumented in this encounter Care Teams Principal Android Developer Relationship Specialty Start Date End Date Name, MD Luis Eduardo [address] [place] [address] PCP - General Geriatric Psychiatry 03/29/21 Taryn De La Garza, [facility] 35 [place] [address] [email or web address] Analytics Architect Oncology 08/09/20 02/02/24 Yanira Saez, AV[address] [place] [address] EDGARDO@[facility] Nurse Navigator 08/19/20 May Howard RN [address] [place] [address] [email or web address]@[email or web address] Nurse Navigator 03/31/21 Bell Small MD [address] [place] [address] Neda@[facility] Medical Oncology 01/03/22 Priya Dee, RN [address] [place] [address] BRAYAN@[facility] Primary Infusion Nurse 08/07/23 Chaya Gonzales, [address] [address] [email or web address] Analytics Architect Oncology 02/03/24 03/31/24 documented as of this encounter Additional Source Comments The information contained in this document represents components of the legal health record. It is not the complete legal health record.[facility]
--- OUTSIDE RECORDS SUMMARY | 2025-07-16 10:59 | XMS_ITS | Encounter Summary ---
Author Organization [facility] Address [address] [facility] [address] [place] [address] Phone Care Team Providers Care Academic Associate Name Role Phone Name, Luis Eduardo NÚÑEZ Primary Care Provider [phone] Taryn De La Garza Unavailable [phone] Yanira Saez RN Unavailable May Howard RN Unavailable JOE [email or web address].[facility] Bell Small MD Unavailable [phone] Priya Dee RN Unavailable [phone] Chaya Gonzales BUSINESS SPECIALIST Unavailable [phone] Encounter Details Date Type Department Care Team (Late st Contact Info) Description 10/17/2020 Procedure Pass [facility] MR Imaging, [place] [address] [place] [address] Social History Tobacco Use Types Packs/Day Years [...] on filedocumented in this encounter Care Teams Academic Associate Relationship Specialty Start Date End Date Name, MD Luis Eduardo [address] [place] [address] [id number] PCP - General Geriatric Psychiatry 03/29/21 Taryn De La Garza, [facility] [address] [place] [address] [email or web address] Concrete Block Molder Oncology 08/09/20 02/02/24 Yanira Saez, AV[address]IL [address] [place] [address] EDGARDO@[email or web address] Nurse Navigator 08/19/20 May Howard RN [address] [place] [address] HASEEB@[email or web address] Nurse Navigator 03/31/21 Bell Small MD [address] [place] [address] Neda@[facility] Medical Oncology 01/03/22 Priya Dee, RN [address] [place] [address] BRAYAN@[facility] Primary Infusion Nurse 08/07/23 Chaya Gonzales, [address] [address] [email or web address] Concrete Block Molder Oncology 02/03/24 03/31/24 documented as of this encounter Additional Source Comments The information contained in this document represents components of the legal health record. It is not the complete legal health record.[facility]
[2025-07-16 12:25] LABS: Cholesterol 190 mg/dL (<200); HDL Cholesterol 43 mg/dL (>40); Triglycerides 190 mg/dL (<150)
== END 2025-07-16 09:48 | disposition home or self-care (01) ==
LOC: HO.HHCL 09:47
PROVIDERS: PCP Internal Medicine Geriatric Medicine; Visit Provider Internal Medicine Geriatric Medicine
DX: R00.0 Tachycardia, unspecified (principal); Z13.220 Encounter for screening for lipoid disorders
CPT/HCPCS: 36415; 80061; 84443

== ENCOUNTER 2025-07-25 12:04 | Emergency (ER) | payer MEDICAID, SELFPAY ==
[2025-07-25 12:22] VITALS: BP 112/74; PULSE 101; RESP 18; TEMP 36.1; O2SAT 100; BMI 23.7
[2025-07-25 12:29] VITALS: BP 112/74; PULSE 101; RESP 18; TEMP 36.1; O2SAT 100
--- NOTE | 2025-07-25 12:30 | ED.GENADULT ---
HPI - General Adult General Chief complaint: Skin/Abscess/Foreign Body Stated complaint: rash on abd and thighs Time Seen by Provider: 07/25/25 12:30 Source: patient, RN notes reviewed, old records reviewed and site interpreter Mode of arrival: ambulatory Limitations: language barrier History of Present Illness ED Provider: Jen HPI narrative: Patient is a 35-year-old Malaysian speaking female presenting to the ED with complaint of erythematous rash to abdomen and chest since Saturday. Denies any shortness of breath, angioedema. States rash is not pruritic, not painful. Took benadryl and claritin with little relief. MD complaint: rash Onset (ago): day(s) Related Data Home Medications ?Medication ?Instructions ?Recorded ?Confirmed Miralax 12/10/22 Nexavar 400 mg PO DAILY 12/10/22 12/10/22 Previous Rx's ?Medication ?Instructions ?Recorded cyclobenzaprine 5 mg tablet 5 mg PO TID PRN muscle spasm #10 08/17/23 tabs lidocaine 5 % topical patch 1 patch topical DAILY #15 ea 08/17/23 ketorolac 10 mg tablet 10 mg PO TID PRN pain 5 days #15 06/30/24 tabs lidocaine 5 % topical patch 1 patch topical DAILY PRN pain #30 06/30/24 (Lidoderm) ea amoxicillin 875 mg-potassium 1 tab PO BID #14 tabs 10/03/24 clavulanate 125 mg tablet albuterol sulfate 90 mcg/actuation 2 puff inhalation Q4-6H PRN 07/02/25 aerosol inhaler (Ventolin HFA) bronchospasm #8.5 grams benzonatate 100 mg capsule 100 mg PO BID PRN cough #14 caps 07/03/25 prednisone 20 mg tablet 40 mg (2 x 20 mg) PO DAILY 5 days 07/03/25 #10 tabs prednisone 10 mg tablet See Rx Instructions .Route 07/25/25 .COMPLEX #15 tabs Allergies Allergy/AdvReac Type Severity Reaction Status Date / Time No Known Allergies (No Known Allergy Verified 07/25/25 12:23 Allergies*) Review of Systems Review of Systems: As per HPI Yes all other systems are reviewed and are negative Constitutional: Constitutional: Reports as per HPI [facility] Past Medical History Medical History Sickle cell trait Benign tumor Surgical History S/P laparoscopic cholecystectomy Hx of cystoscopy Hx of section Social History Social History Household Members: Family Housing: Apartment Alcohol intake: never Patient Tobacco Use Status: Never used Tobacco service: No Current occupational status: unemployed Physical Exam ED Vital Signs: Vital Signs - 24 hr 07/25/25 12:22 07/25/25 12:29 Temperature 97.0 F 97.0 F Pulse Rate 101 H 101 H Respiratory Rate 18 18 Blood Pressure 112/74 112/74 Pulse Oximetry 100 100 Oxygen Delivery Method Room Air Room Air BMI result Body Mass Index 23.7 Const General: cooperative, healthy appearing and no acute distress Orientation/consciousness: oriented to person, oriented to place, oriented to time and patient oriented x3 Limitations: no limitations HENMT Head: Yes normocephalic and Yes atraumatic Ears: external ears normal General nose exam: Normal external nose present Face and sinus: Yes face symmetric Mouth: Normal oral and palatal mucosa present, lip normal, tongue normal, oropharynx normal and moist mucous membranes Throat: Yes uvula midline and No uvular edema Eyes Pupils: Equal, round and reactive pupils present Neck Neck: Yes normal visual inspection and Yes supple Chest Other: fine maculopapular erythematous rash to chest, mainly around axillary area Resp Effort & Inspection: normal respiratory effort and able to speak in complete sentences Auscultation: clear to auscultation bilaterally Cardio Rate: regular rate Rhythm: regular rhythm Heart sounds: S1 normal heart sound present and S2 normal heart sound present GI Other: fine maculopapular erythematous rash to abdomen Palpation (GI): Soft to palpation and nontender Auscultation: normoactive bowel sounds General: Yes no CVA tenderness Back/Spine/Pelvis Back: no CVA tenderness Skin General skin exam: elasticity normal and turgor normal Neuro General: oriented to person, oriented to place, oriented to time, patient oriented x3, moves all extremities, no focal motor deficits and CN's II-XI intact bilaterally Cranial nerves: Yes Equal, round and reactive pupils present Cognition (Neuro): normal cognition Extrem Other: No rash to extremities, palms, or soles General: Yes full ROM, Yes no pedal edema and Yes no calf tenderness Psych Mental Status: mental status grossly normal Affect: normal affect Thought process: Normal thought process present Medical Decision Making Medical Decision Making [facility] Narrative: Patient is a 35-year-old Malaysian speaking female presenting to the ED with complaint of erythematous rash to abdomen and chest since Saturday. On exam patient is awake, A+Ox3, VS WNL, afebrile, normal neurological exam without focal deficits, physical exam findings as above. Given reported symptoms and physical exam findings, initial differential includes but is not limited to contact dermatitis, atopic dermatitis, viral exanthem. No red flag findings concerning for TEN/SJS, DRESS, TTP/DIC, necrotizing fasciitis, meningococcemia, SSSS, TSS, anaphylaxis. Will treat with tapering course of prednisone, advised discontinued use of benadryl and recommended Claritin or Zyrtec instead, also adding famotidine. Return precautions discussed. Patient verbalized understanding of and agreement with plan. In-person interpreter for the deaf was utilized for all interactions, assessments, and discussions. Differential Diagnosis Differential Diagnoses: The differential diagnosis associated with the presentation includes As per [facility] Admission/Observation Consideration of admission/observation: Escalation of care including admission/observation considered Patient would have been admitted to the hospital and transferred to appropriate facility had their clinical presentation warranted hospital admission. External Record Review External record reviewed: Inpatient record, Office record and Outpatient record Prescription Management I considered prescription management with: Other Discharge Plan Discharge Clinical Impression: Rash and nonspecific skin eruption Patient Disposition: Home, Self-Care Instructions: Contact Dermatitis (DC), Acute Rash (ED) Additional Instructions: You were evaluated in the emergency department today for a rash. Your evaluation did not reveal evidence of conditions requiring emergent medical treatment. You are being prescribed a tapering dose of a steroid called prednisone to decrease inflammation. We also recommend that you take a daily antihistamine such as loratadine (Claritin) or cetirizine (Zyrtec). You can also add over the counter famotidine (Pepcid) which is a different type of antihistamine. You can apply a thick unscented lotion to the affected areas such as Eucerine or Vanicream several times daily. Follow up with your primary care provider this week. If your symptoms do not improve, follow up with a machine hand. Return to the emergency department if you develop difficulty breathing or shortness of breath, swelling to lips, tongue, fever, rash inside your mouth or to your palms/soles or any other concerning symptoms. Prescriptions: New prednisone 10 mg tablet See Rx Instructions .ROUTE .COMPLEX Qty: 15 0RF Rx Instructions: 50mg (5 tabs) x1 day, then 40 mg (4 tabs) x1 day, then 30 mg (3 tabs) x1 day, then 20 mg (2 tabs) times 1 day, then 10 mg (1 tab) x1 day No Action Nexavar 400 mg PO DAILY Patient Comments: medication prescribed by Kate Mirantonio cyclobenzaprine 5 mg tablet 5 mg PO TID PRN (Reason: muscle spasm) Qty: 10 0RF lidocaine 5 % adhesive patch,medicated 1 patch topical DAILY Qty: 15 0RF Rx Instructions: leave on most painful area for up to 12 hrs ketorolac 10 mg tablet 10 mg PO TID PRN (Reason: pain) 5 Days Qty: 15 0RF lidocaine [Lidoderm] 5 % adhesive patch,medicated 1 patch topical DAILY MDD remove after 12 hours PRN (Reason: pain) Qty: 30 0RF Rx Instructions: leave on most painful area for up to 12 hrs albuterol sulfate [Ventolin HFA] 90 mcg/actuation HFA aerosol inhaler 2 puff inhalation Q4-6H PRN (Reason: bronchospasm) Qty: 8.5 0RF prednisone 20 mg tablet 40 mg PO DAILY 5 Days Qty: 10 0RF benzonatate 100 mg capsule 100 mg PO BID PRN (Reason: cough) Qty: 14 0RF amoxicillin-pot clavulanate 875-125 mg tablet 1 tab PO BID Qty: 14 0RF Interventions: ED Discharge Assessment Last Done: 07/25/25 12:29 Print Language: Malaysian
--- OUTSIDE RECORDS SUMMARY | 2025-07-25 12:45 | XMS_ITS | Encounter Summary ---
Author Organization [facility] Address [address] [facility] [address] [place] [address] Phone Care Team Providers Care Fisheries Director Name Role Phone Name, Luis Eduardo NÚÑEZ Primary Care Provider [phone] Taryn De La Garza Unavailable [phone] Yanira Saez RN Unavailable May Howard RN Unavailable JOE [email or web address] Bell Small MD Unavailable [phone] Priya Dee RN Unavailable [phone] Chaya GonzalesSW Unavailable [phone] Encounter Details Date Type Department Care Team (Late st Contact Info) Description 07/24/2023 Procedure Pass [facility] Echocardiography [address] [place] [address] Social History Tobacco Use Types Packs/Day Years [...] on filedocumented in this encounter Care Teams Fisheries Director Relationship Specialty Start Date End Date Name, MD Luis Eduardo [address] [place] [address] PCP - General Geriatric Psychiatry 03/29/21 Taryn De La Garza, [facility] 35 [place] [address] [email or web address] Alumnae Secretary Oncology 08/09/20 02/02/24 Yanira Saez RN [address] [place] [address] EDGARDO@[email or web address] Nurse Navigator 08/19/20 May Howard RN [address] [place] [address] HASEEB@[facility] Nurse Navigator 03/31/21 Bell Small MD [address] [place] [address] Neda@[facility] Medical Oncology 01/03/22 Priya Dee RN [address] [place] [phone] BRAYAN@[facility] Primary Infusion Nurse 08/07/23 Chaya Gonzales, [address] [address] [email or web address] Alumnae Secretary Oncology 02/03/24 03/31/24 documented as of this encounter Additional Source Comments The information contained in this document represents components of the legal health record. It is not the complete legal health record.[facility]
--- OUTSIDE RECORDS SUMMARY | 2025-07-25 12:45 | XMS_ITS | Encounter Summary ---
Author Organization [employer] Address [address] [place] [address] 7 [place] [address] Care Team Providers Care Veterinary Parasitologist Name Role Phone Name, Luis Eduardo NÚÑEZ Primary Care Provider Encounter Details Date Type Department Care Team (Latest Contact Info) Description 07/14/2019 Abstract [facility] CONVERSIONS Dental, Provider, DDS Social History Tobacco [...] on filedocumented in this encounter Care Teams Veterinary Parasitologist Relationship Specialty Start Date End Date Name, MD Luis Eduardo [address] [place] [address] PCP - General Family Medicine 11/04/18 documented as of this encounter
--- OUTSIDE RECORDS SUMMARY | 2025-07-25 12:45 | XMS_ITS | Encounter Summary ---
Author Organization [facility] Address [address] [facility] [address] [place] [address] Phone Care Team Providers Care Publicist Name Role Phone Name, Luis Eduardo NÚÑEZ Primary Care Provider [phone] Taryn De La Garza Unavailable [phone] Yanira Saez RN Unavailable May Howard RN Unavailable JOE [email or web address] Bell Small MD Unavailable [phone] Priya Dee RN Unavailable [phone] Chaya Gonzales DIRECTOR FAMILY Unavailable [phone] Encounter Details Date Type Department Care Team (Late st Contact Info) Description 05/28/2018 Procedure Pass [facility] CT Imaging, [place] [address] [place] [address] Social History Tobacco Use Types Packs/Day Years [...] documented as of this encounter Care Teams Publicist Relationship Specialty Start Date End Date Name, MD Luis Eduardo [address] [place] [address] PCP - General Geriatric Psychiatry 03/29/21 Taryn De La Garza, [facility] [address] [place] [address] [email or web address] Sheet Metal Shop Helper Oncology 08/09/20 02/02/24 Yanira Saez, [address] [place] [address] EDGARDO@[facility] Nurse Navigator 08/19/20 May Howard RN [address] [place] [phone] HASEEB@[facility] Nurse Navigator 03/31/21 Bell Small MD [address] [place] [address] Neda@[facility] Medical Oncology 01/03/22 Priya Dee RN [address] [place] [address] BRAYAN@[facility] Primary Infusion Nurse 08/07/23 Chaya Gonzales, [address] [address] [email or web address] Sheet Metal Shop Helper Oncology 02/03/24 03/31/24 documented as of this encounter Additional Source Comments The information contained in this document represents components of the legal health record. It is not the complete legal health record.[facility]
--- OUTSIDE RECORDS SUMMARY | 2025-07-25 12:45 | XMS_ITS | Encounter Summary ---
Author Organization [facility] Address [address] [facility] [address] [place] [address] Phone Care Team Providers Care Offal Icer Poultry Name Role Phone Name, Luis Eduardo NÚÑEZ Primary Care Provider [phone] Taryn De La Garza Unavailable [phone] Yanira Saez RN Unavailable May Howard RN Unavailable JOE [email or web address] Bell Small MD Unavailable [phone] Priya Dee RN Unavailable [phone] Chaya Gonzales Unavailable [phone] Encounter Details Date Type Department Care Team (Late st Contact Info) Description 08/07/2023 Procedure Pass [facility] Imaging Department, [facility] [place], MRI [address] [address] Social History Tobacco Use Types Packs/Day Years [...] on filedocumented in this encounter Care Teams Offal Icer Poultry Relationship Specialty Start Date End Date Name, MD Luis Eduardo [address] [place] [address] PCP - General Geriatric Psychiatry 03/29/21 Taryn De La Garza, [facility] [address] [place] [address] Richard@[email or web address] Director Digital Advertising Oncology 08/09/20 02/02/24 Yanira Saez RN [address] [place] [address] EDGARDO@[email or web address] Nurse Navigator 08/19/20 May Howard RN [address] [place] [address] HASEEB@[facility] Nurse Navigator 03/31/21 Bell Small MD [address] [place] [phone] Neda@[facility] Medical Oncology 01/03/22 Priya Dee RN [address] [place] [address] BRAYAN@[email or web address] Primary Infusion Nurse 08/07/23 Chaya Gonzales, [address] [address] [email or web address] Director Digital Advertising Oncology 02/03/24 03/31/24 documented as of this encounter Additional Source Comments The information contained in this document represents components of the legal health record. It is not the complete legal health record.[facility]
--- OUTSIDE RECORDS SUMMARY | 2025-07-25 12:45 | XMS_ITS | Encounter Summary ---
Author Organization [facility] Address [address] [facility] [address] [place] [address] Phone Care Team Providers Care Lace Tearing Supervisor Name Role Phone Name, Luis Eduardo NÚÑEZ Primary Care Provider [phone] Taryn De La Garza Unavailable [phone] Yanira Saez RN Unavailable May Howard RN Unavailable JOE [email or web address] Bell Small MD Unavailable [phone] Priya Dee RN Unavailable [phone] Chaya GonzalesSW Unavailable [phone] Encounter Details Date Type Department Care Team (Late st Contact Info) Description 12/28/2020 Procedure Pass [facility] Imaging Department, [facility] [place], MRI [address] [facility], Floor [address] [place] [address] Social History Tobacco Use Types Packs/Day Years [...] on filedocumented in this encounter Care Teams Lace Tearing Supervisor Relationship Specialty Start Date End Date Name, MD Luis Eduardo [address] [place] [address] PCP - General Geriatric Psychiatry 03/29/21 Taryn De La Garza, [facility] [address] [place] [address] [email or web address] Wood Filler Oncology 08/09/20 02/02/24 Yanira Saez, AV[address]IL [address] [place] [address] EDGARDO@[facility] Nurse Navigator 08/19/20 May Howard RN [address] [place] [address] HASEEB@[facility] Nurse Navigator 03/31/21 Bell Small MD [address] [place] [address] Neda@[facility] Medical Oncology 01/03/22 Priya Dee RN [address] [place] [phone] BRAYAN@[facility] Primary Infusion Nurse 08/07/23 Chaya Gonzales, [address] [address] [email or web address] Wood Filler Oncology 02/03/24 03/31/24 documented as of this encounter Additional Source Comments The information contained in this document represents components of the legal health record. It is not the complete legal health record.[facility]
--- OUTSIDE RECORDS SUMMARY | 2025-07-25 12:45 | XMS_ITS | Encounter Summary ---
Author Organization [employer] Address [address] [place] [address] 7 [place] [address] Care Team Providers Care Paper Bag Machine Operator Name Role Phone Name, Luis Eduardo NÚÑEZ Primary Care Provider [phone] Encounter Details Date Type Department Care Team ([facility] st Contact Info) Description 10/10/2022 Abstract [facility] [address] [place] [address] Provider, MD Mirtha Social History Tobacco Use Types Packs/Day Years [...] on filedocumented in this encounter Care Teams Paper Bag Machine Operator Relationship Specialty Start Date End Date Name, MD Luis Eduardo [address] [place], [place] [id number] PCP - General Family Medicine 11/04/18 documented as of this encounter
--- OUTSIDE RECORDS SUMMARY | 2025-07-25 12:45 | XMS_ITS | Encounter Summary ---
Author Organization [facility] Address [address] [facility] [address] [place] [address] Phone Care Team Providers Care Supervisor Commissary Production Name Role Phone Name, Luis Eduardo NÚÑEZ Primary Care Provider [phone] Taryn De La Garza Unavailable [phone] Yanira Saez RN Unavailable May Howard RN Unavailable JOE [email or web address].[facility] Bell Small MD Unavailable [phone] Priya Dee RN Unavailable [phone] Chaya GonzalesSW Unavailable [phone] Encounter Details Date Type Department Care Team (Late st Contact Info) Description 04/05/2021 Procedure Pass Oriana [facility]ank [facility] [place] MRI [address] [address] Social History Tobacco Use Types Packs/Day Years [...] filedocumented in this encounter Care Teams Supervisor Commissary Production Relationship Specialty Start Date End Date Name, MD Luis Eduardo [address] [place] [address] PCP - General Geriatric Psychiatry 03/29/21 Taryn De La Garza, [facility] [address] [place] [address] [email or web address] Production Shift Supervisor Oncology 08/09/20 02/02/24 Yanira Saez, AVRIL [address] [place] [address] EDGARDO@[facility] Nurse Navigator 08/19/20 May Howard RN [address] [place] [address] [email or web address] Nurse Navigator 03/31/21 Bell Small MD [address] [place] [address] Neda@[email or web address] Medical Oncology 01/03/22 Priya Dee RN 450 [place] [address] BRAYAN@[facility] Primary Infusion Nurse 08/07/23 Chaya Gonzales, [address] [address] [email or web address] Production Shift Supervisor Oncology 02/03/24 03/31/24 documented as of this encounter Additional Source Comments The information contained in this document represents components of the legal health record. It is not the complete legal health record.[facility]
--- OUTSIDE RECORDS SUMMARY | 2025-07-25 12:45 | XMS_ITS | Encounter Summary ---
Author Organization [facility] Address [address] [facility] [address] [place] [address] Phone Care Team Providers Care Mapping Specialist Name Role Phone Name, Luis Eduardo NÚÑEZ Primary Care Provider [phone] Taryn De La Garza Unavailable [phone] Yanira Saez RN Unavailable May Howard RN Unavailable JOE [email or web address] Bell Small MD Unavailable [phone] Priya Dee RN Unavailable [phone] Chaya Gonzales PARTS COUNTERPERSON Unavailable [phone] Encounter Details Date Type Department Care Team (Late st Contact Info) Description 10/02/2021 Procedure Pass [facility] MR Imaging, [place] [address] [place] [address] Social History Tobacco Use Types Packs/Day Years [...] on filedocumented in this encounter Care Teams Mapping Specialist Relationship Specialty Start Date End Date Name, MD Luis Eduardo [address] [place] [address] PCP - General Geriatric Psychiatry 03/29/21 Taryn De La Garza, [facility] [address] [place] [address] Richard@[email or web address] Nodulizer Oncology 08/09/20 02/02/24 Yanira Saez, AV[address]IL [address] [place] [address] EDGARDO@[facility] Nurse Navigator 08/19/20 May Howard RN [address] [place] [address] [email or web address]@[email or web address] Nurse Navigator 03/31/21 Bell Small MD [address] [place] [address] Neda@[facility] Medical Oncology 01/03/22 Priya Dee, RN [address] [place] [address] BRAYAN@[facility] Primary Infusion Nurse 08/07/23 Chaya Gonzales, [address] [address] [email or web address] Nodulizer Oncology 02/03/24 03/31/24 documented as of this encounter Additional Source Comments The information contained in this document represents components of the legal health record. It is not the complete legal health record.[facility]
--- OUTSIDE RECORDS SUMMARY | 2025-07-25 12:45 | XMS_ITS | Encounter Summary ---
Author Organization [facility] Address [address] [facility] [address] [place] [address] Phone Care Team Providers Care Sawmill Or Timber Yard Worker Name Role Phone Name, Luis Eduardo NÚÑEZ Primary Care Provider [phone] Taryn De La Garza Unavailable [phone] Yanira Saez RN Unavailable May Howard RN Unavailable JOE [email or web address] Bell Small MD Unavailable [phone] Priya Dee RN Unavailable [phone] Chaya Gonzales PLY SPLICER Unavailable [phone] Encounter Details Date Type Department Care Team (Late st Contact Info) Description 07/11/2022 Procedure Pass Oriana Lank [facility] [place] [address] [address] Social History Tobacco Use Types Packs/Day Years [...] on filedocumented in this encounter Care Teams Sawmill Or Timber Yard Worker Relationship Specialty Start Date End Date Name, MD Luis Eduardo [address] [place] [address] PCP - General Geriatric Psychiatry 03/29/21 Taryn De La Garza, [facility] 35 [place] [address] [email or web address] Behavioral Sciences Instructor Oncology 08/09/20 02/02/24 Yanira Saez, AVRIL [address] [place] [address] EDGARDO@[email or web address] Nurse Navigator 08/19/20 May Howard RN [address] [place] [address] HASEEB@[email or web address] Nurse Navigator 03/31/21 Bell Small MD [address] [place] [address] Ndea@[email or web address] Medical Oncology 01/03/22 Priya Dee RN 450 [place] [address] BRAYAN@[email or web address] Primary Infusion Nurse 08/07/23 Chaya Gonzales, [address] [address] [email or web address] Behavioral Sciences Instructor Oncology 02/03/24 03/31/24 documented as of this encounter Additional Source Comments The information contained in this document represents components of the legal health record. It is not the complete legal health record.[facility]
--- OUTSIDE RECORDS SUMMARY | 2025-07-25 12:45 | XMS_ITS | Encounter Summary ---
Author Organization [facility] Address [address] [facility] [address] [place] [address] Phone Care Team Providers Care Jewelry Engraver Name Role Phone Name, Luis Eduardo NÚÑEZ Primary Care Provider [phone] Taryn De La Garza Unavailable [phone] Yanira Saez RN Unavailable Mya Howard RN Unavailable JOE [email or web address] Bell Small MD Unavailable [phone] Priya Dee RN Unavailable [phone] Chaya Gonzales PUBLIC HEALTH TEACHER Unavailable [phone] Encounter Details Date Type Department Care Team (Late st Contact Info) Description 11/16/2021 Procedure Pass [facility] Periop [address] [place] [address] Social History Tobacco Use Types Packs/Day Years [...] on filedocumented in this encounter Care Teams Jewelry Engraver Relationship Specialty Start Date End Date Name, MD Luis Eduardo [address] [place] [phone] PCP - General Geriatric Psychiatry 03/29/21 Taryn De La Garza, [facility] 35 [place] [address] [email or web address] Machine Hand Oncology 08/09/20 02/02/24 Yanira Saez, AV[address]IL [address] [place] [address] EDGARDO@[facility] Nurse Navigator 08/19/20 May Howard RN [address] [place] [address] [email or web address]@[email or web address] Nurse Navigator 03/31/21 Bell Small MD [address] [place] [address] Neda@[facility] Medical Oncology 01/03/22 Priya Dee, RN 450 [place] [address] BRAYAN@[facility] Primary Infusion Nurse 08/07/23 Chaya Gonzales, [address] [address] [email or web address] Machine Hand Oncology 02/03/24 03/31/24 documented as of this encounter Additional Source Comments The information contained in this document represents components of the legal health record. It is not the complete legal health record.[facility]
--- OUTSIDE RECORDS SUMMARY | 2025-07-25 12:45 | XMS_ITS | Clinical Summary ---
Author Organization [facility] Address [address] [facility] [address] [place] [address] Phone Care Team Providers Care Accounting Professional Name Role Phone Name, Luis Eduardo NÚÑEZ Primary Care Provider [phone] Yanira Saez RN Unavailable May Howard RN Unavailable JOE WRIGHT@[email or web address].[email or web address] Bell Small MD Unavailable [phone] Priya Dee RN Unavailable [phone] Allergies No known active allergies Medications acetaminophen [...] First Doxil: palpitations and facial flushing *Needs Rf Technician* Nexavar 200mg tab has been approved until 11/02/2022 with case# [id number]. Copay is $0 at [facility] pharmacy. Problem Noted Date Diagnosed Date Seasonal [...] for restaging evaluation. I will be leaving [facility] and she will be scheduled in the [...] Tano DR, Daryl M, Nasra CR, S, lOaf L, Maria Eugenia RG. Activity of Sorafenib [...] ACO C3 ACO C3 ACO Care Teams Accounting Professional Relationship Specialty Start Date End Date Name, MD Luis Eduardo [address] [place] [address] PCP - General Geriatric Psychiatry 03/29/21 Yanira Saez RN [address] [place] [address] EDGARDO@[email or web address] Nurse Navigator 08/19/20 May Howard RN [address] [place] [address] HASEEB@[facility] Nurse Navigator 03/31/21 Bell Small MD [address] [place] [address] Neda@[facility] Medical Oncology 01/03/22 Priya Dee RN [address] [place] [address] BRAYAN@[email or web address] Primary Infusion Nurse 08/07/23 Additional Source Comments The information contained in this document represents components of the legal health record. It is not the complete legal health record.[facility]
--- OUTSIDE RECORDS SUMMARY | 2025-07-25 12:45 | XMS_ITS | Encounter Summary ---
Author Organization [facility] Address [address] [facility] [address] [place] [address] Phone Care Team Providers Care Shipping Room Supervisor Name Role Phone Name, uLis Eduardo NÚÑEZ Primary Care Provider [phone] Taryn De La Garza Unavailable [phone] Yanira Saez RN Unavailable May Howard RN Unavailable JOE [email or web address] Bell Small MD Unavailable [phone] Priya Dee RN Unavailable [phone] Chaya Gonzales ARBOREAL SCIENTIST Unavailable [phone] Encounter Details Date Type Department Care Team (Late st Contact Info) Description 01/03/2022 Procedure Pass Oriana Lank [facility] [place] MRI [address] [address] Social History Tobacco Use Types Packs/Day Years [...] on filedocumented in this encounter Care Teams Shipping Room Supervisor Relationship Specialty Start Date End Date Name, MD Luis Eduardo [address] [place] [address] PCP - General Geriatric Psychiatry 03/29/21 Taryn De La Garza, [facility] 35 [place] [address] Richard@[email or web address] Platform Material Handling Supervisor Oncology 08/09/20 02/02/24 Yanira Saez, AVRIL [address] [place] [address] EDGARDO@[email or web address] Nurse Navigator 08/19/20 May Howard RN [address] [place] [address] [email or web address]@[email or web address] Nurse Navigator 03/31/21 Bell Small MD [address] [place] [address] Neda@[email or web address] Medical Oncology 01/03/22 Priya Dee RN 450 [place] [address] BRAYAN@[facility] Primary Infusion Nurse 08/07/23 Chaya Gonzales, [address] [address] [email or web address] Platform Material Handling Supervisor Oncology 02/03/24 03/31/24 documented as of this encounter Additional Source Comments The information contained in this document represents components of the legal health record. It is not the complete legal health record.[facility]
--- OUTSIDE RECORDS SUMMARY | 2025-07-25 12:45 | XMS_ITS | Encounter Summary ---
Author Organization [facility] Address [address] [facility] [address] [place] [address] Phone Care Team Providers Care Sexual Health Physician Name Role Phone Name, Luis Eduardo NÚÑEZ Primary Care Provider Taryn De La Garza Unavailable [phone] Yanira Saez RN Unavailable May Howard RN Unavailable JOE [email or web address] Bell Small MD Unavailable [phone] Priya Dee RN Unavailable [phone] Chaya Gonzales INSIDE SALES DIRECTOR Unavailable [phone] Encounter Details Date Type Department Care Team (Late st Contact Info) Description 01/09/2023 Procedure Pass Oriana Lank [facility] [place] MRI [address] [address] Social History Tobacco Use Types Packs/Day Years [...] on filedocumented in this encounter Care Teams Sexual Health Physician Relationship Specialty Start Date End Date Name, MD Luis Eduardo [address] [place] [address] PCP - General Geriatric Psychiatry 03/29/21 Taryn De La Garza, [facility] 35 [place] [address] [email or web address] Mercury Recoverer Oncology 08/09/20 02/02/24 Yanira Saez, AVRIL [address] [place] [address] EDGARDO@[facility] Nurse Navigator 08/19/20 May Howard RN [address] [place] [address] [email or web address]@[email or web address] Nurse Navigator 03/31/21 Bell Small MD [address] [place] [address] Neda@[facility] Medical Oncology 01/03/22 Priya Dee RN 450 [place] [address] BRAYAN@[facility] Primary Infusion Nurse 08/07/23 Chaya Gonzales, [address] [address] [email or web address] Mercury Recoverer Oncology 02/03/24 03/31/24 documented as of this encounter Additional Source Comments The information contained in this document represents components of the legal health record. It is not the complete legal health record.[facility]
--- OUTSIDE RECORDS SUMMARY | 2025-07-25 12:45 | XMS_ITS | Clinical Summary ---
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 Inject into upper leg. Call 911 after use. 1 each 1 4 Active Ventolin HFA 108 (90 Base) MCG/ACT inhaler INHALE 2 PUFFS INTO THE LUNGS EVERY 4 TO 6 HOURS NEEDED FOR BRONCHOSPASM. 5 Active amoxicillin-cla vulanate (Augmentin) 875-125 MG tablet Take 1 tablet by mouth 2 times daily. 4 Active benzonatate (Tessalon) 100 MG capsule TAKE 1 CAPSULE BY MOUTH 2 TIMES A DAY NEEDED FOR COUGH *NOT COVERED* 5 Active predniSONE (Deltasone) 20 MG tablet Take 2 tablets by mouth Once per day. 5 Active hydroquinone 4 % creamIndication s:Skin macule Apply topically 2 times daily. 28.35 g 1 5 07/09/20 26 Active nabumetone (Relafen) 500 MG tablet Take 1 tablet (500 mg) by mouth 2 times daily. 60 tablet 3 4 07/24/20 25 predniSONE (Deltasone) 20 MG tablet Take 2 tablets (40 mg) by mouth Once per day for 5 days. 10 tablet 5 07/14/20 25 Active Problems Problem Noted Date Diagnosed Date [...] for restaging evaluation. 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 Encounters Date Type Department Care Team Description 07/09/2025 2:45 PM EDT Office Visit [address] [address] Name, MD Luis Eduardo Aggressive fibromatosis (Primary Dx); Tachycardia, unspecified; Subacute cough; Wheezing; Vaccine refused by patient; Screening for cholesterol level; Skin macule 07/09/2025 Refill [facility] [address] [place] [address] NameLuis Eduardo MD Skin macule 07/09/2025 Travel 07/08/2025 Telephone [facility] [address] [place] [address] Luis Eduardo Deleon MD Chart Prep 07/02/2025 Orders Only [facility] External Provider, [facility] 07/01/2025 Patient Outreach [facility] [address] [place] [address] Luis Eduardo Deleon MD Pre-visit Planning (SDOH was already completed) from Last 3 Months Social History Tobacco Use Types Packs/Day Years Used Date Smoking Tobacco: Never Smokeless Tobacco: Never Tobacco Cessation:Counseling Given: Not Answered Alcohol Use Standard Drinks/Week Comments Never 0 (1 standard drink = 0.6 oz pur e alcohol) Depression Answer Date Recorded Patient Health Questionnaire-9 Score 5 07/09/2025 Patient Health Questionnaire-9 Score 5 07/09/2025 Last PHQ-9: Questionnaire Data Not on file 0 07/09/2025 Housing Stability Answer Date Recorded What is [...] to shut off services in your home? Yes 07/09/2025 Depression Answer Date Recorded Patient Health Questionnaire-2 Score 2 07/09/2025 Internet Access Answer Date Recorded Internet Access Q1 Yes 10/27/2024 Internet Access Q2 Not on file 10/27/2024 Comments No Sex and Gender Information Value Date Recorded Sex Assigned at Female 09/03/2022 10:32 AM EDT Legal Sex Female 10:32 AM EDT Gender Identity Female 09/03/2022 10:32 AM EDT Sexual Orientation Straight 09/03/2022 10 :32 AM EDT Last Filed Vital Signs Vital Sign Reading Time Taken Comments Blood Pressure 118/82 07/09/2025 2:41 PM EDT Pulse 119 07/09/2025 2:41 PM EDT Temperature 36.2 C (97.1 F) 07/09/2025 2:41 PM EDT Respiratory Rate 18 07/09/2025 2:41 PM EDT Oxygen Saturation 97% 07/09/2025 2:41 PM EDT Inhaled Oxygen Concentration - - Weight 61.1 kg (134 lb 9.6 oz) 07/09/2025 2:41 P M EDT Height 157.5 cm (5' 2 ) 07/09/2025 2:41 PM EDT Body Mass Index 24.62 07/09/2025 2:41 PM EDT Plan of Treatment Health Maintenance Due Date Last Done Comments HIV Screening 1989 HIB Vaccines (1 of 1 - Risk 1-dose series) 10/09/1990 Meningococcal Vaccine (1 - Risk 2-dose series) 1991 Meningococcal B Vaccine (1 o f 5 - Increased Risk) 1999 Family Planning (PISQ) 2004 HPV Vaccines (1 - 3-dose series) 2004 Hepatitis C Screening 2007 DTaP/Tdap/Td Vaccines (1 - Tdap) 2008 Hepatitis B Vaccines (1 of 3 - 19+ 3-dose series) 2008 Pneumococcal Vaccine: Pediatrics (0 to 5 Years) and At-Risk Patients (6 to 49) Years (1 of 2 - PCV) 2008 COVID-19 Vaccine (1 - 2023-2 5 season) 2025 Influenza Vaccine (#1) 2025 Pap Smear 10/10/2025 10/10/2022, 06/24/2019 Alcohol/Substance Use Screening 07/09/2026 07/09/2025 Depression Screening 07/09/2026 07/09/2025, 07/09/2025 Disability Screening 07/09/2026 07/09/2025 SDOH Screening 07/09/2026 07/09/2025 Tobacco Screening 07/09/2026 07/09/2025 Cervical Cancer Screening 10/10/2027 HPV/Cotest 10/10/2027 10/10/2022, [...] Procedure Name Priority Date/Time Associated Diagnosis Comments TSH W/REFLEX TO FT4 Routine 07/16/2025 9 :58 AM EDT Tachycardia, unspecified LIPID PANEL, STANDARD Routine 07/16/2025 9:58 AM EDT Screening for cholesterol level CTA CHEST PE PROTOCAL Routine 07/02/2025 8:15 PM EDT D DIMER HIGH SENSITIVITY Routine 07/02/2025 4:38 PM EDT HCG, TOTAL, QN Routine 07/02/2025 2:38 PM EDT HIGH SENSITIVITY TROPONIN I Routine 07/02/2025 2:38 PM EDT MAGNESIUM Routine 07/02/2025 2:38 PM EDT COMPREHENSIVE METABOLIC PANEL Routine 07/02/2025 2:38 PM EDT CBC WITH AUTO DIFFERENTIAL Routine 07/02/2025 2:38 PM EDT COVID-19 ID NOW ([employer]) Routine 07/02/2025 1:01 PM EDT INFLUENZA A B2 ID NOW ([employer]) Routine 07/02/2025 1:01 PM EDT XR CHEST 2 VIEWS Routine 07/02/2025 12:0 8 PM EDT THINPREP PAP AND HPV MRNA E6/E7 Routine 10/10/2022 11:15 AM EST from Last 3 Months or Most Recently Relevant to Health Maintenance Results * TSH W/Reflex to FT4 (07/16/2025 9:58 AM EDT) TSH reflex Free T4 0.86 0.32 - 4.0 uIU/mL [facility] Blood Venous blood specimen / Unknown 07/16/2025 9:58 AM EDT 07/16/2025 11:24 AM EDT us Luis Eduardo Name MD LAB BLOOD ORDERABLES Final Resul t [facility] [address] [place] [phone] * (ABNORMAL) Lipid Panel, Standard (07/16/2025 9:58 AM EDT) Triglycerides 190(H) <150 mg/dL [facility] Comment:Desirable Triglyceri de: less than 150 mg/dLBorderline High Triglyceride 150-199 mg/dLHigh Triglyceride: 200-499 mg/dLVery High Triglyceride: greater than or equal to 5OO mg/dL Cholesterol 190 <200 mg/dL [facility] Comment:Desirable Cholestero l: less than 200 mg/dLBorderline High Cholesterol: 200-239 mg/dLHigh Cholesterol: greater than 239 mg/dL LDL Cholesterol Calculated 109(H) <100 mg/dL [facility] Comment:Desirable LDL: less than 100 mg/dLNear Optimal/Above Optimal LDL: 110- 129 mg/dLBorderline High LDL: 130-159 mg/dLHigh LDL: 160-189 mg/dLVery High LDL: greater than or equal to 190 mg/dL HDL Cholesterol 43 >40 mg/dL [facility] Comment:Desirable HDL: great er than 40 mg/dL Note: This HDL assay may give artificially low results in patients with liver disease. Blood Venous blood specimen / Unknown 07/16/2025 9:58 AM EDT 07/16/2025 11:24 AM EDT us Luis Eduardo Name LAB BLOOD ORDERABLES Final Resul t Performing Organization Address City/State/[facility] Co de Phone Number [facility] [address] [place] [phone] * CTA Chest PE Protocal (07/02/2025 8:15 PM EDT) Anatomical Region Laterality Modality Body, Chest Computed Tomogra phy 07/02/2025 8:15 PM EDT Narrative 07/02/2025 8:16 PM EDT [address] [address] [address] Scan Report Signed Patient: Roxanne Ca MR#: [id number] 5 : 1990 Acct:[id number] Age/Sex: 34 / F ADM Date: 07/02/25 Loc: HO.ED Attending Dr: Ordering Physician: Jeanne Walsh Date of Service: 07/02/25 Procedure(s): CT angio chest PE protocol Accession Number(s): [id number] cc: [facility]; Jeanne Walsh Report Number: [id number]: Total DLP = 145.00 mGy-cm CLINICAL HISTORY: dry cough tachycardic r o PE --- Additional Notes or Special Instructions: elevated dimer CTA chest with 3-D postprocessing Comparison: CR/SR - XR CHEST 2 VIEWS - 07/02/25 13:[address]/MT/SR - CT CHEST ANGIOGRAPHY WITH IV CONTRAST - 06/30/24 08:58 EDT Findings: Study quality is adequate for the diagnosis of pulmonary embolism. No pulmonary embolism. Heart size within normal limits. RV/LV ratio is normal. No calcified coronary artery disease. No aortic dissection or aneurysm. No calcified atherosclerotic disease. No lymphadenopathy. No pulmonary pathology. No pneumothorax or pleural effusion. No acute osseous or soft tissue abnormality. No acute pathology in the imaged portion of the upper abdomen. Status post cholecystectomy. Impression: No pulmonary embolism or other acute findings. 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 Donotuseinterpreter, Image - 07/02/[address] [place] [address] [address] Scan Report Signed Patient: Fletcher Ca#: [id number] 5 : 1990Acct:[id number] Age/Sex: 34 / FADM Date: 07/02/25 Loc: .ED Attending Dr: Ordering Physician: Jeanne Walsh Date of Service: 07/02/25 Procedure(s): CT angio chest PE protocol Accession Number(s): [id number] cc: [facility]; Jeanne Walsh Report Number: [id number]: Total DLP = 145.00 mGy-cm CLINICAL HISTORY: dry cough tachycardic r o PE --- Additional Notes orSpecial Instructions: elevated dimer CTA chest with 3-D postprocessing Comparison: CR/SR - XR CHEST 2 VIEWS - 07/02/25 13:[address]/MT/SR - CT CHEST ANGIOGRAPHY WITH IV CONTRAST - 06/30/24 08:58 EDT Findings: Study quality is adequate for the diagnosis of pulmonary embolism. No pulmonary embolism. Heart size within normal limits. RV/LV ratio is normal. No calcified coronary artery disease. No aortic dissection or aneurysm. No calcified atherosclerotic disease. No lymphadenopathy. No pulmonary pathology. No pneumothorax or pleural effusion. No acute osseous or soft tissue abnormality. No acute pathology in the imaged portion of the upper abdomen. Status post cholecystectomy. Impression: No pulmonary embolism or other acute findings. This document has been electronically signed by: Leann Diop MD on 07/02/2025 20:15:31 Dictated By: Leann Sanchez MD Signed By: <Electronically signed by Leann Sanchez MD in OV> 07/02/252015 DD/ 14 TD/TT: 07/02/252014 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: [facility] External Provider IMG CT PROCEDURES Final Result * D Dimer High Sensitivity (07/02/2025 4:38 PM EDT) Pathologist [facility] D Dimer High Sensitivity 728 NG/ML [facility] Comment:D-DIMER HS REFERENCE RANGENote: Our assay reports D-Dimer Units (D- DU).The cut-off value for venous thromboembolic (VTE) disease is230 ng/mL. This value has a very high negative predictivevalue when the patient has a low to moderate clinicalprobability of VTE.The upper limit of normal is 243 ng/mL. 07/02/2025 4:38 PM EDT 07/02/2025 4:41 PM EDT Generic External Data Provider LAB BLOOD ORDERAB LES Final Result Performing Organization Address [facility] de Phone Number [facility] [address] [place] [address] [phone] * High Sensitivity Troponin I (07/02/2025 2:38 PM EDT) Pathologist [facility] TROPONIN I HIGH SENSITIVITY <2.7 <3.5 - 17.0 ng/L [facility] Comment:The Chambers high sens itivity Troponin-I results should beused in conjunction with other diagnostic information suchas ECG, clinical observations and information, and patientsymptoms to aid in the diagnosis of MO. 07/02/2025 2:38 PM EDT 07/02/2025 2:56 PM EDT Generic External Data Provider LAB BLOOD ORDERAB LES Final Result Performing Organization Address City/[facility]/ZIP Co de Phone Number [facility] [address] [place] [phone] * (ABNORMAL) CBC auto differential (07/02/2025 2:38 PM EDT) White Blood Count 11.2(H) 4.8 - 10.8 X10*3/uL [facility] Red Blood Count 5.20 4.20 - 5.50 X10*6/uL [facility] Hemoglobin 13.0 12.0 - 16.0 g/dl [facility] Hematocrit 37.5 37.0 - 47.0 % [facility] Mean Corpuscular Volume 72.1(L) 80.0 - 98.0 fL [facility] Mean Corpuscular Hemoglobin 25.0(L) 27.0 - 33.0 pg [facility] Mean Corpuscular HGB Conc 34.7 31.0 - 35.0 g/dl [facility] Red Cell Distribution Width 14.6 11.0 - 16.0 % [facility] Platelet Count 277 160 - 400 X10*3/uL [facility] Mean Platelet Volume 10.4 9.4 - 12.3 fL [facility] Neutrophils Percent Auto 81.0(H) 45 - 73 % [facility] Imm Gran Pct Auto 0.4 0.0 - 0.4 % [facility] Lymphocytes Percent Auto 7.3(L) 20 - 40 % [facility] Monocytes Percent Auto 8.3 2 - 11 % [facility] Eosinophils Percent Auto 2.6 0 - 4 % [facility] Basophils Percent Auto 0.4 0 - 2 % [facility] NRBC Pct Auto 0.0 0.0 - 0.2 /100WBC [facility] Neutrophils Absolute Auto 9.0(H) 2.0 - 8.3 x10*3/uL [facility] Imm Gran Abs Auto 0.04(H) 0.00 - 0.03 X10*3/uL [facility] Lymphocytes Absolute Auto 0.8(L) 1.2 - 4.9 X10*3/uL [facility] Monocytes Absolute Auto 0.9 0.1 - 1.2 X10*3/uL [facility] Eosinophils Absolute Auto 0.3 0.0 - 0.4 X10*3/uL [facility] Basophils Absolute Auto 0.1 0.0 - 0.2 X10*3/uL [facility] NRBC Abs Auto 0.000 0.0 - 0.012 X10*3/uL [facility] 07/02/2025 2:38 PM EDT 07/02/2025 2:56 PM EDT us Generic External Data Provider LAB BLOOD ORDERAB LES Final Result Performing Organization Address [facility]/ZIP Co de Phone Number [facility] [address] [place] [phone] * hCG, Total, Quantitative (07/02/2025 2:38 PM EDT) HCG Quantitative <2 mIU/mL [facility] Comment:Weeks post LMP Appro ximate hCG(Last Menstrual Period) Range (mIU/ml)3 - 4 weeks 9 - 1304 - 5 weeks 75 - 2,6005 - 6 weeks 850 - 20,8006 - 7 weeks 4000 - 100,2007 - 12 weeks 11,500 - 289,03322 - 16 weeks 18,300 - 137,94912 - 29 weeks (2nd trimester) 1,400 - 53,09358 - 41 weeks (3rd trimester) 940 - 60,000The Chambers B-hCG assay is used for the early detection ofpregnancy; it cannot be used to diagnose any conditionunrelated to . If a B-hCG level is not supportedby the clinical evidence, results should be confirmed by analternative method (qualitative urine hCG, for example). 07/02/2025 2:38 PM EDT 07/02/2025 2:56 PM EDT us Generic External Data Provider LAB BLOOD ORDERAB LES Final Result Performing Organization Address [facility]/ZIP Co de Phone Number [facility] [address] [place] [phone] * Magnesium (07/02/2025 2:38 PM EDT) Magnesium 1.9 1.6 - 2.6 mg/dL [facility] 07/02/2025 2:38 PM EDT 07/02/2025 2:56 PM EDT us Generic External Data Provider LAB BLOOD ORDERAB LES Final Result [facility] [address] [place] [phone] * (ABNORMAL) Comprehensive Metabolic Panel (07/02/2025 2:38 PM EDT) Sodium 140 135 - 145 mmol/L [facility] Potassium 3.4 3.3 - 5.1 mmol/L [facility] Chloride 109(H) 96 - 108 mmol/L [facility] Carbon Dioxide 23 22 - 29 mmol/L [facility] Anion Gap 11(L) 12 - 20 [facility] Urea Nitrogen (BUN) 10 9 - 16 mg/dL [facility] Creatinine, Serum 0.72 0.5 - 1.4 mg/dL [facility] Creatinine Clr Calc Pharmacy 99.4 [facility] Comment:Provided height and weight: 157.48 cm,69.2 kg.eGFR (calculated from the MDRD study equation) and eCrCl(calculated from the Cockcroft-Gault equation) are based ondifferent parameters and may not yield comparable results.If eCrCl result is absurd, please check patient'sheight/weight. Estimated Glomerular Filt Rate >60 [facility] Comment:Chronic Kidney Disea se: Estimated GFR < 60 mL/min/1.75o9Wzsnel Kidney Disease: Estimated GFR < 15 mL/min/1.73m2 Glucose 90 60 - 115 mg/dL [facility] Calcium 9.1 8.4 - 10.2 mg/dL [facility] Bilirubin, Total 0.5 0.0 - 1.0 mg/dL [facility] Aspartate Amino Transferase 21 5 - 31 U/L [facility] Alanine Aminotransferase 14 0 - 31 U/L [facility] Total Protein 7.6 6.5 - 8.0 g/dL [facility] Albumin Level 4.2 3.5 - 5.0 g/dL [facility] Alkaline Phosphatase 115 39 - 117 U/L [facility] 07/02/2025 2:38 PM EDT 07/02/2025 2:56 PM EDT Generic External Data Provider LAB BLOOD ORDERAB LES Final Result Performing Organization Address [facility]/ZIP Co de Phone Number [facility] [address] [place] [phone] * Influenza A B2 ID NOW ([employer]) (07/02/2025 1:01 PM EDT) IDNOW SERIAL# [id number] [facility] Influenza A Negative Negative [facility] Influenza B2 Negative Negative [facility] Influenza A B2 Note See Note [facility] Comment:The Chambers ID NOW [...] 1:01 PM EDT 07/02/2025 1:03 PM EDT Generic External Data Provider LAB MICROBIOLOGY - GENERAL ORDERABLES Final Result Performing Organization Address [facility]/ZIP Co de Phone Number [facility] [address] [place] [phone] * COVID-19 ID NOW ([facility]) (07/02/2025 1:01 PM EDT) IDNOW SERIAL# [id number] [facility] COVID-19 TEST Negative Negative [facility] COVID-19 NOTE See Note [facility] Comment: Results are for the identification of SARS-CoV2 RNA. TheSARS-CoV2 RNA is generally detectable in respiratory samplesduring the acute phase of infection. Positive results areindicative of the presence of SARS-CoV-2 RNA; clinicalcorrelation with patient history and other diagnosticinformation is necessary to determine patient infectionstatus. Positive results do not rule out bacterial infectionor co- infection with other viruses.Testing facilities within [facility] and itsterritories are required to report [...] use by authorized laboratories.Testing performed on the [employer] NOW utilizing NAAT. 07/02/2025 1:01 PM EDT 07/02/2025 1:03 PM EDT us Generic External Data Provider LAB MOLECULAR KYRA GNOSTICS ORDERABLES Final Result [facility] [address] [place] [phone] * XR Chest 2 Views (07/02/2025 12:08 PM EDT) Anatomical Region Laterality Modality Chest Radiographic Amy ging 07/02/2025 12:0 8 PM EDT Narrative 07/02/2025 1:14 PM EDT [address] [address] XRay Report Signed Patient: Roxanne Ca MR#: [id number] 5 : 1990 Acct:[id number] Age/Sex: 34 / F ADM Date: 07/02/25 Loc: .ED Attending Dr: Ordering Physician: Steve Jeffers Date of Service: 07/02/25 Procedure(s): XR chest 2V Accession Number(s): [id number] cc: [facility]; Steve Jeffers EXAMINATION: XR CHEST CLINICAL [...] 01:11 PM EDT RP Dictated By: Jeff Vears MD Signed By: <Electronically signed by Jfef Veras MD in OV> 07/02/25 1311 DD/ 1208 TD/TT: 07/02/25 1305 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: 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 Note Donotuseinterpreter, Image - 07/02/2025 [place] [address] XRay Report Signed Patient: Florencio CaR#: [id number] 5 : 1990Acct:[id number] Age/Sex: 34 / FADM Date: 07/02/25 Loc: .ED Attending Dr: Ordering Physician: Steve Jeffers Date of Service: 07/02/25 Procedure(s): XR chest 2V Accession Number(s): [id number] cc: [facility]; Steve Jeffers EXAMINATION: XR CHEST CLINICAL [...] 07/02/25 1311 DD/ 1208 TD/TT: 07/02/25 1305 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: [facility] External Provider IMG XR PROCEDURES Edited Result - Final * Thinprep PAP and HPV nRNA E6/E7 (10/10/2022 11:15 AM EST) Clinical Information: None given viavoo LMP: 09/19/22 sifonrt Prev. PAP: NONE GIVEN sifonrt Prev. BX: NONE GIVEN sifonrt SOURCE: None given viavoo Statement Of Adequacy: viavoo Comment: Satisfactory for evaluation. Endocervical/transformation zone component present. Interpretation/ Result: Negative for intraepithelial lesion or malignancy. viavoo Cytotechnologis t: viavoo Comment: MSM, CT(ASCP) CT screening location: [place] [address] (Always Message) viavoo Comment: EXPLANATORY NOTE: The Pap is a [...] HPV nRNA E6/E7 Not Detected Not Detected viavoo Comment: Methodology: Field Assessor-Mediated Amplification This assay detects E6/E7 viral messenger RNA (mRNA) from 14 high-risk HPV types (16,18,31,33,35,39,45,51,52,56,58,59,66,68). Cervical sources are required for HPV testing. If a vaginal source from a patient who has had a total hysterectomy with removal of cervix was submitted, please contact the testing laboratory for alternative testing options. For additional information, please refer to http://education.Selatra/faq/JKZ668y3 (This link if provided for information/ educational purposes only.) 10/10/2022 11:1 5 AM EST 10/11/2022 8:55 AM EST Narrative [facility] - 10/15/2022 9:07 AM EST FASTING: UNKNOWN Elysia Ford CNM LAB PATHOLOGY ORDERABLES Final Result [facility] [address], [place] [address] [employer] [facility] [address], [facility] [place] [phone] from Last 3 Months or Most Recently Relevant to Health Maintenance Insurance Care Teams Metal Refiner Relationship Specialty Start Date End Date Name, MD Luis Eduardo [address] [phone] PCP - General Family Medicine 11/04/18
--- OUTSIDE RECORDS SUMMARY | 2025-07-25 12:45 | XMS_ITS | Encounter Summary ---
Author Organization [employer] Address [address] [facility] 7[address] [place] [address] Care Team Providers Care Group Director Experience Name Role Phone Name, Luis Eduardo NÚÑEZ Primary Care Provider [phone] Reason for Visit * Reason Comments Med Change Request Encounter Details Date Type Department Care Team ([facility] Contact Info) Description 07/09/2025 Refill [facility] MEDICINE [address] [place], [place] [phone] Name, MD Luis Eduardo [address] [place] [address] Skin macule Social History Tobacco Use Types Packs/Day Years [...] your housing situation today? I have rudy alvse 10/27/[address] you li [...] AM EDT documented as of this encounter Functional Status * Over the past 2 weeks, how often have you been bothered by any of the following problems? Question Answer Date of Assessment Author Patient Health Questionnaire -2 Score 2 07/09/2025 3:26 PM EDT Pat Mishra MA * Little interest or pleasure in doing things Answer Date of Assessment Author Several days 07/09/2025 3:26 PM EDT Ivory Mishra MA * Feeling down, depressed, or hopeless Answer Date of Assessment Author Several days 07/09/2025 3:26 PM EDT Ivory Mishra MA * Trouble falling or staying asleep, or sleeping too much Answer Date of Assessment Author Several days 07/09/2025 3:26 PM MARGYT Ivory Mishra MA * Feeling tired or having little energy Answer Date of Assessment Author Several days 07/09/2025 3:26 PM MARGYT Ivory Mishra MA * Poor appetite or overeating Answer Date of Assessment Author Not at all 07/09/2025 3:26 PM Ivory Watts MA * Feeling bad about yourself - or that you are a failure or have let yourself or your family down Answer Date of Assessment Author Several days 07/09/2025 3:26 PM MARGYT Ivory Mishra MA * Trouble concentrating on things, such as reading the newspaper or watching television Answer Date of Assessment Author Not at all 07/09/2025 3:26 PM MARGYT Ivory Mishra MA * Moving or speaking so slowly that other people could have noticed? Or the opposite - being so fidgety or restless that you have been moving around a lot more than usual. Answer Date of Assessment Author Not at all 07/09/2025 3:26 PM Ivory Watts MA * Thoughts that you would be better off or hurting yourself in some way Answer Date of Assessment Author Not at all 07/09/2025 3:26 PM Ivory Watts MA * Patient Health Questionnaire-9 Score Answer Date of Assessment Author 5 07/09/2025 3:26 PM MARGYT Ivory Mishra MA * How difficult have these problems made it for you to do your work, take care of things at home, or get along with other people? Answer Date of Assessment Author Not difficult at all 07/09/2025 3:26 PM Ivory Gates MA * Over the last 2 weeks, how often have you been bothered by any of the following problems? Question Answer Date of Assessment Author Feeling nervous, anxious, or on edge 2 07/09/2025 3:25 PM Pat Watts MA Not being able to stop or control worrying 1 07/09/2025 3:25 PM Pat Watts MA Worrying too much about different things 2 07/09/2025 3:25 PM Pat Watts MA Trouble relaxing 2 07/09/2025 3:25 PM EDT Ivory Starks MA Being so restless that it is hard to sit still 0 07/09/2025 3:25 PM Pat Watts MA Becoming easily annoyed or irritable 0 07/09/2025 3:25 PM Pat Watts MA Feeling afraid as if somethi ng awful might happen 1 07/09/2025 3:25 PM EDT Pat Mishra MA KIM-7 Total Score 8 07/09/2025 3:25 PM EDT Ivory Mishra MA documented as of this encounter Miscellaneous Notes * Telephone Encounter - Luis Eduardo Deleon MD - 07/09/2025 3:09 PM EDT Noted. I will send her to derm documented in this encounter Plan of Treatment Not on file documented as of this encounter Visit Diagnoses Diagnosis Skin macule documented in this encounter Additional Health Concerns Assessment Noted Time PHQ-9 Depression Total Score: 5 07/09/20 25 3:26 PM EDT documented as of this encounter Care Teams Group Director Experience Relationship Specialty Start Date End Date Luis Eduardo Deleon MD [address] [place] [address] PCP - General Family Medicine 11/04/18 documented as of this encounter
--- OUTSIDE RECORDS SUMMARY | 2025-07-25 12:45 | XMS_ITS | Encounter Summary ---
Author Organization [facility] Address [address] [place] [address] Phone Care Team Providers Care Records Supervisor Name Role Phone Name, Luis Eduardo NÚÑEZ Primary Care Provider [phone] Taryn De La Garza Unavailable [phone] Yanira Saez RN Unavailable May Howard RN Unavailable JOE [email or web address] Bell Small MD Unavailable [phone] Priya Dee RN Unavailable [phone] Chaya Gonzales GEOTECHNICAL ENGINEERING TECHNICIAN Unavailable [phone] Encounter Details Date Type Department Care Team (Late st Contact Info) Description 05/28/2018 Procedure Pass [facility] [address] [place] [address] Social History Tobacco Use Types Packs/Day Years [...] documented as of this encounter Care Teams Records Supervisor Relationship Specialty Start Date End Date Name, MD Luis Eduardo [address] [place] [address] PCP - General Geriatric Psychiatry 03/29/21 Taryn De La Garza, [facility] [address] [place] [address] Richard@[email or web address] Grommet Worker Oncology 08/09/20 02/02/24 Yanira Saez, [address] [place] [address] [email or web address]@[email or web address] Nurse Navigator 08/19/20 May Howard RN [address] [place] [phone] [email or web address]@[email or web address] Nurse Navigator 03/31/21 Bell Small MD [address] [place] [phone] Neda@[email or web address] Medical Oncology 01/03/22 Priya Dee RN [address] [phone] BRAYAN@[email or web address] Primary Infusion Nurse 08/07/23 Chaya Gonzales, [address] [address] [email or web address] Grommet Worker Oncology 02/03/24 03/31/24 documented as of this encounter Additional Source Comments The information contained in this document represents components of the legal health record. It is not the complete legal health record.[facility]
--- OUTSIDE RECORDS SUMMARY | 2025-07-25 12:45 | XMS_ITS | Encounter Summary ---
Author Organization [facility] Address [address] [facility] [address] [place] [address] Phone Care Team Providers Care Engineering Technician Name Role Phone Name, Luis Eduardo NÚÑEZ Primary Care Provider [phone] Taryn De La Garza Unavailable [phone] Yanira Saez RN Unavailable May Howard RN Unavailable JOE [email or web address] Bell Small MD Unavailable [phone] Priya Dee RN Unavailable [phone] Chaya Gonzales SCREW CUTTER Unavailable [phone] Encounter Details Date Type Department Care Team (Late st Contact Info) Description 10/17/2020 Procedure Pass [facility] MR Imaging, [place] [address] [place] [address] Social History Tobacco Use Types Packs/Day Years [...] on filedocumented in this encounter Care Teams Engineering Technician Relationship Specialty Start Date End Date Name, MD Luis Eduardo [address] [place] [id number] PCP - General Geriatric Psychiatry 03/29/21 Taryn De La Garza, [facility] [address] [place] [address] [email or web address] Spar Machine Operator Oncology 08/09/20 02/02/24 Yanira Saez, [address] [place] [address] [email or web address]@[email or web address] Nurse Navigator 08/19/20 May Howard RN [address] [place] [phone] [email or web address] Nurse Navigator 03/31/21 Bell Small MD [address] [place] [phone] Neda@[email or web address] Medical Oncology 01/03/22 Priya Dee, RN [address] [place] [address] [email or web address] Primary Infusion Nurse 08/07/23 Chaya Gonzales, [address] [address] [email or web address] Spar Machine Operator Oncology 02/03/24 03/31/24 documented as of this encounter Additional Source Comments The information contained in this document represents components of the legal health record. It is not the complete legal health record.[facility]
--- OUTSIDE RECORDS SUMMARY | 2025-07-25 12:45 | XMS_ITS | Encounter Summary ---
Author Organization [facility] Address [address] [facility] [address] [place] [address] Phone Care Team Providers Care Product Marketing Specialist Name Role Phone Name, Luis Eduardo NÚÑEZ Primary Care Provider [phone] Taryn De La Garza Unavailable [phone] Yanira Saez RN Unavailable May Howard RN Unavailable JOE [email or web address] Bell Small MD Unavailable [phone] Priya Dee RN Unavailable [phone] Chaya Gonzales SUPERVISOR FURNACE PROCESS Unavailable [phone] Encounter Details Date Type Department Care Team (Late st Contact Info) Description 05/28/2018 Procedure Pass [facility] CT Imaging, [place] [address] [place] [address] Social History Tobacco Use Types Packs/Day Years [...] documented as of this encounter Care Teams Product Marketing Specialist Relationship Specialty Start Date End Date Name, MD Luis Eduardo [address] [place] [address] PCP - General Geriatric Psychiatry 03/29/21 Taryn De La Garza, [facility] [address] [place] [address] Richard@[email or web address] System Developer Associate Manager Oncology 08/09/20 02/02/24 Yanira Saez, [address] [place] [address] EDGARDO@[email or web address] Nurse Navigator 08/19/20 May Howard RN [address] [place] [phone] [email or web address] Nurse Navigator 03/31/21 Bell Small MD [address] [place] [phone] Neda@[email or web address] Medical Oncology 01/03/22 Priya Dee RN [address] [place] [address] BRAYAN@[facility] Primary Infusion Nurse 08/07/23 Chaya Gonzales, [address] [address] [email or web address] System Developer Associate Manager Oncology 02/03/24 03/31/24 documented as of this encounter Additional Source Comments The information contained in this document represents components of the legal health record. It is not the complete legal health record.[facility]
--- OUTSIDE RECORDS SUMMARY | 2025-07-25 12:45 | XMS_ITS | Encounter Summary ---
Author Organization [facility] Address [address] [place] [address] Phone Care Team Providers Care Data Warehouse Administrator Name Role Phone Name, Luis Eduardo NÚÑEZ Primary Care Provider [phone] Taryn De La Garza Unavailable [phone] Yanira Saez RN Unavailable May Howard RN Unavailable JOE [email or web address] Bell Small MD Unavailable [phone] Priya Dee RN Unavailable [phone] Chaya GonzalesSW Unavailable [phone] Encounter Details Date Type Department Care Team (Late st Contact Info) Description 12/25/2023 Procedure Pass [facility] MR Imaging, [place] [address] [place] [address] Social History Tobacco Use Types Packs/Day Years [...] filedocumented in this encounter Care Teams Data Warehouse Administrator Relationship Specialty Start Date End Date Name, MD Luis Eduardo [address] [place] [phone] PCP - General Geriatric Psychiatry 03/29/21 Taryn De La Garza, [facility] [address] [place] [address] [email or web address] Success Coach Oncology 08/09/20 02/02/24 Yanira Saez RN [address] [place] [address] DEGARDO@[facility] Nurse Navigator 08/19/20 May Howard RN [address] [place] [phone] [email or web address]@[email or web address] Nurse Navigator 03/31/21 Bell Small MD [address] [place] [phone] Neda@[email or web address] Medical Oncology 01/03/22 Priya Dee RN [address] [place] [address] [email or web address] Primary Infusion Nurse 08/07/23 Chaya Gonzales, [address] [address] [email or web address] Success Coach Oncology 02/03/24 03/31/24 documented as of this encounter Additional Source Comments The information contained in this document represents components of the legal health record. It is not the complete legal health record.[facility]
== END 2025-07-25 12:45 | disposition home or self-care (01) ==
LOC: HO.ED 12:42
PROVIDERS: Emergency Provider Emergency Medicine; PCP Internal Medicine Geriatric Medicine
DX: R21 Rash and other nonspecific skin eruption (principal); Z79.899 Other long term (current) drug therapy
CPT/HCPCS: 99282; 99283